=== PATIENT | female | born 1955 | race American Indian/Alaskan Native ===

== ENCOUNTER 2017-10-05 02:14 | Emergency (ER) | payer BC ==
[2017-10-05] MEDS ORDERED: NACL 0.9% 1000 ML 1,000 ML IV ONE (04:03)
[2017-10-05 05:32] LABS: Basophils % (Auto) 0.4 % (0.0-1.8); Eosinophils % (Auto) 0.2 % (0.0-4.3); Hematocrit 46.3 % (30.3-42.9); Hemoglobin 15.6 gm/dl (10.1-14.3); Lymphocytes # (Auto) 1.2 K/mm3 (1.2-5.4); Lymphocytes % (Auto) 18.1 % (13.4-35.0); Mean Corpuscular HGB Conc 34 % (30-34); Mean Corpuscular Hemoglobin 33 pg (28-32); Mean Corpuscular Volume 98 fl (79-97); Monocytes # (Auto) 0.5 K/mm3 (0.0-0.8); Monocytes % (Auto) 8.1 % (0.0-7.3); Platelet Count 315 K/mm3 (140-440); Red Blood Count 4.74 M/mm3 (3.65-5.03); Red Cell Distribution Width 12.7 % (13.2-15.2)
[2017-10-05 05:44] LABS: INR 0.95 (0.87-1.13)
[2017-10-05 05:54] LABS: Alanine Aminotransferase 12 units/L (7-56); Albumin 3.6 g/dL (3.9-5); BUN/Creatinine Ratio 12; Blood Urea Nitrogen 6 mg/dL (7-17); Hemolysis Index 2; Lipase 10 units/L (13-60)
[2017-10-05 09:42] LABS: Bacteria,Urine 1+ /HPF (Negative); Bilirubin,Urine NEG (Negative); Blood,Urine SM (Negative); Color,Urine Amber (Yellow); Mucus,Urine 1+ /HPF
[2017-10-05] MEDS ORDERED: K-DUR PO ONE (10:10)
--- NOTE | 2017-10-05 11:10 | Emergency Department Report ---
ED GI Bleed HPI - General Chief complaint: GI Bleed Stated complaint: RECTAL BLEEDING Time Seen by Provider: 10/05/17 10:07 Source: patient Mode of arrival: Ambulatory Limitations: No Limitations - History of Present Illness MD complaint: gross hematochezia -: days(s) (3) Location: [facility] Radiation: none Severity scale (0 -10): 0 Quality: other (achy x 1 yr) Consistency: intermittent Context: history of GI bleed, alcohol abuse (remote) - Related Data Home Medications Medication Instructions Recorded Confirmed Last Taken Cyanocobalamin (Vitamin B-12) 2,500 mcg PO DAILY 05/02/15 05/02/15 Unknown [Vitamin B12] Folic Acid [Folvite] 1 mg PO QDAY 05/02/15 05/02/15 Unknown Hydrochlorothiazide [HCTZ] 25 mg PO QDAY 05/02/15 05/02/15 Unknown Previous Rx's Medication Instructions Recorded Last Taken Type ALBUTEROL Inhaler [ProAir HFA 2 puff IH QID 5 Days inhalation 05/02/15 Unknown Rx Inhaler] Azithromycin [Zithromax Z-TORI] 0 mg PO DAILY 5 Days tab 05/02/15 Unknown Rx predniSONE [Deltasone] 40 mg PO QDAY 5 Days tab 05/02/15 Unknown Rx Allergies Allergy/AdvReac Type Severity Reaction Status Date / Time No Known Allergies Allergy Verified 05/02/15 12:39 ED Review of Systems ROS: Stated complaint: RECTAL BLEEDING Other details as noted in HPI Comment: All other systems reviewed and negative ENT: denies: ear pain Respiratory: denies: cough, shortness of breath, SOB with exertion Cardiovascular: denies: chest pain Endocrine: denies: excessive sweating Gastrointestinal: abdominal pain Skin: denies: rash ED Past Medical Hx - Past Medical History Previous Medical History?: Yes Hx Hypertension: Yes Hx GERD: Yes Hx Arthritis: Yes Additional medical history: HERNIA - Surgical History Additional Surgical History: HYSTERECTOMY. - Social History Smoking Status: Never Smoker - Medications Home Medications: Home Medications Medication Instructions Recorded Confirmed Last Taken Type ALBUTEROL Inhaler [ProAir HFA 2 puff IH QID 5 Days inhalation 05/02/15 Unknown Rx Inhaler] Azithromycin [Zithromax Z-TORI] 0 mg PO DAILY 5 Days tab 05/02/15 Unknown Rx Cyanocobalamin (Vitamin B-12) 2,500 mcg PO DAILY 05/02/15 05/02/15 Unknown History [Vitamin B12] Folic Acid [Folvite] 1 mg PO QDAY 05/02/15 05/02/15 Unknown History Hydrochlorothiazide [HCTZ] 25 mg PO QDAY 05/02/15 05/02/15 Unknown History predniSONE [Deltasone] 40 mg PO QDAY 5 Days tab 05/02/15 Unknown Rx ED Physical Exam - General Limitations: No Limitations General appearance: alert, in no apparent distress - Head Head exam: Present: atraumatic, normocephalic, normal inspection - Eye Eye exam: Present: normal appearance, PERRL, EOMI. Absent: scleral icterus - ENT ENT exam: Present: normal exam. Absent: mucous membranes dry - Neck Neck exam: Present: normal inspection - Respiratory Respiratory exam: Present: normal lung sounds bilaterally. Absent: respiratory distress, wheezes - Cardiovascular Cardiovascular Exam: Present: regular rate, normal rhythm, normal heart sounds. Absent: systolic murmur - GI/Abdominal GI/Abdominal exam: Present: soft, normal bowel sounds, mass (palpable mass in left paraumbilical ), other (well healed midline surgical scar). Absent: distended, tenderness, guarding, rebound - Rectal Rectal exam: Present: normal rectal tone, heme (-) stool, other. Absent: black stool, bloody stool, fecal impaction, hemorrhoids (external; stool was mustard yellow color; no blood noted), mass - Neurological Exam Neurological exam: Present: alert, oriented X3, CN II-XII intact, normal gait. Absent: motor sensory deficit - Psychiatric Psychiatric exam: Present: normal affect, normal mood - Skin Skin exam: Present: warm, dry, intact ED Course Vital Signs 10/05/17 10/05/17 10/05/17 02:14 02:20 03:57 Temperature 97.9 F 97.9 F Pulse Rate 81 63 80 Respiratory 18 18 Rate Blood Pressure 142/80 139/93 142/80 Blood Pressure [Left] O2 Sat by Pulse 97 98 98 Oximetry 10/05/17 09:52 Temperature 98.3 F Pulse Rate 76 Respiratory 16 Rate Blood Pressure Blood Pressure 162/83 [Left] O2 Sat by Pulse 97 Oximetry ED Medical Decision Making - Lab Data Result diagrams: 10/05/17 04:23 10/05/17 04:23 - EKG Data EKG shows normal: sinus rhythm Rate: normal (76) - EKG Data When compared to previous EKG there are: no significant change 10/05/17 11:11 NSR rate 76 pvcs; ;normal axis; qt prolonged; no stemi and no acute changes compared to 05/02/15 EKG - Medical Decision Making [id number] spoke with Dr Fang covering for Dr Mayer who stated to dc the pt and he will send a message through the computer to the office for the pt to follow up with Dr Mayer to call the office for a follow up appt - Differential Diagnosis hemorrhoids, polyps, avm, diverticulosis Critical care attestation.: If time is entered above; I have spent that time in minutes in the direct care of this critically ill patient, excluding procedure time. ED Disposition Clinical Impression: Hematochezia Disposition: TO HOME OR SELFCARE Is pt being admited?: No Does the pt Need Aspirin: No Condition: Stable Instructions: Rectal Bleeding (ED), Abdominal Pain (ED) Additional Instructions: call the office today for a follow up appt with Dr Moreno CARDOZAP return sooner if increased bleeding, if you feel faint, dizzy, short of breath, or if further concerns Be sure to call your respite worker for a follow up appt regarding your abnormal EKG Referrals: PARESH FERGUSON [Other] - 3-5 Days ANNA MAYER MD [Staff Physician] - [facility] Time of Disposition: 11:20 Print Language: ANDORRAN
[2017-10-05 11:51] VITALS: BP 160/85
== END 2017-10-05 11:56 | disposition home or self-care (01) ==
LOC: ED 02:14
DX: K92.1 Melena (principal); I10 Essential (primary) hypertension; K21.9 Gastro-esophageal reflux disease without esophagitis; M19.90 Unspecified osteoarthritis, unspecified site
CPT/HCPCS: 36415; 80053; 81001; 83690; 85025; 85610; 85730; 86850; 86900; 86901; 93005; 93010; 96360; 96361; 99284; J7030

== ENCOUNTER 2018-12-02 08:18 | Observation (INO) | payer BC ==
[2018-12-02] MEDS ORDERED: NACL 0.9% 1000 ML 1,000 ML IV ONE (08:33)
--- NOTE | 2018-12-02 08:48 | Emergency Department Report ---
ED Syncope HPI - General Chief Complaint: Syncope Stated Complaint: PASSED OUT AT WORK Time Seen by Provider: 12/02/18 08:33 Source: patient Exam Limitations: no limitations - History of Present Illness Initial Comments: Patient is a 62-year-old female Emergency room with similar episodes on 1. Patient denies head trauma. Patient denies headache. Patient states her syncopal episode was witnessed by her coworkers. Patient states she was unconscious for a few seconds. Patient states she is feeling weak. Patient states at the time she felt lightheaded and dizzy then passed out. Patient denies dizziness and lightheadedness at this time. Patient denies chest pain shortness of breath. Patient states she has not been drinking or eating very well for a couple weeks. Timing/Prior Episodes: no prior history, single episode today Precipitating Factors: Positive: diaphoresis, lightheadedness Context: standing, activity Loss of Consciousness: brief (seconds) Current Symptoms: weakness - Related Data Allergies/Adverse Reactions: Allergies No Known Allergies Allergy (Verified 05/02/15 12:39) Home Medications: Ambulatory Orders ALBUTEROL Inhaler (OR & NICU) [ProAir HFA Inhaler] 2 puff IH QID 5 Days inhalation 05/02/15 Azithromycin [Zithromax Z-TORI] 0 mg PO DAILY 5 Days tab 05/02/15 Cyanocobalamin (Vitamin B-12) [Vitamin B12] 2,500 mcg PO DAILY 05/02/15 Folic Acid [Folvite] 1 mg PO QDAY 05/02/15 hydroCHLOROthiazide [HCTZ] 25 mg PO QDAY 05/02/15 predniSONE [Deltasone] 40 mg PO QDAY 5 Days tab 05/02/15 ED Review of Systems ROS: Stated complaint: PASSED OUT AT WORK Other details as noted in HPI Constitutional: diaphoresis. denies: chills, fever Eyes: denies: eye pain, eye discharge, vision change ENT: denies: ear pain, throat pain Respiratory: denies: cough, shortness of breath, wheezing Cardiovascular: denies: chest pain, palpitations Endocrine: no symptoms reported Gastrointestinal: denies: abdominal pain, nausea, diarrhea Genitourinary: denies: urgency, dysuria, discharge Musculoskeletal: denies: back pain, joint swelling, arthralgia Skin: denies: rash, lesions Neurological: denies: headache, weakness, paresthesias Psychiatric: denies: anxiety, depression Hematological/Lymphatic: denies: easy bleeding, easy bruising ED Past Medical Hx - Past Medical History Hx Hypertension: Yes Hx GERD: Yes Hx of Cancer: Yes (uterine) Hx Arthritis: Yes Additional medical history: HERNIA. thyroid - Surgical History Past Surgical History?: Yes Additional Surgical History: HYSTERECTOMY. - Social History Smoking Status: Never Smoker Substance Use Type: Alcohol - Medications Home Medications: Home Medications Medication Instructions Recorded Confirmed Last Taken Type ALBUTEROL Inhaler (OR & NICU) 2 puff IH QID 5 Days inhalation 05/02/15 Unknown Rx [ProAir HFA Inhaler] Azithromycin [Zithromax Z-TORI] 0 mg PO DAILY 5 Days tab 05/02/15 Unknown Rx Cyanocobalamin (Vitamin B-12) 2,500 mcg PO DAILY 05/02/15 05/02/15 Unknown History [Vitamin B12] Folic Acid [Folvite] 1 mg PO QDAY 05/02/15 05/02/15 Unknown History hydroCHLOROthiazide [HCTZ] 25 mg PO QDAY 05/02/15 05/02/15 Unknown History predniSONE [Deltasone] 40 mg PO QDAY 5 Days tab 05/02/15 Unknown Rx ED Physical Exam - General Limitations: No Limitations General appearance: alert, in no apparent distress - Head Head exam: Present: atraumatic, normocephalic - Eye Eye exam: Present: normal appearance - ENT ENT exam: Present: mucous membranes dry - Neck Neck exam: Present: normal inspection - Respiratory Respiratory exam: Present: normal lung sounds bilaterally. Absent: respiratory distress, wheezes, rales - Cardiovascular Cardiovascular Exam: Present: regular rate, normal rhythm. Absent: systolic murmur, diastolic murmur, rubs, gallop - GI/Abdominal GI/Abdominal exam: Present: soft, normal bowel sounds - Rectal Rectal exam: Present: deferred - Extremities Exam Extremities exam: Present: normal inspection - Back Exam Back exam: Present: normal inspection - Neurological Exam Neurological exam: Present: alert, oriented X3 - Psychiatric Psychiatric exam: Present: normal affect, normal mood - Skin Skin exam: Present: warm, dry, intact, normal color. Absent: rash ED Course Vital Signs 12/02/18 12/02/18 12/02/18 08:28 08:57 09:00 Temperature 97.5 F L Pulse Rate 85 91 H Respiratory 18 20 16 Rate Blood Pressure 84/53 98/60 O2 Sat by Pulse 98 88 97 Oximetry - Reevaluation(s) Reevaluation #1: Discussed all results with patient. Patient will be admitted to the hospitalist service. Patient agrees to plan of care. 12/02/18 10:35 - Consultations Consultation #1: Hospitalist consulted for admission. Hospitalist to admit patient. Hospitalist to assume care patient. 12/02/18 10:29 ED Medical Decision Making - Lab Data Result diagrams: 12/02/18 08:42 12/02/18 08:42 - EKG Data -: EKG Interpreted by Me EKG shows normal: sinus rhythm, axis, intervals, QRS complexes, ST-T waves Rate: tachycardia - Radiology Data Radiology results: report reviewed CT HEAD WITHOUT CONTRAST: HISTORY: Syncope. TECHNIQUE: Sequential 2.5mm CT images. COMPARISON: none. FINDINGS: Cerebral Parenchyma: Within normal limits. Cerebellum: Within normal limits. Brainstem: Within normal limits. Ventricles: Normal. Sella: Normal. Extra-axial spaces: Normal. Basal Cisterns: Normal. Intracranial Hemorrhage: None. Midline Shift: None. Calvarium: Normal. Sinuses: Normal. Mastoid Air Cells: Normal. Visualized Orbits: Normal. IMPRESSION: Cranial CT scan within normal limits. - Medical Decision Making Patient is a 62-year-old female that presents emergency room for sequential. Patient found to be hypotensive in triage. Patient given fluids and her blood pressure improved slightly. Patient found to have chemistry abnormalities. Patient's head CT negative. Patient was admitted to the hospitalist service for further evaluation and treatment. - Differential Diagnosis syncope. Hypotension. Dehydration. Critical Care Time: Yes Critical care attestation.: If time is entered above; I have spent that time in minutes in the direct care of this critically ill patient, excluding procedure time. Critical Care Time: 45 minutes ED Disposition Clinical Impression: Hypokalemia, Dehydration, Acute renal insufficiency Hypotension Qualifiers: Hypotension type: unspecified hypotension type Qualified Code(s): I95.9 - Hypotension, unspecified Syncope Qualifiers: Syncope type: unspecified Qualified Code(s): R55 - Syncope and collapse Disposition: 09 OP ADMIT IP TO THIS HOSP Is pt being admited?: Yes Does the pt Need Aspirin: No Condition: Critical Referrals: AMIRAH PACHECO MD [Primary Care Provider] - 3-5 Days Time of Disposition: 10:30
--- NOTE | 2018-12-02 08:52 | Event Note ---
ED Screening Note ED Screening Note: syncope at work; completely out by report 2-3 other times this week; 1 w fall and 1 w sitting being worked up for thyroid disease recent weight loss on bp meds bp low in triage to main This initial assessment/diagnostic orders/clinical plan/treatment(s) is/are subject to change based on patients health status, clinical progression and re- assessment by fellow clinical providers in the ED. Further treatment and workup at subsequent clinical providers discretion. Patient/guardian urged not to elope from the ED as their condition may be serious if not clinically assessed and managed. Initial orders include:
[2018-12-02 08:55] LABS: Basophils % (Auto) 0.5 % (0.0-1.8); Eosinophils % (Auto) 0.2 % (0.0-4.3); Hematocrit 43.6 % (30.3-42.9); Hemoglobin 15.3 gm/dl (10.1-14.3); Lymphocytes # (Auto) 1.7 K/mm3 (1.2-5.4); Lymphocytes % (Auto) 17.8 % (13.4-35.0); Mean Corpuscular HGB Conc 35 % (30-34); Mean Corpuscular Volume 99 fl (79-97); Platelet Count 398 K/mm3 (140-440); Red Blood Count 4.41 M/mm3 (3.65-5.03); Red Cell Distribution Width 13.1 % (13.2-15.2)
[2018-12-02 09:21] LABS: Alanine Aminotransferase 32 units/L (7-56); Albumin 3.7 g/dL (3.9-5); BUN/Creatinine Ratio 9; Blood Urea Nitrogen 12 mg/dL (7-17); Calcium 8.2 mg/dL (8.4-10.2); Hemolysis Index 5
[2018-12-02 09:30] LABS: Creatine Kinase MB 1.9 ng/mL (0.0-4.0)
--- NOTE | 2018-12-02 09:36 | Cat Scan Report ---
CT HEAD WITHOUT CONTRAST: HISTORY: Syncope. TECHNIQUE: Sequential 2.5mm CT images. COMPARISON: none. FINDINGS: Cerebral Parenchyma: Within normal limits. Cerebellum: Within normal limits. Brainstem: Within normal limits. Ventricles: Normal. Sella: Normal. Extra-axial spaces: Normal. Basal Cisterns: Normal. Intracranial Hemorrhage: None. Midline Shift: None. Calvarium: Normal. Sinuses: Normal. Mastoid Air Cells: Normal. Visualized Orbits: Normal. IMPRESSION: Cranial CT scan within normal limits.
[2018-12-02] MEDS ORDERED: KCL 10MEQ/100ML 10 MEQ/100 ML BAG IV ONE (10:51)
[2018-12-02] MEDS: KCL 10MEQ/100ML 10 MEQ/100 ML BAG IV SCH ×2 (10:56→19:07)
[2018-12-02] MEDS ORDERED: K-DUR PO ONE ×2 (11:30→18:00)
[2018-12-02] MEDS ORDERED: SODIUM CHLORIDE FLUSH SYRINGE 10 ML IV PRN (12:48)
[2018-12-02] MEDS ORDERED: TYLENOL PO PRN (12:48)
[2018-12-02] MEDS ORDERED: ZOFRAN IV PRN (12:48)
[2018-12-02 14:03] LABS: BUN/Creatinine Ratio 12; Blood Urea Nitrogen 13 mg/dL (7-17); Calcium 7.9 mg/dL (8.4-10.2); Hemolysis Index 41
--- NOTE | 2018-12-02 14:26 | History and Physical Report ---
History of Present Illness Date of examination: 12/02/18 Date of admission: 12/02/18 10:48 Chief complaint: Syncopal episode History of present illness: 62-year-old female with past medical history significant for hypertension, thyroid problem, presented to the emergency department with complaints of syncopal episodes that happened this morning while she was at work. Patient denies any prodromal symptoms and she passed out for 2 seconds. Patient also passed out 2 days ago and right-side. Patient said she was not eating and drinking for the last few days because she doesn't have a taste for food. In the emergency department his blood pressure was low. patient said she has been taking BP meds every day. Patient was given IV fluids, and repleted electro lytes and admitted to the floor for Observation. CT head was negative. REVIEW OF SYSTEMS: GENERAL: no weight change, no fatigue, no fever HEAD: no head ache EYES: no blurry vision, no acute visual loss EARS: no hearing loss, no discharge, no earache NOSE: no stuffiness, no sneezing, no discharge MOUTH, THROAT AND NECK: no bleeding gums, no sore throat, no swollen neck CARDIAC: no palpitations, no dyspnea on exertion, no orthopnea, no PND, no edema, no chest pain RESPIRATORY: no shortness of breath, no wheeze, no cough, no sputum, no hemoptysis, no asthma GI: no decreased appetite, no nausea, no vomiting, no dysphagia, no diarrhea, no constipation, no abdominal pain URINARY: no change in frequency, no urgency, no polyuria, no hematuria, no incontinence MUSCULOSKELETAL: no muscle weakness, no pain, no joint stiffness NEUROLOGIC: no loss of sensation/numbness, no tingling, no tremors, no weakness/paralysis HEMATOLOGIC: no anemia, no easy bruising SKIN: no rashes ENDOCRINE: no heat/cold intolerance, no polyuria, no polydipsia, no thyroid problems, no diabetes PSYCHIATRIC: no anxiety, no depression, no suicidal ideations Past History Past Medical History: hypertension Past Surgical History: , hysterectomy Social history: alcohol abuse (drinks 3 glasses of mixed drinks everyday). denies: smoking Family history: diabetes (mother), stroke (mother) Medications and Allergies Allergies Allergy/AdvReac Type Severity Reaction Status Date / Time No Known Allergies Allergy Verified 05/02/15 12:39 Home Medications Medication Instructions Recorded Confirmed Last Taken Type Folic Acid [Folvite] 1 mg PO QDAY 05/02/15 12/02/18 Unknown History Lisinopril/Hydrochlorothiazide 1 tab PO QDAY 12/02/18 12/02/18 Unknown History [Zestoretic 20-25 mg] Potassium Chloride [K-Dur] 10 meq PO QDAY 12/02/18 12/02/18 Unknown History Active Meds: Active Medications Acetaminophen (Tylenol) 650 mg PO Q4H PRN PRN Reason: Pain MILD(1-3)/Fever >100.5/BORGES Famotidine (Pepcid) 20 mg PO BID BRIELLE Sodium Chloride (Nacl 0.45% 1000 Ml) 1,000 mls @ 100 mls/hr IV DIRECT BRIELLE Ondansetron HCl (Zofran) 4 mg IV Q8H PRN PRN Reason: Nausea And Vomiting Sodium Chloride (Sodium Chloride Flush Syringe 10 Ml) 10 ml IV BID BRIELLE Sodium Chloride (Sodium Chloride Flush Syringe 10 Ml) 10 ml IV PRN PRN PRN Reason: LINE FLUSH Exam - Physical Exam Narrative exam: Not in cardiopulmonary distress. The patient appeared well nourished and normally developed. Vital signs as documented. Head exam is unremarkable. No scleral icterus . Neck is without jugular venous distension, thyromegaly, or carotid bruits. Lungs are clear to auscultation. Cardiac exam reveals regular rate and Rhythm. First and second heart sounds normal. No murmurs, rubs or gallops. Abdominal exam reveals normal bowel sounds, no masses, no organomegaly and no aortic enlargement. Extremities are nonedematous and both femoral and pedal pulses are normal. STORE MERCHANDISER: Alert and oriented 3. No focal weakness. - Constitutional Vitals: Temp Pulse Resp BP Pulse Ox 97.5 F L 87 13 111/54 100 12/02/18 08:28 12/02/18 11:41 12/02/18 11:41 12/02/18 11:41 12/02/18 11:41 Results - Labs CBC & Chem 7: 12/02/18 08:42 12/02/18 13:16 Labs: Laboratory Last Values WBC 9.3 K/mm3 (4.5-11.0) 12/02/18 08:42 RBC 4.41 M/mm3 (3.65-5.03) 12/02/18 08:42 Hgb 15.3 gm/dl (10.1-14.3) H 12/02/18 08:42 Hct 43.6 % (30.3-42.9) H 12/02/18 08:42 MCV 99 fl (79-97) H 12/02/18 08:42 MCH 35 pg (28-32) H 12/02/18 08:42 MCHC 35 % (30-34) H 12/02/18 08:42 RDW 13.1 % (13.2-15.2) L 12/02/18 08:42 Plt Count 398 K/mm3 (140-440) 12/02/18 08:42 Lymph % (Auto) 17.8 % (13.4-35.0) 12/02/18 08:42 [place] % (Auto) 11.0 % (0.0-7.3) H 12/02/18 08:42 Eos % (Auto) 0.2 % (0.0-4.3) 12/02/18 08:42 Baso % (Auto) 0.5 % (0.0-1.8) 12/02/18 08:42 Lymph # 1.7 K/mm3 (1.2-5.4) 12/02/18 08:42 [place] # 1.0 K/mm3 (0.0-0.8) H 12/02/18 08:42 Eos # 0.0 K/mm3 (0.0-0.4) 12/02/18 08:42 Baso # 0.0 K/mm3 (0.0-0.1) 12/02/18 08:42 Seg Neutrophils % 70.5 % (40.0-70.0) H 12/02/18 08:42 Seg Neutrophils # 6.5 K/mm3 (1.8-7.7) 12/02/18 08:42 Sodium 135 mmol/L (137-145) L 12/02/18 13:16 Potassium 3.6 mmol/L (3.6-5.0) D 12/02/18 13:16 Chloride 96.0 mmol/L (98-107) L 12/02/18 13:16 Carbon Dioxide 26 mmol/L (22-30) 12/02/18 13:16 17 mmol/L 12/02/18 13:16 BUN 13 mg/dL (7-17) 12/02/18 13:16 1.1 mg/dL (0.7-1.2) 12/02/18 13:16 Estimated GFR > 60 ml/min 12/02/18 13:16 12 % 12/02/18 13:16 Glucose 87 mg/dL (65-100) 12/02/18 13:16 POC Glucose 109 (70-105) H 12/02/18 08:44 Calcium 7.9 mg/dL (8.4-10.2) L 12/02/18 13:16 Magnesium 1.80 mg/dL (1.7-2.3) 12/02/18 08:42 1.60 mg/dL (0.1-1.2) H 12/02/18 08:42 AST 72 units/L (5-40) H 12/02/18 08:42 ALT 32 units/L (7-56) 12/02/18 08:42 105 units/L (35-129) 12/02/18 08:42 41 units/L (30-135) 12/02/18 08:42 CK-MB (CK-2) 1.9 ng/mL (0.0-4.0) 12/02/18 08:42 CK-MB (CK-2) Rel Index 4.6 (0-4) H 12/02/18 08:42 < 0.010 ng/mL (0.00-0.029) 12/02/18 08:42 6.9 g/dL (6.3-8.2) 12/02/18 08:42 3.7 g/dL (3.9-5) L 12/02/18 08:42 1.2 % 12/02/18 08:42 8.5 ug/dL (4.0-12.0) 12/02/18 08:42 Assessment and Plan Assessment and plan: Syncopal episode, autonomic disequilibrium - Likely due to hypotension - Patient was given IV fluids - CT head negative - held the BP medications Hypokalemia, hyponatremia - Related to his potassium - Check magnesium level - Continue IV fluid NICOLLE; likely due to vasomotor nephropathy - IV fluid DVT prophylaxis - On heparin Disposition - Admit to medical floor for observation Advance Directives: Yes VTE prophylaxis?: Chemical Plan of care discussed with patient/family: Yes
[2018-12-02] MEDS ORDERED: KCL 10MEQ/100ML 10 MEQ/100 ML BAG IV SCH (19:00)
[2018-12-02] MEDS: NACL 0.45% 1000 ML 1,000 ML IV SCH (19:05)
[2018-12-02] MEDS ORDERED: DILAUDID IM PRN (21:27)
[2018-12-02] MEDS: SODIUM CHLORIDE FLUSH SYRINGE 10 ML IV SCH (21:42)
[2018-12-02] MEDS: PEPCID PO SCH (21:42)
[2018-12-02] MEDS: HEPARIN SUB-Q SCH (21:42)
[2018-12-03 04:01] VITALS: BP 114/78
[2018-12-03] MEDS: NACL 0.45% 1000 ML 1,000 ML IV SCH (04:52)
[2018-12-03] MEDS: HEPARIN SUB-Q SCH (05:00)
[2018-12-03 08:13] LABS: BUN/Creatinine Ratio 16; Blood Urea Nitrogen 13 mg/dL (7-17); Hemolysis Index 2
[2018-12-03] MEDS: PEPCID PO SCH (09:34)
[2018-12-03] MEDS: SODIUM CHLORIDE FLUSH SYRINGE 10 ML IV SCH (09:37)
--- NOTE | 2018-12-03 10:01 | Discharge Summary ---
Providers - Providers Date of Admission: 12/02/18 10:48 Attending physician: ROLANDO ARECHIGA MD [facility] Reason for admission: syncope, medication induced hypotension Condition: Stable Pertinent studies: CT head Hospital course: 62-year-old female with past medical history significant for hypertension, thyroid problem, presented to the emergency department with complaints of syncopal episodes that happened this morning while she was at work. Patient denies any prodromal symptoms and she passed out for 2 seconds. Patient also passed out 2 days ago and right-side. Patient said she was not eating and drinking for the last few days because she doesn't have a taste for food. In the emergency department his blood pressure was low. patient said she has been taking BP meds every day. Patient was given IV fluids, and repleted electrolytes and admitted to the floor for Observation. CT head was negative. Patient was admitted to the floor was treated with Iv fluids and electrolye abnormalities were corrected. patients symptoms resolved. patient advised to stop taking antihypertensive and discharged home. patient said has an appointment with her physician to check her thyroid. patient was hemodynamically stable at the time of discharge. Disposition: DC-01 TO HOME OR SELFCARE Time spent for discharge: 32 minutes - Discharge Diagnoses (1) Dehydration Status: Acute (2) Hypokalemia Status: Acute (3) Hypotension Status: Acute Qualifiers: Hypotension type: unspecified hypotension type Qualified Code(s): I95.9 - Hypotension, unspecified (4) Syncope Status: Acute Qualifiers: Syncope type: unspecified Qualified Code(s): R55 - Syncope and collapse (5) Acute renal insufficiency Status: Acute Core Measure Documentation - Palliative Care Palliative Care/ Comfort Measures: Not Applicable - Core Measures Any of the following diagnoses?: none Exam - Physical Exam Narrative exam: Not in cardiopulmonary distress. The patient appeared well nourished and normally developed. Vital signs as documented. Head exam is unremarkable. No scleral icterus . Neck is without jugular venous distension, thyromegaly, or carotid bruits. Lungs are clear to auscultation. Cardiac exam reveals regular rate and Rhythm. First and second heart sounds normal. No murmurs, rubs or gallops. Abdominal exam reveals normal bowel sounds, no masses, no organomegaly and no aortic enlargement. Extremities are nonedematous and both femoral and pedal pulses are normal. HAIR TINTER: Alert and oriented 3. No focal weakness. - Constitutional Vitals: Temp Pulse Resp BP Pulse Ox 98.3 F 97 H 16 114/78 98 12/02/18 23:46 12/02/18 23:46 12/02/18 23:46 12/02/18 23:46 12/02/18 23:46 Plan Activity: no restrictions Weight Bearing Status: Full Weight Bearing Diet: regular Follow up with: AMIRAH PACHECO MD [Primary Care Provider] - 3-5 Days Forms: Work/School Release Form
== END 2018-12-03 12:07 | disposition home or self-care (01) ==
LOC: ED 08:18 → 3A 10:48 → INTOOBSV 10:48
PROVIDERS: ADMIT Internal Medicine; ATTEND Internal Medicine
DX: R55 Syncope and collapse (principal); G90.8 Other disorders of autonomic nervous system; N17.0 Acute kidney failure with tubular necrosis; E87.1 Hypo-osmolality and hyponatremia; E87.6 Hypokalemia; I95.9 Hypotension, unspecified; I10 Essential (primary) hypertension; K21.9 Gastro-esophageal reflux disease without esophagitis; E86.0 Dehydration; F10.10 Alcohol abuse, uncomplicated; Y90.9 Presence of alcohol in blood, level not specified; Z79.51 Long term (current) use of inhaled steroids; Z90.710 Acquired absence of both cervix and uterus; Z85.42 Personal history of malignant neoplasm of other parts of uterus; Z82.3 Family history of stroke; Z83.3 Family history of diabetes mellitus
CPT/HCPCS: 36415; 70450; 80048; 80053; 82550; 82553; 82747; 82962; 83735; 84436; 84443; 84484; 85025; 93005; 93010; 96360; 99291; G0378; J1644; J2405; J3480; J7030; J1170

== ENCOUNTER 2019-05-04 04:01 | Inpatient (IN) | payer BC ==
[2019-05-04 05:28] LABS: Basophils % (Auto) 0.4 % (0.0-1.8); Eosinophils % (Auto) 0.1 % (0.0-4.3); Hematocrit 29.9 % (30.3-42.9); Hemoglobin 10.2 gm/dl (10.1-14.3); Lymphocytes # (Auto) 1.3 K/mm3 (1.2-5.4); Lymphocytes % (Auto) 10.5 % (13.4-35.0); Mean Corpuscular HGB Conc 34 % (30-34); Mean Corpuscular Volume 98 fl (79-97); Monocytes # (Auto) 1.7 K/mm3 (0.0-0.8); Monocytes % (Auto) 13.3 % (0.0-7.3); Platelet Count 289 K/mm3 (140-440); Red Blood Count 3.07 M/mm3 (3.65-5.03); Red Cell Distribution Width 13.4 % (13.2-15.2)
[2019-05-04 05:44] LABS: Alanine Aminotransferase 17 units/L (7-56); Albumin 3.1 g/dL (3.9-5); BUN/Creatinine Ratio 16; Blood Urea Nitrogen 11 mg/dL (7-17); Calcium 7.2 mg/dL (8.4-10.2); Hemolysis Index 1
[2019-05-04] MEDS ORDERED: POTASSIUM CHLORIDE ER 20 MEQ TAB PO ONE (06:32)
--- NOTE | 2019-05-04 06:46 | Emergency Department Report ---
ED Neuro Deficit HPI - General Chief Complaint: Neuro Symptoms/Deficit Stated Complaint: NUMBNESS IN HANDS/RT LEG Time Seen by Provider: 05/04/19 06:30 Source: patient Mode of arrival: Ambulatory Limitations: Physical Limitation - History of Present Illness Initial Comments: Mrs. Clark is a 63 yo female with hx of hyperthyroidism who presents with right leg weakness and bilateral hand cramping burning pain. For the past several weeks she's had stomach issues. She Has been unable to eat for the last 5 days due to severe nausea vomiting. She has had crampy abdominal pain which is worse after vomiting. Follow up by [facility] for "digestive problems". She underwent an MRI yesterday to investigate her GI symptoms. After obtaining the MRI outpatient setting, she developed right leg weakness. Had difficulty getting in and out of her car. Had difficulty driving. She felt stiff in her right leg. Her family member needed to drive her to the emergency department due to her severe symptoms. She subsequently developed bilateral hand burning. Extremely annoying sensation. She has lost 125 pounds over the last year due to thyroid disease. She does admit to drinking 2 drinks of vodka daily. She denies tobacco use. Due to her recent stomach issues, she has been unable to drink alcohol. PCP Dr. Cory Mejia. She is followed by an information systems security specialist is unable to recall the name of the specialist. -: Sudden, days(s) (1) Location: right leg Presenting Symptoms: Present: Weak/Paralyzed One Side History of same: No Place: other (after leaving MRI center) Severity: moderate Quality: weak, other (stiff) Improves With: none Worsens With: none On Anticoagulants: No Context: sudden onset Associated Symptoms: other (hand burning) Treatments Prior to Arrival: none - Related Data Home Medications: Home Medications Medication Instructions Recorded Confirmed Last Taken Folic Acid [Folvite] 1 mg PO QDAY 05/02/15 12/02/18 Unknown Allergies/Adverse Reactions: Allergies Allergy/AdvReac Type Severity Reaction Status Date / Time No Known Allergies Allergy Verified 05/02/15 12:39 ED Review of Systems ROS: Stated complaint: NUMBNESS IN HANDS/RT LEG Other details as noted in HPI Comment: All other systems reviewed and negative Constitutional: malaise. denies: fever Respiratory: denies: cough, shortness of breath Cardiovascular: denies: chest pain Gastrointestinal: abdominal pain, nausea, vomiting. denies: diarrhea Skin: denies: rash, lesions Neurological: paresthesias ED Past Medical Hx - Past Medical History Previous Medical History?: Yes Hx Hypertension: Yes Hx GERD: Yes Hx Arthritis: Yes Additional medical history: HERNIA;. Hyperthyroidism - Surgical History Past Surgical History?: Yes Additional Surgical History: HYSTERECTOMY. - Family History Family history: diabetes - Social History Smoking Status: Never Smoker Substance Use Type: Alcohol (drinks vodka cocktails daily) Other Social History: works as a cook in a fast food [email or web address] - Medications Home Medications: Home Medications Medication Instructions Recorded Confirmed Last Taken Type Folic Acid [Folvite] 1 mg PO QDAY 05/02/15 12/02/18 Unknown History ED Neuro Physical Exam - General Limitations: Physical Limitation General appearance: alert, in no apparent distress Suspected Stroke: Yes - Head Head exam: Present: atraumatic, normocephalic - Eye Eye exam: Present: normal appearance - ENT ENT exam: Present: mucous membranes moist - Neck Neck exam: Present: normal inspection, full ROM - Respiratory Respiratory exam: Present: normal lung sounds bilaterally. Absent: respiratory distress, wheezes, rales, rhonchi, stridor - Cardiovascular Cardiovascular Exam: Present: regular rate, normal rhythm, normal heart sounds. Absent: systolic murmur, diastolic murmur, rubs, gallop - GI/Abdominal GI/Abdominal exam: Present: soft, normal bowel sounds. Absent: distended, tenderness, guarding, rebound - Extremities Exam Extremities exam: Present: pedal edema, other (1+ pitting edema, right lower extremity larger than the left) - Neurological Exam Neurological exam: Present: alert, oriented X3 - NIHSS Assessment Interval: Baseline 1a. Level of Consciousness: alert/keenly responsive 1b. LOC Questions: answers both correctly 1c. LOC Commands: performs tasks correctly 2. Best Gaze: normal 3. Visual: no visual loss 4. Facial Palsy: normal symmetrical movement 5b. Motor Arm Right: no drift 5a. Motor Arm Left: no drift 6a. Motor Leg Left: some gravity effort 6b. Motor Leg Right: some gravity effort 7. Limb Ataxia: absent 8. Sensory: normal 9. Best Language: no aphasia 10. Dysarthria: normal 11. Extinction/Inattention: no abnormality Total Score: 4 Stroke Severity: Minor Stroke - Psychiatric Psychiatric exam: Present: normal affect, normal mood - Skin Skin exam: Present: warm, dry, intact, normal color. Absent: rash ED Course Vital Signs 05/04/19 05/04/19 05/04/19 04:07 04:50 06:00 Temperature 97.8 F 97.8 F Pulse Rate 77 90 96 H Respiratory 18 19 18 Rate Blood Pressure 125/69 Blood Pressure 111/71 126/79 [Left] O2 Sat by Pulse 98 98 97 Oximetry 05/04/19 05/04/19 05/04/19 06:30 07:00 07:17 Temperature Pulse Rate 106 H 98 H 99 H Respiratory 17 19 20 Rate Blood Pressure 122/74 122/74 Blood Pressure 117/55 [Left] O2 Sat by Pulse 98 97 96 Oximetry 05/04/19 05/04/19 07:30 08:02 Temperature Pulse Rate 100 H Respiratory 14 Rate Blood Pressure 117/55 109/51 Blood Pressure [Left] O2 Sat by Pulse 97 98 Oximetry - Lab Data Result diagrams: 05/04/19 05:18 05/04/19 05:18 Lab Results 05/04/19 05/04/19 05/04/19 Range/Units 05:18 05:18 06:39 WBC 12.7 H (4.5-11.0) K/mm3 RBC 3.07 L (3.65-5.03) M/mm3 Hgb 10.2 (10.1-14.3) gm/dl Hct 29.9 L (30.3-42.9) % MCV 98 H (79-97) fl MCH 33 H (28-32) pg MCHC 34 (30-34) % RDW 13.4 (13.2-15.2) % Plt Count 289 (140-440) K/mm3 Lymph % (Auto) 10.5 L (13.4-35.0) % [place] % (Auto) 13.3 H (0.0-7.3) % Eos % (Auto) 0.1 (0.0-4.3) % Baso % (Auto) 0.4 (0.0-1.8) % Lymph # 1.3 (1.2-5.4) K/mm3 [place] # 1.7 H (0.0-0.8) K/mm3 Eos # 0.0 (0.0-0.4) K/mm3 Baso # 0.0 (0.0-0.1) K/mm3 Seg Neutrophils % 75.7 H (40.0-70.0) % Seg Neutrophils # 9.6 H (1.8-7.7) K/mm3 PT (12.2-14.9) Sec. INR (0.87-1.13) APTT (24.2-36.6) Sec. Potassium 2.3 L* (3.6-5.0) mmol/L Carbon Dioxide 31 H (22-30) mmol/L BUN 11 (7-17) mg/dL Creatinine 0.7 (0.7-1.2) mg/dL Estimated GFR > 60 ml/min BUN/Creatinine Ratio 16 % Glucose 85 (65-100) mg/dL Calcium 7.2 L (8.4-10.2) mg/dL Magnesium 1.30 L (1.7-2.3) mg/dL Total Bilirubin 3.60 H (0.1-1.2) mg/dL AST 50 H (5-40) units/L ALT 17 (7-56) units/L Alkaline Phosphatase 69 (35-129) units/L Total Creatine Kinase (30-135) units/L CK-MB (CK-2) (0.0-4.0) ng/mL CK-MB (CK-2) Rel Index (0-4) Troponin T (0.00-0.029) ng/mL Total Protein 5.4 L (6.3-8.2) g/dL Albumin 3.1 L (3.9-5) g/dL Albumin/Globulin Ratio 1.3 % Lipase (13-60) units/L Vitamin B12 (211-911) pg/mL 05/04/19 05/04/19 05/04/19 Range/Units 06:39 06:39 06:59 WBC (4.5-11.0) K/mm3 RBC (3.65-5.03) M/mm3 Hgb (10.1-14.3) gm/dl Hct (30.3-42.9) % MCV (79-97) fl MCH (28-32) pg MCHC (30-34) % RDW (13.2-15.2) % Plt Count (140-440) K/mm3 Lymph % (Auto) (13.4-35.0) % [place] % (Auto) (0.0-7.3) % Eos % (Auto) (0.0-4.3) % Baso % (Auto) (0.0-1.8) % Lymph # (1.2-5.4) K/mm3 [place] # (0.0-0.8) K/mm3 Eos # (0.0-0.4) K/mm3 Baso # (0.0-0.1) K/mm3 Seg Neutrophils % (40.0-70.0) % Seg Neutrophils # (1.8-7.7) K/mm3 PT 14.7 (12.2-14.9) Sec. INR 1.16 H (0.87-1.13) APTT 29.4 (24.2-36.6) Sec. Potassium (3.6-5.0) mmol/L Carbon Dioxide (22-30) mmol/L BUN (7-17) mg/dL Creatinine (0.7-1.2) mg/dL Estimated GFR ml/min BUN/Creatinine Ratio % Glucose (65-100) mg/dL Calcium (8.4-10.2) mg/dL Magnesium (1.7-2.3) mg/dL Total Bilirubin (0.1-1.2) mg/dL AST (5-40) units/L ALT (7-56) units/L Alkaline Phosphatase (35-129) units/L Total Creatine Kinase 55 (30-135) units/L CK-MB (CK-2) 1.2 (0.0-4.0) ng/mL CK-MB (CK-2) Rel Index 2.1 (0-4) Troponin T < 0.010 (0.00-0.029) ng/mL Total Protein (6.3-8.2) g/dL Albumin (3.9-5) g/dL Albumin/Globulin Ratio % Lipase (13-60) units/L Vitamin B12 634.6 (211-911) pg/mL 05/04/19 Range/Units 06:59 WBC (4.5-11.0) K/mm3 RBC (3.65-5.03) M/mm3 Hgb (10.1-14.3) gm/dl Hct (30.3-42.9) % MCV (79-97) fl MCH (28-32) pg MCHC (30-34) % RDW (13.2-15.2) % Plt Count (140-440) K/mm3 Lymph % (Auto) (13.4-35.0) % [place] % (Auto) (0.0-7.3) % Eos % (Auto) (0.0-4.3) % Baso % (Auto) (0.0-1.8) % Lymph # (1.2-5.4) K/mm3 [place] # (0.0-0.8) K/mm3 Eos # (0.0-0.4) K/mm3 Baso # (0.0-0.1) K/mm3 Seg Neutrophils % (40.0-70.0) % Seg Neutrophils # (1.8-7.7) K/mm3 PT (12.2-14.9) Sec. INR (0.87-1.13) APTT (24.2-36.6) Sec. Potassium (3.6-5.0) mmol/L Carbon Dioxide (22-30) mmol/L BUN (7-17) mg/dL Creatinine (0.7-1.2) mg/dL Estimated GFR ml/min BUN/Creatinine Ratio % Glucose (65-100) mg/dL Calcium (8.4-10.2) mg/dL Magnesium (1.7-2.3) mg/dL Total Bilirubin (0.1-1.2) mg/dL AST (5-40) units/L ALT (7-56) units/L Alkaline Phosphatase (35-129) units/L Total Creatine Kinase (30-135) units/L CK-MB (CK-2) (0.0-4.0) ng/mL CK-MB (CK-2) Rel Index (0-4) Troponin T (0.00-0.029) ng/mL Total Protein (6.3-8.2) g/dL Albumin (3.9-5) g/dL Albumin/Globulin Ratio % Lipase 4 L (13-60) units/L Vitamin B12 (211-911) pg/mL 05/04/19 06:47 EKG obtained 0453 Normal sinus rhythm rate 95 beats per minute left axis deviation prolonged QT in terval frequent PVCs. No ST elevation nonspecific T wave pattern - Radiology Data Radiology results: report reviewed ct head: NAP - Medical Decision Making Mrs. Clrak presents with right lower extremity pain stiffness weakness. She also has bilateral hand pain. Differential diagnosis includes peripheral alcoholic neuropathy versus CVA versus lumbar radiculopathy to account for the right leg weakness. Bilateral hand weakness could also be attributed to hypokalemia versus neuropathic pain due to vitamin deficiency. Thamine level ordered. She will need CVA evaluation. Right lower extremity Doppler ultrasound also obtained. Admitted to the Medicine service for further treatment and evaluation. Although acute CVA is on the differential diagnosis, TPA is not indicated due to time of onset. Upon review of labs, elevated bilirubin, AST with hypoalbuminemia and hypoproteinemia suggestive of alcoholic liver disease Critical care attestation.: If time is entered above; I have spent that time in minutes in the direct care of this critically ill patient, excluding procedure time. ED Disposition Clinical Impression: Right leg weakness, Hypokalemia, Bilateral hand pain, Liver disease Disposition: OP ADMIT IP TO THIS HOSP Is pt being admited?: Yes Does the pt Need Aspirin: No Condition: Stable
[2019-05-04] MEDS ORDERED: SODIUM CHLORIDE 0.9% 500 ML 500 ML ONE (06:54)
[2019-05-04] MEDS: POTASSIUM CHLORIDE 10 MEQ 10 MEQ/100 ML BAG IV SCH ×4 (06:59→11:39)
[2019-05-04] MEDS ORDERED: SODIUM CHLORIDE 0.9% 500 ML 500 ML IV ONE (07:01)
[2019-05-04 07:22] LABS: Creatine Kinase MB 1.2 ng/mL (0.0-4.0)
[2019-05-04 07:23] LABS: INR 1.16 (0.87-1.13)
[2019-05-04 07:24] LABS: Partial Thromboplastin Time 29.4 Sec. (24.2-36.6)
--- NOTE | 2019-05-04 08:20 | Cat Scan Report ---
CT head without contrast INDICATION : right leg weakness. TECHNIQUE: Axial imaging performed from the skull apex through the skull base without the use of con trast. All CT scans at this location are performed using CT dose reduction for ALARA by means of aut omated exposure control. COMPARISON: CT head from 12/02/2018 FINDINGS: Parenchyma: No acute intracranial hemorrhage or parenchymal abnormality. There are stable periventri cular hypodensities which may be seen with microangiopathy. Ventricles: Ventricles are normal in size and appear symmetric. Soft tissues: Soft tissues including the orbits appear normal. Bones: No acute osseous abnormality. Sinuses: Sinuses and mastoid air cells are clear. IMPRESSION: No acute abnormality. Signer Name: Dick Mcgrath MD Signed: 05/04/2019 8:16 AM Workstation Name: [id number]
[2019-05-04] MEDS ORDERED: ASPIRIN 81 MG TAB CHEW PO ONE (08:33)
[2019-05-04 09:11] LABS: BUN/Creatinine Ratio 22; Blood Urea Nitrogen 11 mg/dL (7-17); Calcium 7.1 mg/dL (8.4-10.2); Hemolysis Index 12
[2019-05-04] MEDS ORDERED: POTASSIUM CHLORIDE 10 MEQ 10 MEQ/100 ML BAG IV ONE (09:58)
--- NOTE | 2019-05-04 10:05 | Vascular Lab Report ---
DUPLEX DOPPLER LOWER EXTREMITY VEINS, RIGHT INDICATION: right leg pain swelling. TECHNIQUE: Duplex doppler imaging was performed through the veins of the right lower extremity using venous comp ression and other maneuvers. COMPARISON: None available. FINDINGS: Common Femoral vein: Negative. Superficial Femoral vein: Negative. Popliteal vein: Negative. Calf veins: Negative. Additional findings: There is a small right popliteal/Cole's cyst. IMPRESSION: 1. No sonographic evidence for DVT in the right lower extremity. Signer Name: Zander Anne MD Signed: 05/04/2019 10:01 AM Workstation Name: [id number]
[2019-05-04] MEDS ORDERED: METOCLOPRAMIDE 10 MG/2 ML INJ IV PRN (12:20)
[2019-05-04] MEDS ORDERED: ONDANSETRON 4 MG/2 ML INJ IV PRN (12:20)
[2019-05-04] MEDS ORDERED: MAGNESIUM SULFATE 2 GM/50 ML BAG IV ONE (12:39)
--- NOTE | 2019-05-04 13:03 | History and Physical Report ---
History of Present Illness Date of examination: 05/04/19 Date of admission: 05/04/19 08:39 History of present illness: Patient is a 63 yo woman with a history of alcohol abuse and hypothyroidism who presents to [facility] ED with worsening severe constant bilateral hand cramping and right leg weakness and bilateral hand cramping burning pain. Her symptoms started about 2 weeks ago with daily n/v, abdominal distension and bloating. She denies any abdominal pains. She is under the care of Dr. Robert GI, who ordered MRI of the stomach yesterday. She is scheduled for EGD in May. She has been unable to eat for the last 5 days due to severe nausea vomiting. She had crampy abdominal pains which is worse after vomiting. She underwent an MRI yesterday to investigate her GI symptoms. After obtaining the MRI in the outpatient setting, she developed right leg weakness. She had difficulty getting in and out of her car. She had difficulty diving because of bilateral hand cramping and weakness. Her family member needed to drive her to the emergency department due to her severe symptoms. She subsequently developed bilateral hand burning. She has lost ~125 pounds over the last year due to thyroid disease. She does admit to drinking excessive amounts of Vodka and Diet Coke, half gallon of Vodka will last about 3 days but less on the weekends. She denies any trauma. She denies tobacco use. Due to her recent stomach issues, she has not been able to drink alcohol. Her last alcoholic drink was yesterday at 2:30 pm. PMH: as hpi PSH: hysterectomy and x 1 SH: no tob, +alcohol abuse, +occasional marijuana FH: DM and stroke ROS: Constitutional: denies: fever ENT: denies: throat or neck pain Respiratory: denies: cough, shortness of breath Cardiovascular: denies: chest pain Endocrine: + unexplained weight loss or gain Gastrointestinal: denies: abdominal pain, +nausea Genitourinary: denies: dysuria Rectal: denies no incontinence, no bleeding, no itching, no discharge Musculoskeletal: denies swelling, myaglia, muscle weakness Skin: denies: rash Neurological: denies: headache Hematological/Lymphatic: denies: easy bleeding or easy bruising Allergic/Immunologic: no urticaria, no allergic rhinitis, no anaphylaxis Psych: denies sadness or hopelessness, SI/HI Medications and Allergies Allergies Allergy/AdvReac Type Severity Reaction Status Date / Time No Known Allergies Allergy Verified 05/02/15 12:39 Active Meds: Active Medications Magnesium Sulfate (Magnesium Sulfate 2gm/50ml) 2 gm in 50 mls @ 25 mls/hr IV ONCE ONE Stop: 05/04/19 14:38 Metoclopramide HCl (Reglan) 10 mg IV Q8H PRN PRN Reason: Nausea And Vomiting Ondansetron HCl (Zofran) 4 mg IV Q4H PRN PRN Reason: N/V unrelieved by Reglan Potassium Chloride (K-Dur) 40 meq PO TID BRIELLE Exam - Physical Exam Narrative exam: Gen: thin frail, NAD, Awake, Alert, Orientated x 3, son at bedside HEENT: NCAT, EOMI, PERRL, OP Clear Neck: supple, no adenopathy, no thyromegaly, no JVD CVS/Heart: Regular tachy on my exam, HR 102, normal S1S2, pulses present bilaterally Chest/Lungs: CTA B, Symmetrical chest expansion, good air entry bilaterally GI/Abdomen: soft, distension, nontender, good bowel sounds, no guarding or rebound /Bladder: no suprapubic tenderness, no CVA or paraspinal tenderness Extermity/Skin: no c/c/e, no obvious rash MSK: FROM x 4 Neuro: CN 2-12 grossly intact, no new focal deficits, slight tremor but no asterix Psych: calm - Constitutional Vitals: Temp Pulse Resp BP Pulse Ox 98.9 F 96 H 18 108/69 97 05/04/19 11:34 05/04/19 11:34 05/04/19 11:34 05/04/19 11:34 05/04/19 11:34 Results - Labs CBC & Chem 7: 05/04/19 05:18 05/04/19 08:48 Labs: Abnormal lab results 05/04/19 05/04/19 05/04/19 Range/Units 05:18 05:18 06:39 WBC 12.7 H (4.5-11.0) K/mm3 RBC 3.07 L (3.65-5.03) M/mm3 Hct 29.9 L (30.3-42.9) % MCV 98 H (79-97) fl MCH 33 H (28-32) pg Lymph % (Auto) 10.5 L (13.4-35.0) % [place] % (Auto) 13.3 H (0.0-7.3) % [place] # 1.7 H (0.0-0.8) K/mm3 Seg Neutrophils % 75.7 H (40.0-70.0) % Seg Neutrophils # 9.6 H (1.8-7.7) K/mm3 INR (0.87-1.13) Potassium 2.3 L* (3.6-5.0) mmol/L Chloride (98-107) mmol/L Carbon Dioxide 31 H (22-30) mmol/L Creatinine (0.7-1.2) mg/dL Calcium 7.2 L (8.4-10.2) mg/dL Magnesium 1.30 L (1.7-2.3) mg/dL Total Bilirubin 3.60 H (0.1-1.2) mg/dL AST 50 H (5-40) units/L Total Protein 5.4 L (6.3-8.2) g/dL Albumin 3.1 L (3.9-5) g/dL Lipase (13-60) units/L 05/04/19 05/04/19 05/04/19 Range/Units 06:39 06:59 08:48 WBC (4.5-11.0) K/mm3 RBC (3.65-5.03) M/mm3 Hct (30.3-42.9) % MCV (79-97) fl MCH (28-32) pg Lymph % (Auto) (13.4-35.0) % [place] % (Auto) (0.0-7.3) % [place] # (0.0-0.8) K/mm3 Seg Neutrophils % (40.0-70.0) % Seg Neutrophils # (1.8-7.7) K/mm3 INR 1.16 H (0.87-1.13) Potassium 2.4 L* (3.6-5.0) mmol/L Chloride 93.6 L (98-107) mmol/L Carbon Dioxide (22-30) mmol/L Creatinine 0.5 L (0.7-1.2) mg/dL Calcium 7.1 L (8.4-10.2) mg/dL Magnesium (1.7-2.3) mg/dL Total Bilirubin (0.1-1.2) mg/dL AST (5-40) units/L Total Protein (6.3-8.2) g/dL Albumin (3.9-5) g/dL Lipase 4 L (13-60) units/L Assessment and Plan Patient is a 63 yo woman with a history of alcohol abuse and hypothyroidism who presents to [facility] ED with worsening severe constant bilateral hand cramping and right leg weakness and bilateral hand cramping burning pain. Her symptoms started about 2 weeks ago with daily n/v, abdominal distension and bloating. She is under the care of JAMES Mojica, who ordered MRI of the stomach yesterday. She is scheduled for EGD in May. She has been unable to eat for the last 5 days due to severe nausea vomiting. She had crampy abdominal pains which is worse after vomiting. She underwent an MRI yesterday to investigate her GI symptoms. After obtaining the MRI in the outpatient setting, she developed right leg weakness. She had difficulty getting in and out of her car. She had difficulty diving because of bilateral hand cramping and weakness. Her family member needed to drive her to the emergency department due to her severe symptoms. She subsequently developed bilateral hand burning. She has lost ~125 pounds over the last year due to thyroid disease. She does admit to drinking excessive amounts of Vodka and Diet Coke, half gallon of Vodka will last about 3 days but less on the weekends. She denies any trauma. She denies tobacco use. Due to her recent stomach issues, she has been unable to drink alcohol. Her last alcoholic drink was yesterday at 2:30 pm. * k 2.4, mg 1.3, ca 7.1, bilirubin total 3.60, ast 50, alt 17, ap 69, alb 3.1, w bc 12.7 * CT head negative for acute findings * Venous doppler right leg is negative for DVT * EKG Normal sinus rhythm rate 95 with nonspecific changes -Severe hypokalemia with proximal muscle weakness: replete and monitor bmp closely -Intractable N/V: dual anti-emetics therapy, elementary school counselor on stopping marijuana -Alcohol liver disease; Consult GI, treat with MARILU, elementary school counselor on stopping, she had been "weaning" alcohol for quite some time now, elementary school counselor on importance of thiamine -Hypomagnesemia: replete and monitor -Alcohol abuse, she had lost jobs due to ETOH: counseling done -Early Alcohol Withdrawal suspected: treat with CIWA, IVF DVT ppx sq lovenox full code
[2019-05-04] MEDS ORDERED: LORazepam 2 MG/ML VIAL IV PRN ×2 (13:16)
[2019-05-04] MEDS ORDERED: HALOPERIDOL LACTATE 5 MG/1 ML INJ IV PRN (13:16)
[2019-05-04] MEDS: POTASSIUM CHLORIDE ER 20 MEQ TAB PO SCH ×3 (13:21→22:04)
--- NOTE | 2019-05-04 13:29 | Gastroenterology Consultation ---
<GAYLE HEARN - Last Filed: 05/04/19 14:09> History of Present Illness - Reason for Consult Consult date: 05/04/19 alcoholic liver disease Requesting physician: VAMSHI AVENDANO - History of Present Illness Patient is a 63 y/o female with PMH of alcoholic cirrhosis and hypothyroidism who presented to ED with c/o bilateral hand cramping/burning and right leg weakness. Upon admission, she was found to have severe hypokalemia, along with hypomagnesemia to which she was admitted. GI has been consulted for liver disease. Patient is well known to our service and following by Dr. Robert. She was recently seen in clinic on 04/24/19 for c/o epigastic discomfort with occasional N/V, and associated wt loss. She underwent an outpatient abd CT yesterday for further evaluation of symptoms that showed stable hepatomegaly/hepatic steatosis (no lesions; patent hepatic vasculature), soft tissue anasarca (no ascites), cholelithiasis w/o acute cholecystitis, and stable ventral hernias and a pending outpatient EGD scheduled next month in May. This afternoon patient was resting in bed w/o acute distress and family at bedside. Reports continued decreased appetite but no current abd pain, N/V, signs of bleeding, jaundice, or LGI symptoms. Continues to drink daily alcohol but states she is "weaning herself off". Last EGD in 2010 showed hiatal hernia and hyperplastic gastric polyp. Last colonoscopy in 2014 showed diverticulosis and hemorrhoids. Past History Past Medical History: other (as per HPI) Past Surgical History: , hysterectomy Social history: alcohol abuse, other (marijuana) Family history: diabetes, stroke Medications and Allergies Allergies Allergy/AdvReac Type Severity Reaction Status Date / Time No Known Allergies Allergy Verified 05/02/15 12:39 Active Meds: Active Medications Haloperidol Lactate (Haldol) 5 mg IV Q1H PRN PRN Reason: Unrespon. to mult. doses BZD's Magnesium Sulfate (Magnesium Sulfate 2gm/50ml) 2 gm in 50 mls @ 25 mls/hr IV ONCE ONE Stop: 05/04/19 14:38 Last Admin: 05/04/19 13:21 Dose: 25 mls/hr Documented by: Levothyroxine Sodium (Synthroid) 50 mcg PO DAILY@0600 [facility] Lorazepam (Ativan) 2 mg IV Q1H PRN PRN Reason: CIWA-Ar 8-15 Lorazepam (Ativan) 4 mg IV Q1H PRN PRN Reason: CIWA-Ar 16-25 Metoclopramide HCl (Reglan) 10 mg IV Q8H PRN PRN Reason: Nausea And Vomiting Ondansetron HCl (Zofran) 4 mg IV Q4H PRN PRN Reason: N/V unrelieved by Reglan Potassium Chloride (K-Dur) 40 meq PO TID [facility] Last Admin: 05/04/19 13:21 Dose: 40 meq Documented by: Thiamine HCl (Vitamin B-1) 100 mg PO QDAY [facility] medications reviewed/updated as required Review of Systems - Review of Systems All systems: negative Constitutional: weight loss, poor appetite Gastrointestinal: no abdominal pain, no nausea, no vomiting, no hematemesis, no melena, no hematochezia Exam - Constitutional Vital Signs: Temp Pulse Resp BP Pulse Ox 98.9 F 96 H 18 108/69 97 05/04/19 11:34 05/04/19 11:34 05/04/19 11:34 05/04/19 11:34 05/04/19 11:34 General appearance: no acute distress - EENT Eyes: PERRL, EOM intact ENT: hearing intact - Respiratory Respiratory effort: normal - Cardiovascular Rhythm: regular - Gastrointestinal General gastrointestinal: Present: soft, non-tender, non-distended, normal bowel sounds - Integumentary Integumentary: Present: warm, dry - Neurologic Neurological: alert and oriented x3 - Labs CBC & Chem 7: 05/04/19 05:18 05/04/19 08:48 Lab Results: Laboratory Results - last 24 hr 05/04/19 05/04/19 05/04/19 05:18 05:18 06:39 WBC 12.7 H RBC 3.07 L Hgb 10.2 Hct 29.9 L MCV 98 H MCH 33 H MCHC 34 RDW 13.4 Plt Count 289 Lymph % (Auto) 10.5 L [place] % (Auto) 13.3 H Eos % (Auto) 0.1 Baso % (Auto) 0.4 Lymph # 1.3 [place] # 1.7 H Eos # 0.0 Baso # 0.0 Seg Neutrophils % 75.7 H Seg Neutrophils # 9.6 H PT INR APTT Sodium Potassium 2.3 L* Chloride Carbon Dioxide 31 H Anion Gap BUN 11 Creatinine 0.7 Estimated GFR > 60 BUN/Creatinine Ratio 16 Glucose 85 Calcium 7.2 L Magnesium 1.30 L Total Bilirubin 3.60 H AST 50 H ALT 17 Alkaline Phosphatase 69 Total Creatine Kinase CK-MB (CK-2) CK-MB (CK-2) Rel Index Troponin T Total Protein 5.4 L Albumin 3.1 L Albumin/Globulin Ratio 1.3 Lipase Vitamin B12 05/04/19 05/04/19 05/04/19 06:39 06:39 06:59 WBC RBC Hgb Hct MCV MCH MCHC RDW Plt Count Lymph % (Auto) [place] % (Auto) Eos % (Auto) Baso % (Auto) Lymph # [place] # Eos # Baso # Seg Neutrophils % Seg Neutrophils # PT 14.7 INR 1.16 H APTT 29.4 Sodium Potassium Chloride Carbon Dioxide Anion Gap BUN Creatinine Estimated GFR BUN/Creatinine Ratio Glucose Calcium Magnesium Total Bilirubin AST ALT Alkaline Phosphatase Total Creatine Kinase 55 CK-MB (CK-2) 1.2 CK-MB (CK-2) Rel Index 2.1 Troponin T < 0.010 Total Protein Albumin Albumin/Globulin Ratio Lipase Vitamin B12 634.6 05/04/19 05/04/19 06:59 08:48 WBC RBC Hgb Hct MCV MCH MCHC RDW Plt Count Lymph % (Auto) [place] % (Auto) Eos % (Auto) Baso % (Auto) Lymph # [place] # Eos # Baso # Seg Neutrophils % Seg Neutrophils # PT INR APTT Sodium 139 Potassium 2.4 L* Chloride 93.6 L Carbon Dioxide 28 Anion Gap 20 BUN 11 Creatinine 0.5 L Estimated GFR > 60 BUN/Creatinine Ratio 22 Glucose 80 Calcium 7.1 L Magnesium Total Bilirubin AST ALT Alkaline Phosphatase Total Creatine Kinase CK-MB (CK-2) CK-MB (CK-2) Rel Index Troponin T Total Protein Albumin Albumin/Globulin Ratio Lipase 4 L Vitamin B12 Assessment and Plan 1.alcoholic cirrhosis 2.decrease appetite/wt loss/occasional N/V/abd/epigastric discomfort- chronic -INR 1.16, plt 286 -T.tameka 3.60, AST 50, ALT 17, alk phos 69 -abdominal CT yesterday 05/03/19 (as outpatient) showed stable hepatomegaly/hepatic steato/sis (no lesions; patent hepatic vasculature), soft tissue anasarca (no ascites), cholelithiasis w/o acute cholecystitis, and stable ventral hernias -etiology- patient with hx of alcoholic cirrhosis; actively drinking -clinically, patient is currently w/o abd pain or N/V. No signs of bleeding or encephalopathy upon exam. -daily PPI -continue MVI -diet as tolerated -alcohol/marijuana cessation discussed/encouraged with patient -electrolyte management per primary team -continue to trend labs and supportive care -no further workup recommended per GI standpoint at this time -patient to f/u in clinic upon discharge for further management as outpatient (outpt EGD already scheduled next month in May) -will sign off, please call if needed <LOBO NORRIS - Last Filed: 05/04/19 17:42> Medications and Allergies Active Meds: Active Medications Haloperidol Lactate (Haldol) 5 mg IV Q1H PRN PRN Reason: Unrespon. to mult. doses BZD's Levothyroxine Sodium (Synthroid) 50 mcg PO DAILY@0600 [facility] Lorazepam (Ativan) 2 mg IV Q1H PRN PRN Reason: CIWA-Ar 8-15 Lorazepam (Ativan) 4 mg IV Q1H PRN PRN Reason: CIWA-Ar 16-25 Metoclopramide HCl (Reglan) 10 mg IV Q8H PRN PRN Reason: Nausea And Vomiting Ondansetron HCl (Zofran) 4 mg IV Q4H PRN PRN Reason: N/V unrelieved by Reglan Potassium Chloride (K-Dur) 40 meq PO TID [facility] Last Admin: 05/04/19 17:02 Dose: 40 meq Documented by: Thiamine HCl (Vitamin B-1) 100 mg PO QDAY [facility] Last Admin: 05/04/19 17:03 Dose: 100 mg Documented by: Exam - Constitutional Vital Signs: Temp Pulse Resp BP Pulse Ox 98.9 F 96 H 18 108/69 97 05/04/19 11:34 05/04/19 11:34 05/04/19 11:34 05/04/19 11:34 05/04/19 11:34 - Labs CBC & Chem 7: 05/04/19 05:18 05/04/19 08:48 Lab Results: Laboratory Results - last 24 hr 05/04/19 05/04/1919 05:18 05:18 06:39 WBC 12.7 H RBC 3.07 L Hgb 10.2 Hct 29.9 L MCV 98 H MCH 33 H MCHC 34 RDW 13.4 Plt Count 289 Lymph % (Auto) 10.5 L [place] % (Auto) 13.3 H Eos % (Auto) 0.1 Baso % (Auto) 0.4 Lymph # 1.3 [place] # 1.7 H Eos # 0.0 Baso # 0.0 Seg Neutrophils % 75.7 H Seg Neutrophils # 9.6 H PT INR APTT Sodium Potassium 2.3 L* Chloride Carbon Dioxide 31 H Anion Gap BUN 11 Creatinine 0.7 Estimated GFR > 60 BUN/Creatinine Ratio 16 Glucose 85 Calcium 7.2 L Magnesium 1.30 L Total Bilirubin 3.60 H AST 50 H ALT 17 Alkaline Phosphatase 69 Total Creatine Kinase CK-MB (CK-2) CK-MB (CK-2) Rel Index Troponin T Total Protein 5.4 L Albumin 3.1 L Albumin/Globulin Ratio 1.3 Lipase Vitamin B12 Urine Bilirubin Urine RBC (Auto) U Epithel Cells (Auto) Urine Opiates Screen Urine Methadone Screen Ur Barbiturates Screen Ur Phencyclidine Scrn Ur Amphetamines Screen U Benzodiazepines Scrn Urine Cocaine Screen 05/04/19 05/04/19 05/04/19 06:39 06:39 06:59 WBC RBC Hgb Hct MCV MCH MCHC RDW Plt Count Lymph % (Auto) [place] % (Auto) Eos % (Auto) Baso % (Auto) Lymph # [place] # Eos # Baso # Seg Neutrophils % Seg Neutrophils # PT 14.7 INR 1.16 H APTT 29.4 Sodium Potassium Chloride Carbon Dioxide Anion Gap BUN Creatinine Estimated GFR BUN/Creatinine Ratio Glucose Calcium Magnesium Total Bilirubin AST ALT Alkaline Phosphatase Total Creatine Kinase 55 CK-MB (CK-2) 1.2 CK-MB (CK-2) Rel Index 2.1 Troponin T < 0.010 Total Protein Albumin Albumin/Globulin Ratio Lipase Vitamin B12 634.6 Urine Bilirubin Urine RBC (Auto) U Epithel Cells (Auto) Urine Opiates Screen Urine Methadone Screen Ur Barbiturates Screen Ur Phencyclidine Scrn Ur Amphetamines Screen U Benzodiazepines Scrn Urine Cocaine Screen 05/04/19 05/04/19 05/04/19 06:59 08:48 17:15 WBC RBC Hgb Hct MCV MCH MCHC RDW Plt Count Lymph % (Auto) [place] % (Auto) Eos % (Auto) Baso % (Auto) Lymph # [place] # Eos # Baso # Seg Neutrophils % Seg Neutrophils # PT INR APTT Sodium 139 Potassium 2.4 L* Chloride 93.6 L Carbon Dioxide 28 Anion Gap 20 BUN 11 Creatinine 0.5 L Estimated GFR > 60 BUN/Creatinine Ratio 22 Glucose 80 Calcium 7.1 L Magnesium Total Bilirubin AST ALT Alkaline Phosphatase Total Creatine Kinase CK-MB (CK-2) CK-MB (CK-2) Rel Index Troponin T Total Protein Albumin Albumin/Globulin Ratio Lipase 4 L Vitamin B12 Urine Bilirubin Sm Urine RBC (Auto) 3.0 U Epithel Cells (Auto) 2.0 Urine Opiates Screen Urine Methadone Screen Ur Barbiturates Screen Ur Phencyclidine Scrn Ur Amphetamines Screen U Benzodiazepines Scrn Urine Cocaine Screen 05/04/19 17:15 WBC RBC Hgb Hct MCV MCH MCHC RDW Plt Count Lymph % (Auto) [place] % (Auto) Eos % (Auto) Baso % (Auto) Lymph # [place] # Eos # Baso # Seg Neutrophils % Seg Neutrophils # PT INR APTT Sodium Potassium Chloride Carbon Dioxide Anion Gap BUN Creatinine Estimated GFR BUN/Creatinine Ratio Glucose Calcium Magnesium Total Bilirubin AST ALT Alkaline Phosphatase Total Creatine Kinase CK-MB (CK-2) CK-MB (CK-2) Rel Index Troponin T Total Protein Albumin Albumin/Globulin Ratio Lipase Vitamin B12 Urine Bilirubin Urine RBC (Auto) U Epithel Cells (Auto) Urine Opiates Screen Presumptive negative Urine Methadone Screen Presumptive negative Ur Barbiturates Screen Presumptive negative Ur Phencyclidine Scrn Presumptive negative Ur Amphetamines Screen Presumptive negative U Benzodiazepines Scrn Presumptive negative Urine Cocaine Screen Presumptive negative Assessment and Plan Patient seen and examined. Agree with note above. follow-up in gi clinic for further management of abd pain (EGD scheduled) and alcoholic liver disease as above (cessation again discussed with pt).
--- NOTE | 2019-05-04 13:57 | XRay Report ---
ABDOMEN 3 VIEW(S) INDICATION: Nausea with vomiting. Cough. COMPARISON: No relevant prior imaging study available. FINDINGS: Bowel gas pattern: No significant abnormality. Free air: None seen. Stones: None seen. Chest: No acute findings. Additional Findings: No additional significant findings. IMPRESSION: No acute abnormality of the abdomen. Signer Name: Conner Antoine MD Signed: 05/04/2019 1:53 PM Workstation Name: [id number]
[2019-05-04] MEDS: THIAMINE 100 MG TAB PO SCH (17:03)
[2019-05-04 17:36] LABS: Bacteria,Urine 2+ /HPF (Negative); Bilirubin,Urine SM (Negative); Blood,Urine SM (Negative); Color,Urine Amber (Yellow); Mucus,Urine FEW /HPF
[2019-05-04 17:39] LABS: Amphetamine Screen,Urine PRESUMPTIVE NEGATIVE; Benzodiazepines Screen,Urine PRESUMPTIVE NEGATIVE; Cocaine Screen,Urine PRESUMPTIVE NEGATIVE; Methadone Screen,Urine PRESUMPTIVE NEGATIVE; Opiate Screen,Urine PRESUMPTIVE NEGATIVE
[2019-05-04 17:47] LABS: WBC,Urine > 182.0 /HPF (0.0-6.0)
[2019-05-04 17:48] LABS: Ictotest,Urine Negative (Negative)
[2019-05-04 18:21] LABS: Cannabinoid Screen,Urine PRESUMPTIVE POSITIVE
[2019-05-05] MEDS ORDERED: LEVOTHYROXINE 50 MCG TAB PO SCH (06:00)
[2019-05-05 08:04] LABS: Hematocrit 29.1 % (30.3-42.9); Hemoglobin 9.8 gm/dl (10.1-14.3); Mean Corpuscular HGB Conc 34 % (30-34); Mean Corpuscular Volume 100 fl (79-97); Platelet Count 329 K/mm3 (140-440); Red Blood Count 2.92 M/mm3 (3.65-5.03); Red Cell Distribution Width 13.8 % (13.2-15.2)
[2019-05-05 08:31] LABS: BUN/Creatinine Ratio 24; Blood Urea Nitrogen 12 mg/dL (7-17); Calcium 7.4 mg/dL (8.4-10.2); Hemolysis Index 1
[2019-05-05] MEDS: POTASSIUM CHLORIDE ER 20 MEQ TAB PO SCH ×3 (09:00→20:09)
[2019-05-05] MEDS: THIAMINE 100 MG TAB PO SCH (09:50)
--- NOTE | 2019-05-05 16:30 | Progress Note ---
Assessment and Plan Assessment and plan: Patient is a 63 yo woman with a history of alcohol abuse and hypothyroidism who presents to [facility] ED with worsening severe constant bilateral hand cramping and right leg weakness and bilateral hand cramping burning pain. Her symptoms started about 2 weeks ago with daily n/v, abdominal distension and bloating. She is under the care of JAMES Mojica, who ordered MRI of the stomach yesterday. She is scheduled for EGD in May. She has been unable to eat for the last 5 days due to severe nausea vomiting. She had crampy abdominal pains which is worse after vomiting. She underwent an MRI yesterday to investigate her GI symptoms. After obtaining the MRI in the outpatient setting, she developed right leg weakness. She had difficulty getting in and out of her car. She had difficulty diving because of bilateral hand cramping and weakness. Her family member needed to drive her to the emergency department due to her severe symptoms. She subsequently developed bilateral hand burning. She has lost ~125 pounds over the last year due to thyroid disease. She does admit to drinking excessive amounts of Vodka and Diet Coke, half gallon of Vodka will last about 3 days but less on the weekends. She denies any trauma. She denies tobacco use. Due to her recent stomach issues, she has been unable to drink alcohol. Her last alcoholic drink was yesterday at 2:30 pm. * k 2.4, mg 1.3, ca 7.1, bilirubin total 3.60, ast 50, alt 17, ap 69, alb 3.1, wbc 12.7 * CT head negative for acute findings * Venous doppler right leg is negative for DVT * EKG Normal sinus rhythm rate 95 with nonspecific changes * AB/cxr unremarkable NEW -7 beat Run of NSVT: replete potassium, follow levels, get ECHO, consulted Cardiology -Severe hypokalemia with proximal muscle weakness: replete and monitor bmp closely, On around the clock potassium supplementation, consider reducing dose tomorrow. -Intractable N/V: dual anti-emetics therapy, psychologist counseling on stopping marijuana -Alcohol liver disease; Consult GI, treat with MARILU, psychologist counseling on stopping, she had been "weaning" alcohol for quite some time now, psychologist counseling on importance of thiamine -Hypomagnesemia: replete and monitor -Alcohol abuse: counseling done -Early Alcohol Withdrawal suspected: treat with CIWA, IVF -H/O Syncope on prior admission: check ECHO -Sepsis due to UTI, poa: start IV rocephin, follow urine culture Hypothyroidism: reviewed TSH, continue home dose DVT ppx sq lovenox full code History Interval history: Patient was seen and examined. Follow-up on current diagnosis. No overnight events reported to me. Patient denies any chest pain, shortness breath, nausea/vomiting or severe headaches. Imaging, nursing note, chart, labs and old chart reviewed. Discussed with patient. Hospitalist Physical - Physical exam Narrative exam: Gen: thin frail, NAD, Awake, Alert, Orientated x 3, HEENT: NCAT, EOMI, PERRL, OP Clear Neck: supple, no adenopathy, no thyromegaly, no JVD CVS/Heart: Regular tachy on my exam, HR 102, normal S1S2, pulses present bilaterally Chest/Lungs: bilateral wheezing, Symmetrical chest expansion, good air entry bilaterally GI/Abdomen: soft, distension, nontender, good bowel sounds, no guarding or rebound /Bladder: no suprapubic tenderness, no CVA or paraspinal tenderness Extermity/Skin: no c/c/e, no obvious rash MSK: FROM x 4 Neuro: CN 2-12 grossly intact, no new focal deficits, slight tremor but no asterix Psych: calm - Constitutional Vitals: Temp Pulse Resp BP Pulse Ox 98.7 F 95 H 18 130/95 95 05/05/19 11:47 05/05/19 14:26 05/05/19 11:47 05/05/19 11:47 05/05/19 11:47 Results - Labs CBC & Chem 7: 05/05/19 07:22 05/05/19 07:22 Labs: Laboratory Last Values WBC 9.0 K/mm3 (4.5-11.0) 05/05/19 07:22 RBC 2.92 M/mm3 (3.65-5.03) L 05/05/19 07:22 Hgb 9.8 gm/dl (10.1-14.3) L 05/05/19 07:22 Hct 29.1 % (30.3-42.9) L 05/05/19 07:22 MCV 100 fl (79-97) H 05/05/19 07:22 MCH 34 pg (28-32) H 05/05/19 07:22 MCHC 34 % (30-34) 05/05/19 07:22 RDW 13.8 % (13.2-15.2) 05/05/19 07:22 Plt Count 329 K/mm3 (140-440) 05/05/19 07:22 Lymph % (Auto) 10.5 % (13.4-35.0) L 05/04/19 05:18 [place] % (Auto) 13.3 % (0.0-7.3) H 05/04/19 05:18 Eos % (Auto) 0.1 % (0.0-4.3) 05/04/19 05:18 Baso % (Auto) 0.4 % (0.0-1.8) 05/04/19 05:18 Lymph # 1.3 K/mm3 (1.2-5.4) 05/04/19 05:18 [place] # 1.7 K/mm3 (0.0-0.8) H 05/04/19 05:18 Eos # 0.0 K/mm3 (0.0-0.4) 05/04/19 05:18 Baso # 0.0 K/mm3 (0.0-0.1) 05/04/19 05:18 Seg Neutrophils % 75.7 % (40.0-70.0) H 05/04/19 05:18 Seg Neutrophils # 9.6 K/mm3 (1.8-7.7) H 05/04/19 05:18 PT 14.7 Sec. (12.2-14.9) 05/04/19 06:39 INR 1.16 (0.87-1.13) H 05/04/19 06:39 APTT 29.4 Sec. (24.2-36.6) 05/04/19 06:39 Sodium 143 mmol/L (137-145) 05/05/19 07:22 Potassium 3.3 mmol/L (3.6-5.0) L D 05/05/19 07:22 Chloride 97.1 mmol/L (98-107) L 05/05/19 07:22 Carbon Dioxide 30 mmol/L (22-30) 05/05/19 07:22 Anion Gap 19 mmol/L 05/05/19 07:22 BUN 12 mg/dL (7-17) 05/05/19 07:22 Creatinine 0.5 mg/dL (0.7-1.2) L 05/05/19 07:22 Estimated GFR > 60 ml/min 05/05/19 07:22 BUN/Creatinine Ratio 24 % 05/05/19 07:22 Glucose 75 mg/dL (65-100) 05/05/19 07:22 Calcium 7.4 mg/dL (8.4-10.2) L 05/05/19 07:22 Magnesium 1.90 mg/dL (1.7-2.3) 05/05/19 07:22 Total Bilirubin 3.60 mg/dL (0.1-1.2) H 05/04/19 05:18 AST 50 units/L (5-40) H 05/04/19 05:18 ALT 17 units/L (7-56) 05/04/19 05:18 Alkaline Phosphatase 69 units/L (35-129) 05/04/19 05:18 Ammonia 39.0 umol/L (25-60) 05/05/19 07:22 Total Creatine Kinase 55 units/L (30-135) 05/04/19 06:39 CK-MB (CK-2) 1.2 ng/mL (0.0-4.0) 05/04/19 06:39 CK-MB (CK-2) Rel Index 2.1 (0-4) 05/04/19 06:39 Troponin T < 0.010 ng/mL (0.00-0.029) 05/04/19 06:39 Total Protein 5.4 g/dL (6.3-8.2) L 05/04/19 05:18 Albumin 3.1 g/dL (3.9-5) L 05/04/19 05:18 Albumin/Globulin Ratio 1.3 % 05/04/19 05:18 Lipase 4 units/L (13-60) L 05/04/19 06:59 Vitamin B12 634.6 pg/mL (211-911) 05/04/19 06:59 TSH 0.397 mlU/mL (0.270-4.200) 05/05/19 07:22 Urine Color [place] (Yellow) 05/04/19 17:15 Urine Turbidity Slightly-cloudy (Clear) 05/04/19 17:15 Urine pH 6.0 (5.0-7.0) 05/04/19 17:15 Ur Specific [place] 1.025 (1.003-1.030) 05/04/19 17:15 Urine Protein 30 mg/dl mg/dL (Negative) 05/04/19 17:15 Urine Glucose (UA) Neg mg/dL (Negative) 05/04/19 17:15 Urine Ketones Tr mg/dL (Negative) 05/04/19 17:15 Urine Blood Sm (Negative) 05/04/19 17:15 Urine Nitrite Neg (Negative) 05/04/19 17:15 Urine Bilirubin Sm (Negative) 05/04/19 17:15 Urine Ictotest Negative (Negative) 05/04/19 17:15 Urine Urobilinogen 4.0 mg/dL (<2.0) 05/04/19 17:15 Ur Leukocyte Esterase Mod (Negative) 05/04/19 17:15 Urine WBC (Auto) > 182.0 /HPF (0.0-6.0) H 05/04/19 17:15 Urine RBC (Auto) 3.0 /HPF (0.0-6.0) 05/04/19 17:15 U Epithel Cells (Auto) 2.0 /HPF (0-13.0) 05/04/19 17:15 Urine Bacteria (Auto) 2+ /HPF (Negative) 05/04/19 17:15 Urine Mucus Few /HPF 05/04/19 17:15 Urine Opiates Screen Presumptive negative 05/04/19 17:15 Urine Methadone Screen Presumptive negative 05/04/19 17:15 Ur Barbiturates Screen Presumptive negative 05/04/19 17:15 Ur Phencyclidine Scrn Presumptive negative 05/04/19 17:15 Ur Amphetamines Screen Presumptive negative 05/04/19 17:15 U Benzodiazepines Scrn Presumptive negative 05/04/19 17:15 Urine Cocaine Screen Presumptive negative 05/04/19 17:15 U Marijuana (THC) Screen Presumptive positive 05/04/19 17:15 Drugs of Abuse Note Disclamer 05/04/19 17:15 Active Medications - Current Medications Current Medications: Generic Name Dose Route Start Last Admin Trade Name Freq PRN Reason Stop Dose Admin Haloperidol Lactate 5 mg 05/04/19 13:16 Haldol IV Q1H PRN Unrespon. to mult. doses BZD's Ceftriaxone Sodium 1 gm in 50 mls @ 100 mls/hr 05/05/19 17:00 Rocephin/Ns 1 Gm/50 Ml IV Q24HR [facility] Protocol Levothyroxine Sodium 25 mcg 05/06/19 06:00 Synthroid PO DAILY@0600 [facility] Lorazepam 2 mg 05/04/19 13:16 Ativan IV Q1H PRN CIWA-Ar 8-15 Lorazepam 4 mg 05/04/19 13:16 Ativan IV Q1H PRN CIWA-Ar 16-25 Metoclopramide HCl 10 mg 05/04/19 12:20 Reglan IV Q8H PRN Nausea And Vomiting Ondansetron HCl 4 mg 05/04/19 12:20 Zofran IV Q4H PRN N/V unrelieved by Reglan Potassium Chloride 40 meq 05/04/19 12:30 05/05/19 13:19 K-Dur PO 40 meq TID B[facility]ELLE Administration Thiamine HCl 100 mg 05/04/19 14:00 05/05/19 09:50 Vitamin B-1 PO 100 mg QDAY B[facility]ELLE Administration Nutrition/Malnutrition Assess - Dietary Evaluation Nutrition/Malnutrition Findings: Nutrition Notes Start: 05/04/19 12:51 Freq: Status: Active Protocol: Document 05/05/19 14:48 RM (Rec: 05/05/19 15:03 RM [id number]) Nutrition Notes Initial or Follow up Brief Note Other Pertinent Diagnosis Hypothyroidism, ETOH cirrhosis , hypokalemia, bilat hand pain Current Diet GI soft Subjective/Other Information Kitchen staff called for recommendation of substitute for Ensure Clear d/t being out of it. Sql Server Developer spoke w/pt and pt agreed to Glucerna [place] substitute. Nutrition Intervention Follow-Up By: 05/09/19 Additional Comments Follow for PO and ONS intakes
[2019-05-05] MEDS ORDERED: ALBUTEROL 2.5 MG/3 ML NEBU IH PRN (16:32)
[2019-05-05] MEDS: ACETAMINOPHEN 325 MG TAB PO PRN ×2 (17:25→23:51)
[2019-05-05] MEDS: cefTRIAXone/NS 1 GM/50 ML 1 GM/50 ML BAG IV SCH (19:27)
[2019-05-06] MEDS: LEVOTHYROXINE 25 MCG TAB PO SCH (06:00)
[2019-05-06 06:42] LABS: Hematocrit 31.5 % (30.3-42.9); Hemoglobin 10.4 gm/dl (10.1-14.3); Mean Corpuscular HGB Conc 33 % (30-34); Mean Corpuscular Volume 101 fl (79-97); Platelet Count 396 K/mm3 (140-440); Red Blood Count 3.13 M/mm3 (3.65-5.03); Red Cell Distribution Width 13.8 % (13.2-15.2)
[2019-05-06 07:04] LABS: BUN/Creatinine Ratio 23; Blood Urea Nitrogen 9 mg/dL (7-17); Calcium 8.2 mg/dL (8.4-10.2); Hemolysis Index 37
[2019-05-06] MEDS: POTASSIUM CHLORIDE ER 20 MEQ TAB PO SCH (09:51)
[2019-05-06] MEDS: THIAMINE 100 MG TAB PO SCH (09:51)
[2019-05-06] MEDS: cefTRIAXone/NS 1 GM/50 ML 1 GM/50 ML BAG IV SCH (09:52)
--- NOTE | 2019-05-06 11:36 | Consultation ---
History of Present Illness Consult date: 05/06/19 Requesting physician: VAMSHI AVENDANO Consult reason: arrhythmia History of present illness: The patient claims that 2 days ago, she developed right lower extremity weakness associated weakness in both hands upon waking up. She presented to the emergency department on account of this. Brain CT scan did not reveal any acute findings. She claims that weakness resolved yesterday. While on the monitor, she was noted to have a 7-beat run of nonsustained VT yesterday evening. This morning, she demonstrated a 5-beat run of nonsustained VT. She denies palpitations, chest pain, dyspnea or dizziness. Past History Past Medical History: hypothyroidism Past Surgical History: hysterectomy Social history: alcohol abuse. denies: smoking Family history: denies: CAD Medications and Allergies Allergies Allergy/AdvReac Type Severity Reaction Status Date / Time No Known Allergies Allergy Verified 05/02/15 12:39 Home Medications Medication Instructions Recorded Confirmed Last Taken Type No Known Home Medications [No 05/05/19 05/05/19 Unknown History Reported Home Medications] Active Meds: Active Medications Acetaminophen (Tylenol) 325 mg PO Q6H PRN PRN Reason: Non Cardiac Pain or Temp>100.5 Last Admin: 05/05/19 23:51 Dose: 325 mg Documented by: Albuterol (Proventil) 2.5 mg IH Q4HRT PRN PRN Reason: Wheezing Haloperidol Lactate (Haldol) 5 mg IV Q1H PRN PRN Reason: Unrespon. to mult. doses BZD's Ceftriaxone Sodium (Rocephin/Ns 1 Gm/50 Ml) 1 gm in 50 mls @ 100 mls/hr IV Q24HR [facility]; Protocol Last Admin: 05/06/19 09:52 Dose: 100 mls/hr Documented by: Levothyroxine Sodium (Synthroid) 25 mcg PO DAILY@0600 [facility] Last Admin: 05/06/19 06:00 Dose: 25 mcg Documented by: Lorazepam (Ativan) 2 mg IV Q1H PRN PRN Reason: CIWA-Ar 8-15 Lorazepam (Ativan) 4 mg IV Q1H PRN PRN Reason: CIWA-Ar 16-25 Metoclopramide HCl (Reglan) 10 mg IV Q8H PRN PRN Reason: Nausea And Vomiting Ondansetron HCl (Zofran) 4 mg IV Q4H PRN PRN Reason: N/V unrelieved by Reglan Potassium Chloride (K-Dur) 40 meq PO TID [facility] Last Admin: 05/06/19 09:51 Dose: 40 meq Documented by: Thiamine HCl (Vitamin B-1) 100 mg PO QDAY [facility] Last Admin: 05/06/19 09:51 Dose: 100 mg Documented by: Review of Systems Constitutional: no fever, no chills Ears, nose, mouth and throat: no ear pain, no ear discharge, no sore throat Cardiovascular: no chest pain, no palpitations, no lightheadedness, no shortness of breath Respiratory: no cough, no hemoptysis, no shortness of breath Gastrointestinal: no abdominal pain, no nausea, no vomiting, no diarrhea, no constipation Genitourinary Female: no dysuria, no urinary frequency Rectal: no pain, no bleeding Musculoskeletal: no neck stiffness, no neck pain Integumentary: no rash, no pruritis Neurological: weakness (RLE), no headaches Endocrine: no cold intolerance, no heat intolerance Hematologic/Lymphatic: no easy bruising, no easy bleeding Allergic/Immunologic: no urticaria, no wheezing Physical Examination Vital Signs Last Vital Signs Temp 98.2 F 05/06/19 09:17 Pulse 90 05/06/19 10:24 Resp 18 05/06/19 09:17 BP 100/82 05/06/19 09:17 Pulse Ox 92 05/06/19 09:17 General appearance: no acute distress HEENT: Positive: EOMI, Normocephaly, Mucus Membranes Moist Neck: Positive: neck supple, trachea midline Cardiac: Positive: Reg Rate and Rhythm, S1/S2 Lungs: Positive: clear to auscultation Neuro: Positive: Grossly Intact Abdomen: Positive: Soft, Active Bowel Sounds. Negative: Tender Skin: Positive: Clear. Negative: Rash Musculoskeletal: Normal Range of Motion Extremities: Present: normal. Absent: edema Results 05/06/19 05:32 05/06/19 05:32 CBC 05/06/19 Range/Units 05:32 WBC 8.6 (4.5-11.0) K/mm3 RBC 3.13 L (3.65-5.03) M/mm3 Hgb 10.4 (10.1-14.3) gm/dl Hct 31.5 (30.3-42.9) % Plt Count 396 (140-440) K/mm3 Comprehensive Metabolic Panel 05/06/19 Range/Units 05:32 Sodium 137 (137-145) mmol/L Potassium 4.5 D (3.6-5.0) mmol/L Chloride 99.3 (98-107) mmol/L Carbon Dioxide 24 (22-30) mmol/L BUN 9 (7-17) mg/dL Creatinine 0.4 L (0.7-1.2) mg/dL Glucose 116 H (65-100) mg/dL Calcium 8.2 L (8.4-10.2) mg/dL - Imaging and Cardiology EKG: image reviewed EKG interpretations - Telemetry EKG Rhythm: Sinus Rhythm - EKG Sinus rhythms and dysrhythmias: sinus rhythm Ventricular dysrhythmias: ventricular premature com Chamber hypertrophy or enlargement: left ventricular hypertro Assessment and Plan Electrolyte abnormalities are being corrected. Obtain echocardiogram. Initiate low-dose beta sara if BP permits. She will benefit from a Lexiscan stress test with nuclear imaging. This may be performed as an inpatient or outpatient depending on if she is still here by Wednesday. - Patient Problems (1) NSVT (nonsustained ventricular tachycardia) Current Visit: Yes Status: Acute (2) Right leg weakness Current Visit: Yes Status: Acute (3) Hypomagnesemia Current Visit: Yes Status: Acute (4) Hypokalemia Current Visit: Yes Status: Acute
[2019-05-06] MEDS: METOPROLOL TARTRATE 25 MG TAB PO SCH ×2 (14:09→21:24)
--- NOTE | 2019-05-06 17:02 | Progress Note ---
Assessment and Plan - Patient Problems (1) UTI (urinary tract infection) Current Visit: Yes Status: Acute Plan to address problem: She currently being treated for UTI continue Levaquin patient asymptomatic at present. (2) Hypokalemia Current Visit: Yes Status: Acute (3) NSVT (nonsustained ventricular tachycardia) Current Visit: Yes Status: Acute Plan to address problem: Most likely secondary to electrolyte abnormalities. Currently optimizing electrolytes follow chemistry data and treat accordingly. Temazepam has been corrected to poor 4.5 today (4) Acute renal insufficiency Current Visit: No Status: Acute History Interval history: Patient will course was complicated by an additional 5 beat run of V. V. tach. Patient currently asymptomatic. Cardiology following. Hospitalist Physical - Constitutional Vitals: Temp Pulse Resp BP Pulse Ox 98.2 F 90 18 100/82 92 05/06/19 09:17 05/06/19 10:24 05/06/19 09:17 05/06/19 09:17 05/06/19 09:17 General appearance: Present: no acute distress - EENT Eyes: Present: PERRL, EOM intact ENT: hearing intact, clear oral mucosa, dentition normal - Neck Neck: Present: supple, normal ROM - Respiratory Respiratory: negative: CTA, diminished, rales, rhonchi, wheezing, other - Cardiovascular Rhythm: irregularly irregular - Extremities Extremity abnormal: edema Peripheral Pulses: within normal limits - Abdominal General gastrointestinal: deferred, soft, non-tender, tender - Integumentary Integumentary: Present: clear, warm, dry - Psychiatric Psychiatric: appropriate mood/affect, intact judgment & insight - Neurologic Neurologic: moves all extremities Results - Labs CBC & Chem 7: 05/06/19 05:32 05/06/19 05:32 Labs: Laboratory Last Values WBC 8.6 K/mm3 (4.5-11.0) 05/06/19 05:32 RBC 3.13 M/mm3 (3.65-5.03) L 05/06/19 05:32 Hgb 10.4 gm/dl (10.1-14.3) 05/06/19 05:32 Hct 31.5 % (30.3-42.9) 05/06/19 05:32 MCV 101 fl (79-97) H 05/06/19 05:32 MCH 33 pg (28-32) H 05/06/19 05:32 MCHC 33 % (30-34) 05/06/19 05:32 RDW 13.8 % (13.2-15.2) 05/06/19 05:32 Plt Count 396 K/mm3 (140-440) 05/06/19 05:32 Lymph % (Auto) 10.5 % (13.4-35.0) L 05/04/19 05:18 [place] % (Auto) 13.3 % (0.0-7.3) H 05/04/19 05:18 Eos % (Auto) 0.1 % (0.0-4.3) 05/04/19 05:18 Baso % (Auto) 0.4 % (0.0-1.8) 05/04/19 05:18 Lymph # 1.3 K/mm3 (1.2-5.4) 05/04/19 05:18 [place] # 1.7 K/mm3 (0.0-0.8) H 05/04/19 05:18 Eos # 0.0 K/mm3 (0.0-0.4) 05/04/19 05:18 Baso # 0.0 K/mm3 (0.0-0.1) 05/04/19 05:18 Seg Neutrophils % 75.7 % (40.0-70.0) H 05/04/19 05:18 Seg Neutrophils # 9.6 K/mm3 (1.8-7.7) H 05/04/19 05:18 PT 14.7 Sec. (12.2-14.9) 05/04/19 06:39 INR 1.16 (0.87-1.13) H 05/04/19 06:39 APTT 29.4 Sec. (24.2-36.6) 05/04/19 06:39 Sodium 137 mmol/L (137-145) 05/06/19 05:32 Potassium 4.5 mmol/L (3.6-5.0) D 05/06/19 05:32 Chloride 99.3 mmol/L (98-107) 05/06/19 05:32 Carbon Dioxide 24 mmol/L (22-30) 05/06/19 05:32 Anion Gap 18 mmol/L 05/06/19 05:32 BUN 9 mg/dL (7-17) 05/06/19 05:32 Creatinine 0.4 mg/dL (0.7-1.2) L 05/06/19 05:32 Estimated GFR > 60 ml/min 05/06/19 05:32 BUN/Creatinine Ratio 23 % 05/06/19 05:32 Glucose 116 mg/dL (65-100) H 05/06/19 05:32 Calcium 8.2 mg/dL (8.4-10.2) L 05/06/19 05:32 Magnesium 1.80 mg/dL (1.7-2.3) 05/06/19 05:32 Total Bilirubin 3.60 mg/dL (0.1-1.2) H 05/04/19 05:18 AST 50 units/L (5-40) H 05/04/19 05:18 ALT 17 units/L (7-56) 05/04/19 05:18 Alkaline Phosphatase 69 units/L (35-129) 05/04/19 05:18 Ammonia 39.0 umol/L (25-60) 05/05/19 07:22 Total Creatine Kinase 55 units/L (30-135) 05/04/19 06:39 CK-MB (CK-2) 1.2 ng/mL (0.0-4.0) 05/04/19 06:39 CK-MB (CK-2) Rel Index 2.1 (0-4) 05/04/19 06:39 Troponin T < 0.010 ng/mL (0.00-0.029) 05/04/19 06:39 Total Protein 5.4 g/dL (6.3-8.2) L 05/04/19 05:18 Albumin 3.1 g/dL (3.9-5) L 05/04/19 05:18 Albumin/Globulin Ratio 1.3 % 05/04/19 05:18 Lipase 4 units/L (13-60) L 05/04/19 06:59 Vitamin B12 634.6 pg/mL (211-911) 05/04/19 06:59 TSH 0.397 mlU/mL (0.270-4.200) 05/05/19 07:22 Urine Color [place] (Yellow) 05/04/19 17:15 Urine Turbidity Slightly-cloudy (Clear) 05/04/19 17:15 Urine pH 6.0 (5.0-7.0) 05/04/19 17:15 Ur Specific [place] 1.025 (1.003-1.030) 05/04/19 17:15 Urine Protein 30 mg/dl mg/dL (Negative) 05/04/19 17:15 Urine Glucose (UA) Neg mg/dL (Negative) 05/04/19 17:15 Urine Ketones Tr mg/dL (Negative) 05/04/19 17:15 Urine Blood Sm (Negative) 05/04/19 17:15 Urine Nitrite Neg (Negative) 05/04/19 17:15 Urine Bilirubin Sm (Negative) 05/04/19 17:15 Urine Ictotest Negative (Negative) 05/04/19 17:15 Urine Urobilinogen 4.0 mg/dL (<2.0) 05/04/19 17:15 Ur Leukocyte Esterase Mod (Negative) 05/04/19 17:15 Urine WBC (Auto) > 182.0 /HPF (0.0-6.0) H 05/04/19 17:15 Urine RBC (Auto) 3.0 /HPF (0.0-6.0) 05/04/19 17:15 U Epithel Cells (Auto) 2.0 /HPF (0-13.0) 05/04/19 17:15 Urine Bacteria (Auto) 2+ /HPF (Negative) 05/04/19 17:15 Urine Mucus Few /HPF 05/04/19 17:15 Urine Opiates Screen Presumptive negative 05/04/19 17:15 Urine Methadone Screen Presumptive negative 05/04/19 17:15 Ur Barbiturates Screen Presumptive negative 05/04/19 17:15 Ur Phencyclidine Scrn Presumptive negative 05/04/19 17:15 Ur Amphetamines Screen Presumptive negative 05/04/19 17:15 U Benzodiazepines Scrn Presumptive negative 05/04/19 17:15 Urine Cocaine Screen Presumptive negative 05/04/19 17:15 U Marijuana (THC) Screen Presumptive positive 05/04/19 17:15 Drugs of Abuse Note Disclamer 05/04/19 17:15 Active Medications - Current Medications Current Medications: Generic Name Dose Route Start Last Admin Trade Name Freq PRN Reason Stop Dose Admin Acetaminophen 325 mg 05/05/19 16:25 05/05/19 23:51 Tylenol PO 325 mg Q6H PRN Administration Non Cardiac Pain or Temp>100.5 Albuterol 2.5 mg 05/05/19 16:32 Proventil IH Q4HRT PRN Wheezing Haloperidol Lactate 5 mg 05/04/19 13:16 Haldol IV Q1H PRN Unrespon. to mult. doses BZD's Ceftriaxone Sodium 1 gm in 50 mls @ 100 mls/hr 05/05/19 17:00 05/06/19 09:52 Rocephin/Ns 1 Gm/50 Ml IV 100 mls/hr Q24HR BRIELLE Administration Protocol Levothyroxine Sodium 25 mcg 05/06/19 06:00 05/06/19 06:00 Synthroid PO 25 mcg DAILY@0600 BRIELLE Administration Lorazepam 2 mg 05/04/19 13:16 Ativan IV Q1H PRN CIWA-Ar 8-15 Lorazepam 4 mg 05/04/19 13:16 Ativan IV Q1H PRN CIWA-Ar 16-25 Metoclopramide HCl 10 mg 05/04/19 12:20 Reglan IV Q8H PRN Nausea And Vomiting Metoprolol Tartrate 12.5 mg 05/06/19 12:00 05/06/19 14:09 Metoprolol PO 12.5 mg BID BRIELLE Administration Ondansetron HCl 4 mg 05/04/19 12:20 Zofran IV Q4H PRN N/V unrelieved by Reglan Thiamine HCl 100 mg 05/04/19 14:00 05/06/19 09:51 Vitamin B-1 PO 100 mg QDAY BRIELLE Administration Nutrition/Malnutrition Assess - Dietary Evaluation Nutrition/Malnutrition Findings: Nutrition Notes Start: 05/04/19 12:51 Freq: Status: Active Protocol: Document 05/05/19 14:48 RM (Rec: 05/05/19 15:03 RM [email or web address]) Nutrition Notes Initial or Follow up Brief Note Other Pertinent Diagnosis Hypothyroidism, ETOH cirrhosis , hypokalemia, bilat hand pain Current Diet GI soft Subjective/Other Information Kitchen staff called for recommendation of substitute for Ensure Clear d/t being out of it. Storage Facility Housekeeper spoke w/pt and pt agreed to Glucerna [place] substitute. Nutrition Intervention Follow-Up By: 05/09/19 Additional Comments Follow for PO and ONS intakes
[2019-05-07] MEDS: LEVOTHYROXINE 25 MCG TAB PO SCH (04:59)
[2019-05-07 09:14] LABS: Hematocrit 31.3 % (30.3-42.9); Hemoglobin 10.5 gm/dl (10.1-14.3); Mean Corpuscular HGB Conc 34 % (30-34); Mean Corpuscular Volume 100 fl (79-97); Platelet Count 555 K/mm3 (140-440); Red Blood Count 3.13 M/mm3 (3.65-5.03)
[2019-05-07 09:30] LABS: BUN/Creatinine Ratio 18; Blood Urea Nitrogen 7 mg/dL (7-17); Calcium 8.5 mg/dL (8.4-10.2); Hemolysis Index 8
[2019-05-07] MEDS: ACETAMINOPHEN 325 MG TAB PO PRN (09:46)
[2019-05-07] MEDS: cefTRIAXone/NS 1 GM/50 ML 1 GM/50 ML BAG IV SCH (09:47)
[2019-05-07] MEDS: THIAMINE 100 MG TAB PO SCH (09:47)
[2019-05-07] MEDS: METOPROLOL TARTRATE 25 MG TAB PO SCH (09:47)
--- NOTE | 2019-05-07 10:44 | Progress Note ---
Assessment and Plan Cancel stress testing. I have discussed with her about the need for coronary angiography. This will be scheduled for the morning. - Patient Problems (1) NSVT (nonsustained ventricular tachycardia) Current Visit: Yes Status: Acute (2) Cardiomyopathy Current Visit: Yes Status: Acute (3) Right leg weakness Current Visit: Yes Status: Acute (4) Hypomagnesemia Current Visit: Yes Status: Acute (5) Hypokalemia Current Visit: Yes Status: Acute Subjective Date of service: 05/07/19 Principal diagnosis: NSVT, R leg weakness, CMP, Diarrhea Interval history: She complains of chronic diarrhea which has been active lately. Streaks of watery stools were on the floor as she ran to the bathroom this morning. We reviewed her echo findings which showed moderate to severe LV systolic dysfunction. She is not aware of this from the past. Objective Vital Signs Temp Pulse Resp BP Pulse Ox 05/07/19 05:02 98.8 F 05/07/19 05:00 89 18 117/71 98 05/07/19 04:00 89 05/06/19 23:50 97 H 05/06/19 23:49 99.7 F H 05/06/19 23:47 96 H 18 126/74 96 05/06/19 21:24 100 H 118/71 05/06/19 20:17 99.1 F 05/06/19 20:16 100 H 20 118/71 97 05/06/19 20:00 96 H 05/06/19 17:05 98.3 F 93 H 18 119/67 95 - Physical Examination General: No Apparent Distress HEENT: Positive: EOMI, Normocephaly, Mucus Membranes Moist Neck: Positive: neck supple, trachea midline Cardiac: Positive: Reg Rate and Rhythm, S1/S2 Lungs: Positive: clear to auscultation Neuro: Positive: Grossly Intact Abdomen: Positive: Soft, Active Bowel Sounds. Negative: Tender Skin: Positive: Clear. Negative: Rash Musculoskeletal: Normal Range of Motion Extremities: Present: normal. Absent: edema - Labs and Meds CBC 05/07/19 Range/Units 08:16 WBC 12.6 H (4.5-11.0) K/mm3 RBC 3.13 L (3.65-5.03) M/mm3 Hgb 10.5 (10.1-14.3) gm/dl Hct 31.3 (30.3-42.9) % Plt Count 555 H (140-440) K/mm3 Comprehensive Metabolic Panel 05/07/19 Range/Units 08:16 Sodium 135 L (137-145) mmol/L Potassium 4.6 (3.6-5.0) mmol/L Chloride 97.9 L (98-107) mmol/L Carbon Dioxide 23 (22-30) mmol/L BUN 7 (7-17) mg/dL Creatinine 0.4 L (0.7-1.2) mg/dL Glucose 86 (65-100) mg/dL Calcium 8.5 (8.4-10.2) mg/dL - Imaging and Cardiology EKG: image reviewed - Telemetry EKG Rhythm: Sinus Rhythm - EKG Sinus rhythms and dysrhythmias: sinus rhythm Ventricular dysrhythmias: ventricular premature com Chamber hypertrophy or enlargement: left ventricular hypertro
[2019-05-07] MEDS ORDERED: SODIUM CHLORIDE 0.9% 500 ML 500 ML IV SCH (11:00)
[2019-05-07] MEDS ORDERED: LOPERAMIDE 2 MG CAP PO PRN (14:20)
[2019-05-07] MEDS ORDERED: DIPHENOXYLATE/ATROPINE TAB PO PRN (15:11)
--- NOTE | 2019-05-07 15:11 | Progress Note ---
Assessment and Plan - Patient Problems (1) UTI (urinary tract infection) Current Visit: Yes Status: Acute Plan to address problem: She currently being treated for UTI continue Levaquin patient asymptomatic at present. Continue antibiotics. No dysuria. (2) Hypokalemia Current Visit: Yes Status: Acute Plan to address problem: Has replaced by mouth. We'll recheck a.m. (3) NSVT (nonsustained ventricular tachycardia) Current Visit: Yes Status: Acute Plan to address problem: Seen to respond to correction of potassium. Patient has cardiac catheterization planned for a.m. (4) Acute renal insufficiency Current Visit: No Status: Acute Plan to address problem: Has corrected resolved. (5) Diarrhea Current Visit: Yes Status: Acute Plan to address problem: Began prior to hospital stay no foul-smelling. Add Lomotil. History Interval history: Patient complains today of loose stool. Otherwise no new concerns. Patient had only 2 beats of nonsustained V. tach. Has improved significantly with correction of potassium. His may be etiology. Patient has further workup planned in the a.m. Patient understands plan and agrees Hospitalist Physical - Constitutional Vitals: Temp Pulse Resp BP Pulse Ox 98.8 F 89 18 117/71 98 05/07/19 05:02 05/07/19 10:58 05/07/19 05:00 05/07/19 05:00 05/07/19 05:00 General appearance: Present: no acute distress - EENT Eyes: Present: PERRL, EOM intact ENT: hearing intact, clear oral mucosa, dentition normal - Neck Neck: Present: supple, normal ROM - Respiratory Respiratory: bilateral: CTA - Cardiovascular Rhythm: regular - Extremities Extremities: no ischemia, pulses intact, pulses symmetrical, No edema Peripheral Pulses: within normal limits - Abdominal General gastrointestinal: soft, non-tender, non-distended, normal bowel sounds - Integumentary Integumentary: Present: clear, warm, dry - Psychiatric Psychiatric: appropriate mood/affect, intact judgment & insight - Neurologic Neurologic: CNII-XII intact, moves all extremities Results - Labs CBC & Chem 7: 05/07/19 08:16 05/07/19 08:16 Labs: Laboratory Last Values WBC 12.6 K/mm3 (4.5-11.0) H 05/07/19 08:16 RBC 3.13 M/mm3 (3.65-5.03) L 05/07/19 08:16 Hgb 10.5 gm/dl (10.1-14.3) 05/07/19 08:16 Hct 31.3 % (30.3-42.9) 05/07/19 08:16 MCV 100 fl (79-97) H 05/07/19 08:16 MCH 34 pg (28-32) H 05/07/19 08:16 MCHC 34 % (30-34) 05/07/19 08:16 RDW 14.0 % (13.2-15.2) 05/07/19 08:16 Plt Count 555 K/mm3 (140-440) H 05/07/19 08:16 Lymph % (Auto) 10.5 % (13.4-35.0) L 05/04/19 05:18 [place] % (Auto) 13.3 % (0.0-7.3) H 05/04/19 05:18 Eos % (Auto) 0.1 % (0.0-4.3) 05/04/19 05:18 Baso % (Auto) 0.4 % (0.0-1.8) 05/04/19 05:18 Lymph # 1.3 K/mm3 (1.2-5.4) 05/04/19 05:18 [place] # 1.7 K/mm3 (0.0-0.8) H 05/04/19 05:18 Eos # 0.0 K/mm3 (0.0-0.4) 05/04/19 05:18 Baso # 0.0 K/mm3 (0.0-0.1) 05/04/19 05:18 Seg Neutrophils % 75.7 % (40.0-70.0) H 05/04/19 05:18 Seg Neutrophils # 9.6 K/mm3 (1.8-7.7) H 05/04/19 05:18 PT 14.7 Sec. (12.2-14.9) 05/04/19 06:39 INR 1.16 (0.87-1.13) H 05/04/19 06:39 APTT 29.4 Sec. (24.2-36.6) 05/04/19 06:39 Sodium 135 mmol/L (137-145) L 05/07/19 08:16 Potassium 4.6 mmol/L (3.6-5.0) 05/07/19 08:16 Chloride 97.9 mmol/L (98-107) L 05/07/19 08:16 Carbon Dioxide 23 mmol/L (22-30) 05/07/19 08:16 Anion Gap 19 mmol/L 05/07/19 08:16 BUN 7 mg/dL (7-17) 05/07/19 08:16 Creatinine 0.4 mg/dL (0.7-1.2) L 05/07/19 08:16 Estimated GFR > 60 ml/min 05/07/19 08:16 BUN/Creatinine Ratio 18 % 05/07/19 08:16 Glucose 86 mg/dL (65-100) 05/07/19 08:16 Calcium 8.5 mg/dL (8.4-10.2) 05/07/19 08:16 Magnesium 1.60 mg/dL (1.7-2.3) L 05/07/19 08:16 Total Bilirubin 3.60 mg/dL (0.1-1.2) H 05/04/19 05:18 AST 50 units/L (5-40) H 05/04/19 05:18 ALT 17 units/L (7-56) 05/04/19 05:18 Alkaline Phosphatase 69 units/L (35-129) 05/04/19 05:18 Ammonia 39.0 umol/L (25-60) 05/05/19 07:22 Total Creatine Kinase 55 units/L (30-135) 05/04/19 06:39 CK-MB (CK-2) 1.2 ng/mL (0.0-4.0) 05/04/19 06:39 CK-MB (CK-2) Rel Index 2.1 (0-4) 05/04/19 06:39 Troponin T < 0.010 ng/mL (0.00-0.029) 05/04/19 06:39 Total Protein 5.4 g/dL (6.3-8.2) L 05/04/19 05:18 Albumin 3.1 g/dL (3.9-5) L 05/04/19 05:18 Albumin/Globulin Ratio 1.3 % 05/04/19 05:18 Lipase 4 units/L (13-60) L 05/04/19 06:59 Vitamin B12 634.6 pg/mL (211-911) 05/04/19 06:59 TSH 0.397 mlU/mL (0.270-4.200) 05/05/19 07:22 Urine Color [place] (Yellow) 05/04/19 17:15 Urine Turbidity Slightly-cloudy (Clear) 05/04/19 17:15 Urine pH 6.0 (5.0-7.0) 05/04/19 17:15 Ur Specific [place] 1.025 (1.003-1.030) 05/04/19 17:15 Urine Protein 30 mg/dl mg/dL (Negative) 05/04/19 17:15 Urine Glucose (UA) Neg mg/dL (Negative) 05/04/19 17:15 Urine Ketones Tr mg/dL (Negative) 05/04/19 17:15 Urine Blood Sm (Negative) 05/04/19 17:15 Urine Nitrite Neg (Negative) 05/04/19 17:15 Urine Bilirubin Sm (Negative) 05/04/19 17:15 Urine Ictotest Negative (Negative) 05/04/19 17:15 Urine Urobilinogen 4.0 mg/dL (<2.0) 05/04/19 17:15 Ur Leukocyte Esterase Mod (Negative) 05/04/19 17:15 Urine WBC (Auto) > 182.0 /HPF (0.0-6.0) H 05/04/19 17:15 Urine RBC (Auto) 3.0 /HPF (0.0-6.0) 05/04/19 17:15 U Epithel Cells (Auto) 2.0 /HPF (0-13.0) 05/04/19 17:15 Urine Bacteria (Auto) 2+ /HPF (Negative) 05/04/19 17:15 Urine Mucus Few /HPF 05/04/19 17:15 Urine Opiates Screen Presumptive negative 05/04/19 17:15 Urine Methadone Screen Presumptive negative 05/04/19 17:15 Ur Barbiturates Screen Presumptive negative 05/04/19 17:15 Ur Phencyclidine Scrn Presumptive negative 05/04/19 17:15 Ur Amphetamines Screen Presumptive negative 05/04/19 17:15 U Benzodiazepines Scrn Presumptive negative 05/04/19 17:15 Urine Cocaine Screen Presumptive negative 05/04/19 17:15 U Marijuana (THC) Screen Presumptive positive 05/04/19 17:15 Drugs of Abuse Note Disclamer 05/04/19 17:15 Active Medications - Current Medications Current Medications: Generic Name Dose Route Start Last Admin Trade Name Freq PRN Reason Stop Dose Admin Acetaminophen 325 mg 05/05/19 16:25 05/07/19 09:46 Tylenol PO 325 mg Q6H PRN Administration Non Cardiac Pain or Temp>100.5 Albuterol 2.5 mg 05/05/19 16:32 Proventil IH Q4HRT PRN Wheezing Carvedilol 3.125 mg 05/07/19 22:00 Coreg PO BID BRIELLE Haloperidol Lactate 5 mg 05/04/19 13:16 Haldol IV Q1H PRN Unrespon. to mult. doses BZD's Ceftriaxone Sodium 1 gm in 50 mls @ 100 mls/hr 05/05/19 17:00 05/07/19 09:47 Rocephin/Ns 1 Gm/50 Ml IV 100 mls/hr Q24HR BRIELLE Administration Protocol Sodium Chloride 500 mls @ 50 mls/hr 05/07/19 11:00 Nacl 0.9% 500 Ml IV 05/07/19 20:59 DIRECT BRIELLE Levothyroxine Sodium 25 mcg 05/06/19 06:00 05/07/19 04:59 Synthroid PO 25 mcg DAILY@0600 [facility] Administration Lisinopril 2.5 mg 05/08/19 10:00 Zestril PO QDAY BRIELLE Loperamide HCl 2 mg 05/07/19 14:20 Imodium PO Q2H PRN Diarrhea Lorazepam 2 mg 05/04/19 13:16 Ativan IV Q1H PRN CIWA-Ar 8-15 Lorazepam 4 mg 05/04/19 13:16 Ativan IV Q1H PRN CIWA-Ar 16-25 Metoclopramide HCl 10 mg 05/04/19 12:20 Reglan IV Q8H PRN Nausea And Vomiting Ondansetron HCl 4 mg 05/04/19 12:20 Zofran IV Q4H PRN N/V unrelieved by Reglan Thiamine HCl 100 mg 05/04/19 14:00 05/07/19 09:47 Vitamin B-1 PO 100 mg QDAY BRIELLE Administration Nutrition/Malnutrition Assess - Dietary Evaluation Nutrition/Malnutrition Findings: Nutrition Notes Start: 05/04/19 12 :51 Freq: Status: Active Protocol: Document 05/05/19 14:48 RM (Rec: 05/05/19 15:03 RM [id number]) Nutrition Notes Initial or Follow up Brief Note Other Pertinent Diagnosis Hypothyroidism, ETOH cirrhosis , hypokalemia, bilat hand pain Current Diet GI soft Subjective/Other Information Kitchen staff called for recommendation of substitute for Ensure Clear d/t being out of it. Reinforcing Bar Setter spoke w/pt and pt agreed to Glucerna [place] substitute. Nutrition Intervention Follow-Up By: 05/09/19 Additional Comments Follow for PO and ONS intakes
[2019-05-07] MEDS: carvediloL 3.125 MG TAB PO SCH (22:20)
[2019-05-08] MEDS: LEVOTHYROXINE 25 MCG TAB PO SCH (05:58)
[2019-05-08] MEDS ORDERED: HEPARIN/NS 5000 UNIT/500ML 1,000 ML IR ONE (08:59)
[2019-05-08] MEDS: VERAPAMIL 5 MG/2 ML INJ ONE ×4 (09:00→09:44)
[2019-05-08] MEDS ORDERED: SODIUM CHLORIDE 0.9% 500 ML 500 ML ONE (09:13)
[2019-05-08] MEDS: fentaNYL 100 MCG/2 ML INJ ONE ×2 (09:32→09:39)
[2019-05-08] MEDS: MIDAZOLAM 2 MG/2 ML INJ ONE ×2 (09:32→09:39)
[2019-05-08] MEDS: LIDOCAINE (2%) 20 MG/1 ML VIAL 20 ML MDV INFILTRATI ONE ×2 (09:33→09:43)
[2019-05-08] MEDS: HEPARIN 10,000 UNITS/10 ML VIAL ONE ×2 (09:34→09:44)
[2019-05-08 09:41] LABS: Hematocrit 30.3 % (30.3-42.9); Hemoglobin 10.1 gm/dl (10.1-14.3); Mean Corpuscular HGB Conc 34 % (30-34); Mean Corpuscular Volume 100 fl (79-97); Platelet Count 517 K/mm3 (140-440); Red Blood Count 3.03 M/mm3 (3.65-5.03); Red Cell Distribution Width 13.6 % (13.2-15.2)
[2019-05-08 09:52] LABS: INR 0.99 (0.87-1.13)
[2019-05-08 10:10] LABS: BUN/Creatinine Ratio 12; Blood Urea Nitrogen 6 mg/dL (7-17); Calcium 8.7 mg/dL (8.4-10.2); Hemolysis Index 0
--- NOTE | 2019-05-08 10:39 | Cardiac Catherization Report ---
INDICATION FOR PROCEDURE: The patient is a 63-year-old -[place] female who was admitted with altered mental status and was noted to have severe LV dysfunction during evaluation with an echocardiogram. Hence scheduled for cardiac catheterization for definitive diagnosis and treatment. The patient is aware of the procedure, potential complications and alternatives of therapy available. The patient at the time of catheterization is alert, oriented x 3 and able to understand the procedure and explanations given to her. DESCRIPTION OF PROCEDURE: The patient was brought to the catheterization laboratory in a fasting condition. The patient was evaluated for moderate sedation, was followed and found to be appropriate candidate for moderate sedation and received IV Versed and fentanyl. Subsequently, she was prepared in a standard fashion. Sterile drapes were applied. The right wrist area and forearm are thoroughly cleansed with chlorhexidine solution. Local anesthesia was given in the right wrist area, right radial artery puncture was made using 21-gauge arterial puncture needle. Subsequently, a 5-[place]an slender sheath was introduced. A 5-[place]an multipurpose catheter was used to obtain the angiogram of the left ventricle done in LEVINE projection using hand injection followed by angiograms of the left coronary artery and right coronary artery in multiple views. At the end of the procedure, catheter and sheath were removed. Good hemostasis was achieved with pressure bandage. No untoward complications were noted. The patient was transferred to the room in stable condition. Throughout the procedure, the patient was monitored with pulse oximetry, EKG monitoring and hemodynamic monitoring. The patient's sedation started at 9:39 a.m. and ended at 9:50 a.m. At the end of the procedure, the patient is communicating normally and breathing normally, moving all the extremities. Following findings were noted. HEMODYNAMICS: 1. Aortic pressure 124/80, left ventricular pressure 126/19. No gradient across the aortic valve. Estimated ejection fraction 20-25%. 2. Left ventriculogram done in LEVINE projection shows moderately dilated left ventricle with severe diffuse hypokinesis, ejection fraction 20-25%. Mitral regurgitation could not be evaluated because of limited amount of dye injected. 3. Left coronary artery arises normally from left coronary cusp. Left main without significant disease. Smooth and normal. LAD and its branches show minimal irregularities. 4. Circumflex artery and its branch are angiographically smooth and normal. 5. Right coronary artery dominant vessel arises normally from right coronary cusp. Angiographically smooth and normal. FINAL IMPRESSION: 1. Moderately dilated left ventricle with severe diffuse hypokinesis, ejection fraction 20-25%. 2. Increased end-diastolic and end-systolic volumes noted. 3. Essentially normal coronary anatomy with minimal irregularities of the LAD. No untoward complications were noted. The patient was transferred to the room in stable condition. The patient will be continued on medical therapy and risk factor modification. Findings were explained to the patient. JOB# [id number] KATERYNA/MATEUS
[2019-05-08] MEDS: LISINOPRIL 5 MG TAB PO SCH (11:11)
[2019-05-08] MEDS: THIAMINE 100 MG TAB PO SCH (11:11)
[2019-05-08] MEDS: cefTRIAXone/NS 1 GM/50 ML 1 GM/50 ML BAG IV SCH (11:11)
[2019-05-08] MEDS: carvediloL 3.125 MG TAB PO SCH ×2 (11:12→21:58)
--- NOTE | 2019-05-08 14:08 | Progress Note ---
Assessment and Plan S/p [facility] this AM which showed normal coronaries, EF 20%. Suspect ETOH abuse is primary etiology of NICMP. Cessation of ETOH and marijuana strongly encouraged. Pt verbalizes understanding. Cardiac defibrillator recommended in setting of CMP and NSVT. Pt is agreeable to LifeVest at this time and we will plan to readdress AICD candidacy as OP. LifeVest ordered. Cont coreg and lisinopril and titrate as tolerated. Replete lytes. Currently stable cardiac status. Pt may discharge from cardiology standpoint pending LifeVest placement. Follow up in our [place] office with Dr. Arthur on 05/16/2019 @ 1:00PM. The patient has been seen in conjunction with Dr. Stark who agrees with the assessment and plan of care. - Patient Problems (1) Nonischemic cardiomyopathy Current Visit: Yes Status: Chronic (2) Normal coronary arteries Current Visit: Yes Status: Chronic (3) NSVT (nonsustained ventricular tachycardia) Current Visit: Yes Status: Acute (4) Hypokalemia Current Visit: Yes Status: Acute (5) Hypomagnesemia Current Visit: Yes Status: Acute (6) Alcoholic cirrhosis Current Visit: Yes Status: Chronic (7) History of alcohol abuse Current Visit: Yes Status: Chronic (8) Marijuana use Current Visit: Yes Status: Chronic (9) UTI (urinary tract infection) Current Visit: Yes Status: Acute Subjective Date of service: 05/08/19 Principal diagnosis: NSVT, R leg weakness, CMP, Diarrhea Interval history: pt resting in bed, no current complaints. seen s/p [facility] this AM. in SR on tele with 3-6 beat runs NSVT overnight, pt asymptomatic. Objective Last Vital Signs Temp 97.7 F 05/08/19 10:11 Pulse 89 05/08/19 13:27 Resp 18 05/08/19 13:27 BP 128/65 05/08/19 13:27 Pulse Ox 98 05/08/19 13:00 - Physical Examination General: No Apparent Distress HEENT: Positive: EOMI, Normocephaly, Mucus Membranes Moist Neck: Positive: neck supple, trachea midline Cardiac: Positive: Reg Rate and Rhythm, S1/S2 Lungs: Positive: Decreased Breath Sounds Neuro: Positive: Grossly Intact Abdomen: Positive: Soft, Active Bowel Sounds. Negative: Tender Skin: Positive: Clear. Negative: Rash Musculoskeletal: Normal Range of Motion Extremities: Present: normal. Absent: edema - Labs and Meds Coagulation 05/08/19 Range/Units 08:23 PT 13.0 (12.2-14.9) Sec. INR 0.99 (0.87-1.13) CBC 05/08/19 Range/Units 08:23 WBC 10.1 (4.5-11.0) K/mm3 RBC 3.03 L (3.65-5.03) M/mm3 Hgb 10.1 (10.1-14.3) gm/dl Hct 30.3 (30.3-42.9) % Plt Count 517 H (140-440) K/mm3 Comprehensive Metabolic Panel 05/08/19 Range/Units 08:23 Sodium 141 (137-145) mmol/L Potassium 5.0 (3.6-5.0) mmol/L Chloride 103.1 (98-107) mmol/L Carbon Dioxide 25 (22-30) mmol/L BUN 6 L (7-17) mg/dL Creatinine 0.5 L (0.7-1.2) mg/dL Glucose 73 (65-100) mg/dL Calcium 8.7 (8.4-10.2) mg/dL - Imaging and Cardiology EKG: image reviewed - EKG Sinus rhythms and dysrhythmias: sinus rhythm Ventricular dysrhythmias: ventricular premature com Chamber hypertrophy or enlargement: left ventricular hypertro
[2019-05-08] MEDS ORDERED: MAGNESIUM SULFATE 2 GM/50 ML BAG IV ONE (14:09)
[2019-05-08] MEDS: ACETAMINOPHEN 325 MG TAB PO PRN ×2 (15:30→21:58)
--- NOTE | 2019-05-08 19:14 | Progress Note ---
Assessment and Plan - Patient Problems (1) UTI (urinary tract infection) Current Visit: Yes Status: Acute Plan to address problem: She currently being treated for UTI continue Levaquin patient asymptomatic at present. Continue antibiotics. No dysuria. No antibiotics required at discharge. Treated in house. (2) Hypokalemia Current Visit: Yes Status: Acute Plan to address problem: Hypokalemia corrected. (3) NSVT (nonsustained ventricular tachycardia) Current Visit: Yes Status: Acute Plan to address problem: Seen to respond to correction of potassium. Further episodes since correcting potassium. (4) Acute renal insufficiency Current Visit: No Status: Acute Plan to address problem: Has corrected resolved. (5) Diarrhea Current Visit: Yes Status: Acute Plan to address problem: Began prior to hospital stay no foul-smelling. Add Lomotil. (6) Cardiomyopathy Current Visit: Yes Status: Acute Plan to address problem: Patient with significant cardiomyopathy left heart cath revealed ejection fraction 20%. Etiology agree most likely alcohol abuse. Did speak with patient about the cessation of alcohol Alcoholics Anonymous. Did discuss with cardiology about defibrillator. Patient agreeable with LifeVest. Will be to discharge afterlife this has been placed. Continue patient on Coreg lisinopril (7) Alcoholic cirrhosis Current Visit: Yes Status: Chronic Plan to address problem: Alcohol cessation. (8) History of alcohol abuse Current Visit: Yes Status: Chronic History Interval history: Patient status post left heart cath today. Showed normal coronaries ejection fraction 20%. Patient resting comfortably no acute distress. Hospitalist Physical - Constitutional Vitals: Temp Pulse Resp BP Pulse Ox 97.7 F 98 H 18 135/76 98 05/08/19 10:11 05/08/19 14:05 05/08/19 13:27 05/08/19 14:05 05/08/19 13:00 General appearance: Present: no acute distress - EENT Eyes: Present: PERRL, EOM intact ENT: hearing intact, clear oral mucosa, dentition normal - Neck Neck: Present: supple, normal ROM - Respiratory Respiratory: bilateral: CTA - Cardiovascular Rhythm: regular - Extremities Extremities: no ischemia, pulses intact, pulses symmetrical, No edema, normal temperature Peripheral Pulses: within normal limits - Abdominal General gastrointestinal: soft, non-tender, non-distended, hypoactive bowel sounds - Integumentary Integumentary: Present: clear, warm, dry - Psychiatric Psychiatric: appropriate mood/affect, intact judgment & insight, cooperative - Neurologic Neurologic: CNII-XII intact, moves all extremities Results - Labs CBC & Chem 7: 05/08/19 08:23 05/08/19 08:23 Labs: Laboratory Last Values WBC 10.1 K/mm3 (4.5-11.0) 05/08/19 08:23 RBC 3.03 M/mm3 (3.65-5.03) L 05/08/19 08:23 Hgb 10.1 gm/dl (10.1-14.3) 05/08/19 08:23 Hct 30.3 % (30.3-42.9) 05/08/19 08:23 MCV 100 fl (79-97) H 05/08/19 08:23 MCH 34 pg (28-32) H 05/08/19 08:23 MCHC 34 % (30-34) 05/08/19 08:23 RDW 13.6 % (13.2-15.2) 05/08/19 08:23 Plt Count 517 K/mm3 (140-440) H 05/08/19 08:23 Lymph % (Auto) 10.5 % (13.4-35.0) L 05/04/19 05:18 [place] % (Auto) 13.3 % (0.0-7.3) H 05/04/19 05:18 Eos % (Auto) 0.1 % (0.0-4.3) 05/04/19 05:18 Baso % (Auto) 0.4 % (0.0-1.8) 05/04/19 05:18 Lymph # 1.3 K/mm3 (1.2-5.4) 05/04/19 05:18 [place] # 1.7 K/mm3 (0.0-0.8) H 05/04/19 05:18 Eos # 0.0 K/mm3 (0.0-0.4) 05/04/19 05:18 Baso # 0.0 K/mm3 (0.0-0.1) 05/04/19 05:18 Seg Neutrophils % 75.7 % (40.0-70.0) H 05/04/19 05:18 Seg Neutrophils # 9.6 K/mm3 (1.8-7.7) H 05/04/19 05:18 PT 13.0 Sec. (12.2-14.9) 05/08/19 08:23 INR 0.99 (0.87-1.13) 05/08/19 08:23 APTT 29.4 Sec. (24.2-36.6) 05/04/19 06:39 Sodium 141 mmol/L (137-145) 05/08/19 08:23 Potassium 5.0 mmol/L (3.6-5.0) 05/08/19 08:23 Chloride 103.1 mmol/L (98-107) 05/08/19 08:23 Carbon Dioxide 25 mmol/L (22-30) 05/08/19 08:23 Anion Gap 18 mmol/L 05/08/19 08:23 BUN 6 mg/dL (7-17) L 05/08/19 08:23 Creatinine 0.5 mg/dL (0.7-1.2) L 05/08/19 08:23 Estimated GFR > 60 ml/min 05/08/19 08:23 BUN/Creatinine Ratio 12 % 05/08/19 08:23 Glucose 73 mg/dL (65-100) 05/08/19 08:23 Calcium 8.7 mg/dL (8.4-10.2) 05/08/19 08:23 Magnesium 1.60 mg/dL (1.7-2.3) L 05/08/19 08:23 Total Bilirubin 3.60 mg/dL (0.1-1.2) H 05/04/19 05:18 AST 50 units/L (5-40) H 05/04/19 05:18 ALT 17 units/L (7-56) 05/04/19 05:18 Alkaline Phosphatase 69 units/L (35-129) 05/04/19 05:18 Ammonia 39.0 umol/L (25-60) 05/05/19 07:22 Total Creatine Kinase 55 units/L (30-135) 05/04/19 06:39 CK-MB (CK-2) 1.2 ng/mL (0.0-4.0) 05/04/19 06:39 CK-MB (CK-2) Rel Index 2.1 (0-4) 05/04/19 06:39 Troponin T < 0.010 ng/mL (0.00-0.029) 05/04/19 06:39 Total Protein 5.4 g/dL (6.3-8.2) L 05/04/19 05:18 Albumin 3.1 g/dL (3.9-5) L 05/04/19 05:18 Albumin/Globulin Ratio 1.3 % 05/04/19 05:18 Lipase 4 units/L (13-60) L 05/04/19 06:59 Vitamin B12 634.6 pg/mL (211-911) 05/04/19 06:59 TSH 0.397 mlU/mL (0.270-4.200) 05/05/19 07:22 Urine Color [place] (Yellow) 05/04/19 17:15 Urine Turbidity Slightly-cloudy (Clear) 05/04/19 17:15 Urine pH 6.0 (5.0-7.0) 05/04/19 17:15 Ur Specific [place] 1.025 (1.003-1.030) 05/04/19 17:15 Urine Protein 30 mg/dl mg/dL (Negative) 05/04/19 17:15 Urine Glucose (UA) Neg mg/dL (Negative) 05/04/19 17:15 Urine Ketones Tr mg/dL (Negative) 05/04/19 17:15 Urine Blood Sm (Negative) 05/04/19 17:15 Urine Nitrite Neg (Negative) 05/04/19 17:15 Urine Bilirubin Sm (Negative) 05/04/19 17:15 Urine Ictotest Negative (Negative) 05/04/19 17:15 Urine Urobilinogen 4.0 mg/dL (<2.0) 05/04/19 17:15 Ur Leukocyte Esterase Mod (Negative) 05/04/19 17:15 Urine WBC (Auto) > 182.0 /HPF (0.0-6.0) H 05/04/19 17:15 Urine RBC (Auto) 3.0 /HPF (0.0-6.0) 05/04/19 17:15 U Epithel Cells (Auto) 2.0 /HPF (0-13.0) 05/04/19 17:15 Urine Bacteria (Auto) 2+ /HPF (Negative) 05/04/19 17:15 Urine Mucus Few /HPF 05/04/19 17:15 Urine Opiates Screen Presumptive negative 05/04/19 17:15 Urine Methadone Screen Presumptive negative 05/04/19 17:15 Ur Barbiturates Screen Presumptive negative 05/04/19 17:15 Ur Phencyclidine Scrn Presumptive negative 05/04/19 17:15 Ur Amphetamines Screen Presumptive negative 05/04/19 17:15 U Benzodiazepines Scrn Presumptive negative 05/04/19 17:15 Urine Cocaine Screen Presumptive negative 05/04/19 17:15 U Marijuana (THC) Screen Presumptive positive 05/04/19 17:15 Drugs of Abuse Note Disclamer 05/04/19 17:15 Active Medications - Current Medications Current Medications: Generic Name Dose Route Start Last Admin Trade Name Freq PRN Reason Stop Dose Admin Acetaminophen 325 mg 05/05/19 16:25 05/08/19 15:30 Tylenol PO 325 mg Q6H PRN Administration Non Cardiac Pain or Temp>100.5 Albuterol 2.5 mg 05/05/19 16:32 Proventil IH Q4HRT PRN Wheezing Carvedilol 3.125 mg 05/07/19 22:00 05/08/19 11:12 Coreg PO 3.125 mg BID BRIELLE Administration Diphenoxylate HCl/Atropine 1 tab 05/07/19 15:11 Lomotil PO Q6H PRN Diarrhea Haloperidol Lactate 5 mg 05/04/19 13:16 Haldol IV Q1H PRN Unrespon. to mult. doses BZD's Ceftriaxone Sodium 1 gm in 50 mls @ 100 mls/hr 05/05/19 17:00 05/08/19 11:11 Rocephin/Ns 1 Gm/50 Ml IV 05/09/19 10:29 100 mls/hr Q24HR BRIELLE Administration Protocol Levothyroxine Sodium 25 mcg 05/06/19 06:00 05/08/19 05:58 Synthroid PO 25 mcg DAILY@0600 BRIELLE Administration Lisinopril 2.5 mg 05/08/19 10:00 05/08/19 11:11 Zestril PO 2.5 mg QDAY BRIELLE Administration Loperamide HCl 2 mg 05/07/19 14:20 05/07/19 15:26 Imodium PO 2 mg Q2H PRN Administration Diarrhea Lorazepam 2 mg 05/04/19 13:16 Ativan IV Q1H PRN CIWA-Ar 8-15 Lorazepam 4 mg 05/04/19 13:16 Ativan IV Q1H PRN CIWA-Ar 16-25 Metoclopramide HCl 10 mg 05/04/19 12:20 Reglan IV Q8H PRN Nausea And Vomiting Ondansetron HCl 4 mg 05/04/19 12:20 Zofran IV Q4H PRN N/V unrelieved by Reglan Thiamine HCl 100 mg 05/04/19 14:00 05/08/19 11:11 Vitamin B-1 PO 100 mg QDAY BRIELLE Administration Nutrition/Malnutrition Assess - Dietary Evaluation Nutrition/Malnutrition Findings: Nutrition Notes Start: 05/04/19 12:51 Freq: Status: Active Protocol: Document 05/05/19 14:48 RM (Rec: 05/05/19 15:03 RM [id number]) Nutrition Notes Initial or Follow up Brief Note Other Pertinent Diagnosis Hypothyroidism, ETOH cirrhosis , hypokalemia, bilat hand pain Current Diet GI soft Subjective/Other Information Kitchen staff called for recommendation of substitute for Ensure Clear d/t being out of it. General Dentist spoke w/pt and pt agreed to Glucerna [place] substitute. Nutrition Intervention Follow-Up By: 05/09/19 Additional Comments Follow for PO and ONS intakes
[2019-05-09] MEDS: LEVOTHYROXINE 25 MCG TAB PO SCH (05:38)
[2019-05-09] MEDS: LISINOPRIL 5 MG TAB PO SCH (10:13)
[2019-05-09] MEDS: THIAMINE 100 MG TAB PO SCH (10:13)
[2019-05-09] MEDS: carvediloL 3.125 MG TAB PO SCH ×2 (10:13→21:21)
[2019-05-09] MEDS: cefTRIAXone/NS 1 GM/50 ML 1 GM/50 ML BAG IV SCH (10:14)
[2019-05-09] MEDS: ACETAMINOPHEN 325 MG TAB PO PRN (10:25)
--- NOTE | 2019-05-09 12:15 | Discharge Summary ---
Providers - Providers Date of Admission: 05/04/19 08:39 Attending physician: NEVILLE HERNANDEZ MD 05/04/19 13:12 Consult to Physician [CONS] Routine Comment: Consulting Provider: ANNA LIVINGSTON Physician Instructions: Reason For Exam: alcohol liver disease, Dr. Livingston's pt 05/05/19 16:19 Consult to Physician [CONS] Routine Comment: Consulting Provider: SHAYNA DURANT Physician Instructions: Reason For Exam: 7beat NSVT, recent syncopal episode last admission 05/08/19 11:36 Consult to Cardiac Rehabilitation [CONS] Routine Reason For Exam: Cardiac Rehab Evaluation Primary care physician: SOFTWARE DEVELOPMENT COORDINATOR Hospitalization Condition: Stable Hospital course: 1) UTI (urinary tract infection) without Any evidence of sepsis Current Visit: Yes Status: Acute Plan to address problem: She currently being treated for UTI continue Levaquin patient asymptomatic at present. Continue antibiotics. No dysuria. No antibiotics required at discharge. Treated in house. (2) Hypokalemia Current Visit: Yes Status: Acute Plan to address problem: Hypokalemia corrected. (3) NSVT (nonsustained ventricular tachycardia) Current Visit: Yes Status: Acute Plan to address problem: Seen to respond to correction of potassium. Further episodes since correcting potassium. (4) Acute renal insufficiency Current Visit: No Status: Acute Plan to address problem: Has corrected resolved. (5) Diarrhea Current Visit: Yes Status: Acute Plan to address problem: Began prior to hospital stay no foul-smelling. Add Lomotil. (6) Cardiomyopathy Current Visit: Yes Status: Acute Plan to address problem: Patient with significant cardiomyopathy left heart cath revealed ejection fraction 20%. Etiology agree most likely alcohol abuse. Did speak with patient about the cessation of alcohol Alcoholics Anonymous. Did discuss with cardiology about defibrillator. Patient agreeable with LifeVest. Will be to discharge afterlife this has been placed. Continue patient on Coreg lisinopril (7) Alcoholic cirrhosis Current Visit: Yes Status: Chronic Plan to address problem: Alcohol cessation. (8) History of alcohol abuse Current Visit: Yes Status: Chronic Disposition: DC/[place]-06 HOME UNDER HOME [facility] Exam - Constitutional Vitals: Temp Pulse Resp BP Pulse Ox 98.4 F 100 H 20 123/69 98 05/09/19 07:47 05/09/19 10:13 05/09/19 10:25 05/09/19 10:13 05/09/19 03:21 Plan Activity: advance as tolerated, fall precautions Diet: low fat, low salt Special Instructions: record daily weights, record daily BP diary Follow up with: BERNADETTE GANN MD [Staff Physician] - 7 Days (Follow up in our [place] office with Dr. Gann on 05/16/2019 @ 1:00PM. ) PRIMARY CARE, [Primary Care Provider] - 7 Days Prescriptions: carvediloL [Coreg] 3.125 mg PO BID #60 tablet Loperamide [Imodium] 2 mg PO Q2H PRN #30 capsule PRN Reason: Diarrhea Levothyroxine [Synthroid] 25 mcg PO DAILY@0600 #30 tablet Thiamine [Vitamin B-1] 100 mg PO QDAY #30 tablet Lisinopril [Zestril TAB] 2.5 mg PO QDAY #30 tablet
--- NOTE | 2019-05-09 18:51 | Progress Note ---
Assessment and Plan Assessment and plan: (1) UTI (urinary tract infection) Current Visit: Yes Status: Acute Plan to address problem: She currently being treated for UTI continue Levaquin patient asymptomatic at present. Continue antibiotics. No dysuria. No antibiotics required at discharge. Treated in house. (2) Hypokalemia Current Visit: Yes Status: Acute Plan to address problem: Hypokalemia corrected. (3) NSVT (nonsustained ventricular tachycardia) Current Visit: Yes Status: Acute Plan to address problem: Seen to respond to correction of potassium. Further episodes since correcting potassium. (4) Acute renal insufficiency Current Visit: No Status: Acute Plan to address problem: Has corrected resolved. (5) Diarrhea Current Visit: Yes Status: Acute Plan to address problem: Began prior to hospital stay no foul-smelling. Add Lomotil. (6) Cardiomyopathy Current Visit: Yes Status: Acute Plan to address problem: Patient with significant cardiomyopathy left heart cath revealed ejection fraction 20%. Etiology agree most likely alcohol abuse. Did speak with patient about the cessation of alcohol Alcoholics Anonymous. Did discuss with cardiology about defibrillator. Patient agreeable with [facility]. Will be to discharge afterlife this has been placed. Continue patient on Coreg lisinopril (7) Alcoholic cirrhosis Current Visit: Yes Status: Chronic Plan to address problem: Alcohol cessation. (8) History of alcohol abuse Current Visit: Yes Status: Chronic (9) NSVT- Asymptomatic during the incident today (10) Resistant Hypomagnesemia- Replace and recheck History Interval history: Patient seen and examined, sitting up, reports no distress, no palpitation. Hospitalist Physical - Physical exam Narrative exam: General appearance: Present: no acute distress - EENT Eyes: Present: PERRL, EOM intact ENT: hearing intact, clear oral mucosa, dentition normal - Neck Neck: Present: supple, normal ROM - Respiratory Respiratory: bilateral: CTA - Cardiovascular Rhythm: regular - Extremities Extremities: no ischemia, pulses intact, pulses symmetrical, No edema, normal te mperature Peripheral Pulses: within normal limits - Abdominal General gastrointestinal: soft, non-tender, non-distended, hypoactive bowel sounds - Integumentary Integumentary: Present: clear, warm, dry - Psychiatric Psychiatric: appropriate mood/affect, intact judgment & insight, cooperative - Neurologic Neurologic: CNII-XII intact, moves all extremities - Constitutional Vitals: Temp Pulse Resp BP Pulse Ox 98.4 F 93 H 20 123/69 98 05/09/19 07:47 05/09/19 16:00 05/09/19 11:00 05/09/19 10:13 05/09/19 11:00 General appearance: Present: no acute distress Results - Labs CBC & Chem 7: 05/08/19 08:23 05/08/19 08:23 Labs: Laboratory Last Values WBC 10.1 K/mm3 (4.5-11.0) 05/08/19 08:23 RBC 3.03 M/mm3 (3.65-5.03) L 05/08/19 08:23 Hgb 10.1 gm/dl (10.1-14.3) 05/08/19 08:23 Hct 30.3 % (30.3-42.9) 05/08/19 08:23 MCV 100 fl (79-97) H 05/08/19 08:23 MCH 34 pg (28-32) H 05/08/19 08:23 MCHC 34 % (30-34) 05/08/19 08:23 RDW 13.6 % (13.2-15.2) 05/08/19 08:23 Plt Count 517 K/mm3 (140-440) H 05/08/19 08:23 Lymph % (Auto) 10.5 % (13.4-35.0) L 05/04/19 05:18 [place] % (Auto) 13.3 % (0.0-7.3) H 05/04/19 05:18 Eos % (Auto) 0.1 % (0.0-4.3) 05/04/19 05:18 Baso % (Auto) 0.4 % (0.0-1.8) 05/04/19 05:18 Lymph # 1.3 K/mm3 (1.2-5.4) 05/04/19 05:18 [place] # 1.7 K/mm3 (0.0-0.8) H 05/04/19 05:18 Eos # 0.0 K/mm3 (0.0-0.4) 05/04/19 05:18 Baso # 0.0 K/mm3 (0.0-0.1) 05/04/19 05:18 Seg Neutrophils % 75.7 % (40.0-70.0) H 05/04/19 05:18 Seg Neutrophils # 9.6 K/mm3 (1.8-7.7) H 05/04/19 05:18 PT 13.0 Sec. (12.2-14.9) 05/08/19 08:23 INR 0.99 (0.87-1.13) 05/08/19 08:23 APTT 29.4 Sec. (24.2-36.6) 05/04/19 06:39 Sodium 141 mmol/L (137-145) 05/08/19 08:23 Potassium 5.0 mmol/L (3.6-5.0) 05/08/19 08:23 Chloride 103.1 mmol/L (98-107) 05/08/19 08:23 Carbon Dioxide 25 mmol/L (22-30) 05/08/19 08:23 Anion Gap 18 mmol/L 05/08/19 08:23 BUN 6 mg/dL (7-17) L 05/08/19 08:23 Creatinine 0.5 mg/dL (0.7-1.2) L 05/08/19 08:23 Estimated GFR > 60 ml/min 05/08/19 08:23 BUN/Creatinine Ratio 12 % 05/08/19 08:23 Glucose 73 mg/dL (65-100) 05/08/19 08:23 Calcium 8.7 mg/dL (8.4-10.2) 05/08/19 08:23 Magnesium 1.60 mg/dL (1.7-2.3) L 05/08/19 08:23 Total Bilirubin 3.60 mg/dL (0.1-1.2) H 05/04/19 05:18 AST 50 units/L (5-40) H 05/04/19 05:18 ALT 17 units/L (7-56) 05/04/19 05:18 Alkaline Phosphatase 69 units/L (35-129) 05/04/19 05:18 Ammonia 39.0 umol/L (25-60) 05/05/19 07:22 Total Creatine Kinase 55 units/L (30-135) 05/04/19 06:39 CK-MB (CK-2) 1.2 ng/mL (0.0-4.0) 05/04/19 06:39 CK-MB (CK-2) Rel Index 2.1 (0-4) 05/04/19 06:39 Troponin T < 0.010 ng/mL (0.00-0.029) 05/04/19 06:39 Total Protein 5.4 g/dL (6.3-8.2) L 05/04/19 05:18 Albumin 3.1 g/dL (3.9-5) L 05/04/19 05:18 Albumin/Globulin Ratio 1.3 % 05/04/19 05:18 Lipase 4 units/L (13-60) L 05/04/19 06:59 Vitamin B12 634.6 pg/mL (211-911) 05/04/19 06:59 TSH 0.397 mlU/mL (0.270-4.200) 05/05/19 07:22 Urine Color [place] (Yellow) 05/04/19 17:15 Urine Turbidity Slightly-cloudy (Clear) 05/04/19 17:15 Urine pH 6.0 (5.0-7.0) 05/04/19 17:15 Ur Specific [place] 1.025 (1.003-1.030) 05/04/19 17:15 Urine Protein 30 mg/dl mg/dL (Negative) 05/04/19 17:15 Urine Glucose (UA) Neg mg/dL (Negative) 05/04/19 17:15 Urine Ketones Tr mg/dL (Negative) 05/04/19 17:15 Urine Blood Sm (Negative) 05/04/19 17:15 Urine Nitrite Neg (Negative) 05/04/19 17:15 Urine Bilirubin Sm (Negative) 05/04/19 17:15 Urine Ictotest Negative (Negative) 05/04/19 17:15 Urine Urobilinogen 4.0 mg/dL (<2.0) 05/04/19 17:15 Ur Leukocyte Esterase Mod (Negative) 05/04/19 17:15 Urine WBC (Auto) > 182.0 /HPF (0.0-6.0) H 05/04/19 17:15 Urine RBC (Auto) 3.0 /HPF (0.0-6.0) 05/04/19 17:15 U Epithel Cells (Auto) 2.0 /HPF (0-13.0) 05/04/19 17:15 Urine Bacteria (Auto) 2+ /HPF (Negative) 05/04/19 17:15 Urine Mucus Few /HPF 05/04/19 17:15 Urine Opiates Screen Presumptive negative 05/04/19 17:15 Urine Methadone Screen Presumptive negative 05/04/19 17:15 Ur Barbiturates Screen Presumptive negative 05/04/19 17:15 Ur Phencyclidine Scrn Presumptive negative 05/04/19 17:15 Ur Amphetamines Screen Presumptive negative 05/04/19 17:15 U Benzodiazepines Scrn Presumptive negative 05/04/19 17:15 Urine Cocaine Screen Presumptive negative 05/04/19 17:15 U Marijuana (THC) Screen Presumptive positive 05/04/19 17:15 Drugs of Abuse Note Disclamer 05/04/19 17:15 Active Medications - Current Medications Current Medications: Generic Name Dose Route Start Last Admin Trade Name Freq PRN Reason Stop Dose Admin Acetaminophen 325 mg 05/05/19 16:25 05/09/19 10:25 Tylenol PO 325 mg Q6H PRN Administration Non Cardiac Pain or Temp>100.5 Albuterol 2.5 mg 05/05/19 16:32 Proventil IH Q4HRT PRN Wheezing Carvedilol 3.125 mg 05/07/19 22:00 05/09/19 10:13 Coreg PO 3.125 mg BID BRIELLE Administration Diphenoxylate HCl/Atropine 1 tab 05/07/19 15:11 Lomotil PO Q6H PRN Diarrhea Haloperidol Lactate 5 mg 05/04/19 13:16 Haldol IV Q1H PRN Unrespon. to mult. doses BZD's Levothyroxine Sodium 25 mcg 05/06/19 06:00 05/09/19 05:38 Synthroid PO 25 mcg DAILY@0600 BRIELLE Administration Lisinopril 2.5 mg 05/08/19 10:00 05/09/19 10:13 Zestril PO 2.5 mg QDAY BRIELLE Administration Loperamide HCl 2 mg 05/07/19 14:20 05/07/19 15:26 Imodium PO 2 mg Q2H PRN Administration Diarrhea Lorazepam 2 mg 05/04/19 13:16 Ativan IV Q1H PRN CIWA-Ar 8-15 Lorazepam 4 mg 05/04/19 13:16 Ativan IV Q1H PRN CIWA-Ar 16-25 Metoclopramide HCl 10 mg 05/04/19 12:20 Reglan IV Q8H PRN Nausea And Vomiting Ondansetron HCl 4 mg 05/04/19 12:20 Zofran IV Q4H PRN N/V unrelieved by Reglan Thiamine HCl 100 mg 05/04/19 14:00 05/09/19 10:13 Vitamin B-1 PO 100 mg QDAY BRIELLE Administration Nutrition/Malnutrition Assess - Dietary Evaluation Nutrition/Malnutrition Findings: Nutrition Notes Start: 05/04/19 12:51 Freq: Status: Active Protocol: Document 05/09/19 13:00 LP (Rec: 05/09/19 13:04 LP [id number]) Nutrition Notes Initial or Follow up Reassessment Other Pertinent Diagnosis Hypothyroidism, ETOH cirrhosis , hypokalemia, bilat hand pain Current Diet GI soft cardiac Labs/Tests Reviewed Pertinent Medications thiamine Height 5 ft 6 in Weight 86.2 kg [place] Body Weight (kg) 59.09 BMI 30.7 Subjective/Other Information Pt states not ewating well. Pt states she is drinking the glucerna and will drink more. Pt did not have appetite this AM. Percent of energy/protein needs met: less than 20% of kcal and protein needs Burn Absent Trauma Absent GI Symptoms None Minimum of two criteria No physical signs of malnutrition #1 Nutrition Diagnosis Inadequate oral intake Diagnosis Progress(for reassessment Continues documentation) Is patient on ventilator? No Is Patient Ambulatory and/or Out of Bed Yes REE-([facility]-ambulatory/OOB) [ 1863.875 [id number]] Calculation Used for Recommendations [facility] Additional Notes PRO needs (1-1.2g/kg): 82-98g/ day Fluid needs: 1mL/kcal Nutrition Intervention Change Diet Order: Continue GI soft diet cardiac Add Supplement/Snack (indicate name/kcal Glucerna strawberry TID /protein ) Provides kCal: 660 Provides Protein (gm) 30 Goal #1 Meet at least 80% of kcal and protein needs Anticipated Discharge Needs: Cardiac diet with ONS as needed Follow-Up By: 05/11/19 Additional Comments Follow for intakes
[2019-05-09] MEDS ORDERED: MAGNESIUM SULFATE 2 GM/50 ML BAG IV SCH (19:15)
[2019-05-09] MEDS ORDERED: MAGNESIUM SULFATE 2 GM in SODIUM CHLORIDE 0.9% 50 ML IV ONE (19:15)
[2019-05-10] MEDS: LEVOTHYROXINE 25 MCG TAB PO SCH (05:08)
[2019-05-10 05:48] LABS: Hematocrit 29.4 % (30.3-42.9); Hemoglobin 9.9 gm/dl (10.1-14.3); Mean Corpuscular HGB Conc 34 % (30-34); Mean Corpuscular Volume 99 fl (79-97); Platelet Count 581 K/mm3 (140-440); Red Blood Count 2.98 M/mm3 (3.65-5.03); Red Cell Distribution Width 13.8 % (13.2-15.2)
[2019-05-10 06:12] LABS: BUN/Creatinine Ratio 10; Blood Urea Nitrogen 5 mg/dL (7-17); Calcium 8.2 mg/dL (8.4-10.2); Hemolysis Index 1
[2019-05-10] MEDS: THIAMINE 100 MG TAB PO SCH (09:07)
[2019-05-10] MEDS: carvediloL 3.125 MG TAB PO SCH ×2 (09:07→20:59)
[2019-05-10] MEDS: LISINOPRIL 5 MG TAB PO SCH (09:07)
[2019-05-10] MEDS ORDERED: MAGNESIUM SULFATE 1 GM in SODIUM CHLORIDE 0.9% 50 ML IV ONE (11:45)
--- NOTE | 2019-05-10 12:20 | Progress Note ---
Assessment and Plan Assessment and plan: (1) UTI (urinary tract infection) Current Visit: Yes Status: Acute Plan to address problem: She currently being treated for UTI continue Levaquin patient asymptomatic at present. Continue antibiotics. No dysuria. No antibiotics required at discharge. Treated in house. (2) Hypokalemia Current Visit: Yes Status: Acute Plan to address problem: Hypokalemia corrected. (3) NSVT (nonsustained ventricular tachycardia) Current Visit: Yes Status: Acute Plan to address problem: Seen to respond to correction of potassium. Further episodes since correcting potassium. (4) Acute renal insufficiency Current Visit: No Status: Acute Plan to address problem: Has corrected resolved. (5) Diarrhea Current Visit: Yes Status: Acute Plan to address problem: Began prior to hospital stay no foul-smelling. Add Lomotil. (6) Cardiomyopathy Current Visit: Yes Status: Acute Plan to address problem: Patient with significant cardiomyopathy left heart cath revealed ejection fraction 20%. Etiology agree most likely alcohol abuse. Did speak with patient about the cessation of alcohol Alcoholics Anonymous. Did discuss with cardiology about defibrillator. [facility] Will be to discharge [facility]life this has been placed. Continue patient on Coreg lisinopril (7) Alcoholic cirrhosis Current Visit: Yes Status: Chronic Plan to address problem: Alcohol cessation. (8) History of alcohol abuse Current Visit: Yes Status: Chronic (9) NSVT- Asymptomatic during the incident today (10) Resistant Hypomagnesemia- Replace and recheck- WILL GIVE ANOTHER History Interval history: Patient seen and examined, sitting up, reports no distress, no palpitation. pending life vest Hospitalist Physical - Physical exam Narrative exam: General appearance: Present: no acute distress - EENT Eyes: Present: PERRL, EOM intact ENT: hearing intact, clear oral mucosa, dentition normal - Neck Neck: Present: supple, normal ROM - Respiratory Respiratory: bilateral: CTA - Cardiovascular Rhythm: regular - Extremities Extremities: no ischemia, pulses intact, pulses symmetrical, No edema, normal temperature Peripheral Pulses: within normal limits - Abdominal General gastrointestinal: soft, non-tender, non-distended, hypoactive bowel sounds - Integumentary Integumentary: Present: clear, warm, dry - Psychiatric Psychiatric: appropriate mood/affect, intact judgment & insight, cooperative - Neurologic Neurologic: CNII-XII intact, moves all extremities - Constitutional Vitals: Temp Pulse Resp BP Pulse Ox 98.0 F 88 19 109/69 100 05/10/19 05:00 05/10/19 09:49 05/10/19 05:00 05/10/19 06:04 05/10/19 06:04 General appearance: Present: no acute distress Results - Labs CBC & Chem 7: 05/11/19 05:05 05/11/19 05:05 Labs: Laboratory Last Values WBC 10.7 K/mm3 (4.5-11.0) 05/10/19 05:01 RBC 2.98 M/mm3 (3.65-5.03) L 05/10/19 05:01 Hgb 9.9 gm/dl (10.1-14.3) L 05/10/19 05:01 Hct 29.4 % (30.3-42.9) L 05/10/19 05:01 MCV 99 fl (79-97) H 05/10/19 05:01 MCH 33 pg (28-32) H 05/10/19 05:01 MCHC 34 % (30-34) 05/10/19 05:01 RDW 13.8 % (13.2-15.2) 05/10/19 05:01 Plt Count 581 K/mm3 (140-440) H 05/10/19 05:01 Lymph % (Auto) 10.5 % (13.4-35.0) L 05/04/19 05:18 [place] % (Auto) 13.3 % (0.0-7.3) H 05/04/19 05:18 Eos % (Auto) 0.1 % (0.0-4.3) 05/04/19 05:18 Baso % (Auto) 0.4 % (0.0-1.8) 05/04/19 05:18 Lymph # 1.3 K/mm3 (1.2-5.4) 05/04/19 05:18 [place] # 1.7 K/mm3 (0.0-0.8) H 05/04/19 05:18 Eos # 0.0 K/mm3 (0.0-0.4) 05/04/19 05:18 Baso # 0.0 K/mm3 (0.0-0.1) 05/04/19 05:18 Seg Neutrophils % 75.7 % (40.0-70.0) H 05/04/19 05:18 Seg Neutrophils # 9.6 K/mm3 (1.8-7.7) H 05/04/19 05:18 PT 13.0 Sec. (12.2-14.9) 05/08/19 08:23 INR 0.99 (0.87-1.13) 05/08/19 08:23 APTT 29.4 Sec. (24.2-36.6) 05/04/19 06:39 Sodium 138 mmol/L (137-145) 05/10/19 05:01 Potassium 4.0 mmol/L (3.6-5.0) 05/10/19 05:01 Chloride 102.9 mmol/L (98-107) 05/10/19 05:01 Carbon Dioxide 21 mmol/L (22-30) L 05/10/19 05:01 Anion Gap 18 mmol/L 05/10/19 05:01 BUN 5 mg/dL (7-17) L 05/10/19 05:01 Creatinine 0.5 mg/dL (0.7-1.2) L 05/10/19 05:01 Estimated GFR > 60 ml/min 05/10/19 05:01 BUN/Creatinine Ratio 10 % 05/10/19 05:01 Glucose 93 mg/dL (65-100) 05/10/19 05:01 Calcium 8.2 mg/dL (8.4-10.2) L 05/10/19 05:01 Magnesium 1.80 mg/dL (1.7-2.3) 05/10/19 05:01 Total Bilirubin 3.60 mg/dL (0.1-1.2) H 05/04/19 05:18 AST 50 units/L (5-40) H 05/04/19 05:18 ALT 17 units/L (7-56) 05/04/19 05:18 Alkaline Phosphatase 69 units/L (35-129) 05/04/19 05:18 Ammonia 39.0 umol/L (25-60) 05/05/19 07:22 Total Creatine Kinase 55 units/L (30-135) 05/04/19 06:39 CK-MB (CK-2) 1.2 ng/mL (0.0-4.0) 05/04/19 06:39 CK-MB (CK-2) Rel Index 2.1 (0-4) 05/04/19 06:39 Troponin T < 0.010 ng/mL (0.00-0.029) 05/04/19 06:39 Total Protein 5.4 g/dL (6.3-8.2) L 05/04/19 05:18 Albumin 3.1 g/dL (3.9-5) L 05/04/19 05:18 Albumin/Globulin Ratio 1.3 % 05/04/19 05:18 Lipase 4 units/L (13-60) L 05/04/19 06:59 Vitamin B1 <6 nmol/L (8-30) L 05/04/19 06:59 Vitamin B12 634.6 pg/mL (211-911) 05/04/19 06:59 TSH 0.397 mlU/mL (0.270-4.200) 05/05/19 07:22 Urine Color [place] (Yellow) 05/04/19 17:15 Urine Turbidity Slightly-cloudy (Clear) 05/04/19 17:15 Urine pH 6.0 (5.0-7.0) 05/04/19 17:15 Ur Specific [place] 1.025 (1.003-1.030) 05/04/19 17:15 Urine Protein 30 mg/dl mg/dL (Negative) 05/04/19 17:15 Urine Glucose (UA) Neg mg/dL (Negative) 05/04/19 17:15 Urine Ketones Tr mg/dL (Negative) 05/04/19 17:15 Urine Blood Sm (Negative) 05/04/19 17:15 Urine Nitrite Neg (Negative) 05/04/19 17:15 Urine Bilirubin Sm (Negative) 05/04/19 17:15 Urine Ictotest Negative (Negative) 05/04/19 17:15 Urine Urobilinogen 4.0 mg/dL (<2.0) 05/04/19 17:15 Ur Leukocyte Esterase Mod (Negative) 05/04/19 17:15 Urine WBC (Auto) > 182.0 /HPF (0.0-6.0) H 05/04/19 17:15 Urine RBC (Auto) 3.0 /HPF (0.0-6.0) 05/04/19 17:15 U Epithel Cells (Auto) 2.0 /HPF (0-13.0) 05/04/19 17:15 Urine Bacteria (Auto) 2+ /HPF (Negative) 05/04/19 17:15 Urine Mucus Few /HPF 05/04/19 17:15 Urine Opiates Screen Presumptive negative 05/04/19 17:15 Urine Methadone Screen Presumptive negative 05/04/19 17:15 Ur Barbiturates Screen Presumptive negative 05/04/19 17:15 Ur Phencyclidine Scrn Presumptive negative 05/04/19 17:15 Ur Amphetamines Screen Presumptive negative 05/04/19 17:15 U Benzodiazepines Scrn Presumptive negative 05/04/19 17:15 Urine Cocaine Screen Presumptive negative 05/04/19 17:15 U Marijuana (THC) Screen Presumptive positive 05/04/19 17:15 Drugs of Abuse Note Disclamer 05/04/19 17:15 Active Medications - Current Medications Current Medications: Generic Name Dose Route Start Last Admin Trade Name Freq PRN Reason Stop Dose Admin Acetaminophen 325 mg 05/05/19 16:25 05/09/19 10:25 Tylenol PO 325 mg Q6H PRN Administration Non Cardiac Pain or Temp>100.5 Albuterol 2.5 mg 05/05/19 16:32 Proventil IH Q4HRT PRN Wheezing Carvedilol 3.125 mg 05/07/19 22:00 05/10/19 09:07 Coreg PO 3.125 mg BID BRIELLE Administration Diphenoxylate HCl/Atropine 1 tab 05/07/19 15:11 Lomotil PO Q6H PRN Diarrhea Haloperidol Lactate 5 mg 05/04/19 13:16 Haldol IV Q1H PRN Unrespon. to mult. doses BZD's Magnesium Sulfate 1 gm/ Sodium 52 mls @ 52 mls/hr 05/10/19 11:45 05/10/19 11:46 Chloride IV 05/10/19 12:44 52 mls/hr ONCE ONE Administration Levothyroxine Sodium 25 mcg 05/06/19 06:00 05/10/19 05:08 Synthroid PO 25 mcg DAILY@0600 BRIELLE Administration Lisinopril 2.5 mg 05/08/19 10:00 05/10/19 09:07 Zestril PO 2.5 mg QDAY BRIELLE Administration Loperamide HCl 2 mg 05/07/19 14:20 05/07/19 15:26 Imodium PO 2 mg Q2H PRN Administration Diarrhea Lorazepam 2 mg 05/04/19 13:16 Ativan IV Q1H PRN CIWA-Ar 8-15 Lorazepam 4 mg 05/04/19 13:16 Ativan IV Q1H PRN CIWA-Ar 16-25 Metoclopramide HCl 10 mg 05/04/19 12:20 Reglan IV Q8H PRN Nausea And Vomiting Ondansetron HCl 4 mg 05/04/19 12:20 Zofran IV Q4H PRN N/V unrelieved by Reglan Thiamine HCl 100 mg 05/04/19 14:00 05/10/19 09:07 Vitamin B-1 PO 100 mg QDAY BRIELLE Administration Nutrition/Malnutrition Assess - Dietary Evaluation Nutrition/Malnutrition Findings: Nutrition Notes Start: 05/04/19 12:51 Freq: Status: Active Protocol: Document 05/09/19 13:00 LP (Rec: 05/09/19 13:04 LP [id number]) Nutrition Notes Initial or Follow up Reassessment Other Pertinent Diagnosis Hypothyroidism, ETOH cirrhosis , hypokalemia, bilat hand pain Current Diet GI soft cardiac Labs/Tests Reviewed Pertinent Medications thiamine Height 5 ft 6 in Weight 86.2 kg [place] Body Weight (kg) 59.09 BMI 30.7 Subjective/Other Information Pt states not ewating well. Pt states she is drinking the glucerna and will drink more. Pt did not have appetite this AM. Percent of energy/protein needs met: less than 20% of kcal and protein needs Burn Absent Trauma Absent GI Symptoms None Minimum of two criteria No physical signs of malnutrition #1 Nutrition Diagnosis Inadequate oral intake Diagnosis Progress(for reassessment Continues documentation) Is patient on ventilator? No Is Patient Ambulatory and/or Out of Bed Yes REE-([facility]-ambulatory/OOB) [ 1863.875 [id number]] Calculation Used for Recommendations [facility][1] Additional Notes PRO needs (1-1.2g/kg): 82-98g/ day Fluid needs: 1mL/kcal Nutrition Intervention Change Diet Order: Continue GI soft diet cardiac Add Supplement/Snack (indicate name/kcal Glucerna strawberry TID /protein ) Provides kCal: 660 Provides Protein (gm) 30 Goal #1 Meet at least 80% of kcal and protein needs Anticipated Discharge Needs: Cardiac diet with ONS as needed Follow-Up By: 05/11/19 Additional Comments Follow for intakes
[2019-05-11] MEDS: LEVOTHYROXINE 25 MCG TAB PO SCH (05:24)
[2019-05-11 05:46] LABS: Hematocrit 30.1 % (30.3-42.9); Hemoglobin 10.1 gm/dl (10.1-14.3); Mean Corpuscular HGB Conc 34 % (30-34); Mean Corpuscular Volume 99 fl (79-97); Platelet Count 537 K/mm3 (140-440); Red Blood Count 3.03 M/mm3 (3.65-5.03); Red Cell Distribution Width 13.9 % (13.2-15.2)
[2019-05-11 06:23] LABS: BUN/Creatinine Ratio 10; Blood Urea Nitrogen 5 mg/dL (7-17); Calcium 8.5 mg/dL (8.4-10.2); Hemolysis Index 52
[2019-05-11] MEDS: LISINOPRIL 5 MG TAB PO SCH (10:04)
[2019-05-11] MEDS: THIAMINE 100 MG TAB PO SCH (10:04)
[2019-05-11] MEDS: carvediloL 3.125 MG TAB PO SCH ×2 (10:04→21:31)
--- NOTE | 2019-05-11 12:39 | Progress Note ---
Assessment and Plan Assessment and plan: (1) UTI (urinary tract infection) Current Visit: Yes Status: Acute Plan to address problem: She currently being treated for UTI continue Levaquin patient asymptomatic at present. Continue antibiotics. No dysuria. No antibiotics required at discharge. Treated in house. (2) Hypokalemia Current Visit: Yes Status: Acute Plan to address problem: Hypokalemia corrected. (3) NSVT (nonsustained ventricular tachycardia) Current Visit: Yes Status: Acute Plan to address problem: Seen to respond to correction of potassium. Further episodes since correcting potassium. (4) Acute renal insufficiency Current Visit: No Status: Acute Plan to address problem: Has corrected resolved. (5) Diarrhea Current Visit: Yes Status: Acute Plan to address problem: Began prior to hospital stay no foul-smelling. Add Lomotil. (6) Cardiomyopathy Current Visit: Yes Status: Acute Plan to address problem: Patient with significant cardiomyopathy left heart cath revealed ejection fraction 20%. Etiology agree most likely alcohol abuse. Did speak with patient about the cessation of alcohol Alcoholics Anonymous. Did discuss with cardiology about defibrillator. [facility] this has been placed. Continue patient on Coreg lisinopril (7) Alcoholic cirrhosis Current Visit: Yes Status: Chronic Plan to address problem: Alcohol cessation. (8) History of alcohol abuse Current Visit: Yes Status: Chronic (9) NSVT- Asymptomatic during the incident today (10) Resistant Hypomagnesemia- Replace and recheck- WILL GIVE ANOTHER History Interval history: Patient seen and examined, lying down, reports no distress, no palpitation. pending life vest Hospitalist Physical - Physical exam Narrative exam: General appearance: Present: no acute distress - EENT Eyes: Present: PERRL, EOM intact ENT: hearing intact, clear oral mucosa, dentition normal - Neck Neck: Present: supple, normal ROM - Respiratory Respiratory: bilateral: CTA - Cardiovascular Rhythm: regular - Extremities Extremities: no ischemia, pulses intact, pulses symmetrical, No edema, normal temperature Peripheral Pulses: within normal limits - Abdominal General gastrointestinal: soft, non-tender, non-distended, hypoactive bowel sounds - Integumentary Integumentary: Present: clear, warm, dry - Psychiatric Psychiatric: appropriate mood/affect, intact judgment & insight, cooperative - Neurologic Neurologic: CNII-XII intact, moves all extremities - Constitutional Vitals: Temp Pulse Resp BP Pulse Ox 97.5 F L 80 18 117/72 99 05/11/19 08:30 05/11/19 10:00 05/11/19 08:30 05/11/19 08:30 05/11/19 08:30 General appearance: Present: no acute distress Results - Labs CBC & Chem 7: 05/11/19 05:05 05/11/19 05:05 Labs: Laboratory Last Values WBC 7.6 K/mm3 (4.5-11.0) 05/11/19 05:05 RBC 3.03 M/mm3 (3.65-5.03) L 05/11/19 05:05 Hgb 10.1 gm/dl (10.1-14.3) 05/11/19 05:05 Hct 30.1 % (30.3-42.9) L 05/11/19 05:05 MCV 99 fl (79-97) H 05/11/19 05:05 MCH 33 pg (28-32) H 05/11/19 05:05 MCHC 34 % (30-34) 05/11/19 05:05 RDW 13.9 % (13.2-15.2) 05/11/19 05:05 Plt Count 537 K/mm3 (140-440) H 05/11/19 05:05 Lymph % (Auto) 10.5 % (13.4-35.0) L 05/04/19 05:18 [place] % (Auto) 13.3 % (0.0-7.3) H 05/04/19 05:18 Eos % (Auto) 0.1 % (0.0-4.3) 05/04/19 05:18 Baso % (Auto) 0.4 % (0.0-1.8) 05/04/19 05:18 Lymph # 1.3 K/mm3 (1.2-5.4) 05/04/19 05:18 [place] # 1.7 K/mm3 (0.0-0.8) H 05/04/19 05:18 Eos # 0.0 K/mm3 (0.0-0.4) 05/04/19 05:18 Baso # 0.0 K/mm3 (0.0-0.1) 05/04/19 05:18 Seg Neutrophils % 75.7 % (40.0-70.0) H 05/04/19 05:18 Seg Neutrophils # 9.6 K/mm3 (1.8-7.7) H 05/04/19 05:18 PT 13.0 Sec. (12.2-14.9) 05/08/19 08:23 INR 0.99 (0.87-1.13) 05/08/19 08:23 APTT 29.4 Sec. (24.2-36.6) 05/04/19 06:39 Sodium 137 mmol/L (137-145) 05/11/19 05:05 Potassium 4.9 mmol/L (3.6-5.0) D 05/11/19 05:05 Chloride 105.7 mmol/L (98-107) 05/11/19 05:05 Carbon Dioxide 16 mmol/L (22-30) L 05/11/19 05:05 Anion Gap 20 mmol/L 05/11/19 05:05 BUN 5 mg/dL (7-17) L 05/11/19 05:05 Creatinine 0.5 mg/dL (0.7-1.2) L 05/11/19 05:05 Estimated GFR > 60 ml/min 05/11/19 05:05 BUN/Creatinine Ratio 10 % 05/11/19 05:05 Glucose 75 mg/dL (65-100) 05/11/19 05:05 Calcium 8.5 mg/dL (8.4-10.2) 05/11/19 05:05 Magnesium 1.80 mg/dL (1.7-2.3) 05/10/19 05:01 Total Bilirubin 3.60 mg/dL (0.1-1.2) H 05/04/19 05:18 AST 50 units/L (5-40) H 05/04/19 05:18 ALT 17 units/L (7-56) 05/04/19 05:18 Alkaline Phosphatase 69 units/L (35-129) 05/04/19 05:18 Ammonia 39.0 umol/L (25-60) 05/05/19 07:22 Total Creatine Kinase 55 units/L (30-135) 05/04/19 06:39 CK-MB (CK-2) 1.2 ng/mL (0.0-4.0) 05/04/19 06:39 CK-MB (CK-2) Rel Index 2.1 (0-4) 05/04/19 06:39 Troponin T < 0.010 ng/mL (0.00-0.029) 05/04/19 06:39 Total Protein 5.4 g/dL (6.3-8.2) L 05/04/19 05:18 Albumin 3.1 g/dL (3.9-5) L 05/04/19 05:18 Albumin/Globulin Ratio 1.3 % 05/04/19 05:18 Lipase 4 units/L (13-60) L 05/04/19 06:59 Vitamin B1 <6 nmol/L (8-30) L 05/04/19 06:59 Vitamin B12 634.6 pg/mL (211-911) 05/04/19 06:59 TSH 0.397 mlU/mL (0.270-4.200) 05/05/19 07:22 Urine Color [place] (Yellow) 05/04/19 17:15 Urine Turbidity Slightly-cloudy (Clear) 05/04/19 17:15 Urine pH 6.0 (5.0-7.0) 05/04/19 17:15 Ur Specific [place] 1.025 (1.003-1.030) 05/04/19 17:15 Urine Protein 30 mg/dl mg/dL (Negative) 05/04/19 17:15 Urine Glucose (UA) Neg mg/dL (Negative) 05/04/19 17:15 Urine Ketones Tr mg/dL (Negative) 05/04/19 17:15 Urine Blood Sm (Negative) 05/04/19 17:15 Urine Nitrite Neg (Negative) 05/04/19 17:15 Urine Bilirubin Sm (Negative) 05/04/19 17:15 Urine Ictotest Negative (Negative) 05/04/19 17:15 Urine Urobilinogen 4.0 mg/dL (<2.0) 05/04/19 17:15 Ur Leukocyte Esterase Mod (Negative) 05/04/19 17:15 Urine WBC (Auto) > 182.0 /HPF (0.0-6.0) H 05/04/19 17:15 Urine RBC (Auto) 3.0 /HPF (0.0-6.0) 05/04/19 17:15 U Epithel Cells (Auto) 2.0 /HPF (0-13.0) 05/04/19 17:15 Urine Bacteria (Auto) 2+ /HPF (Negative) 05/04/19 17:15 Urine Mucus Few /HPF 05/04/19 17:15 Urine Opiates Screen Presumptive negative 05/04/19 17:15 Urine Methadone Screen Presumptive negative 05/04/19 17:15 Ur Barbiturates Screen Presumptive negative 05/04/19 17:15 Ur Phencyclidine Scrn Presumptive negative 05/04/19 17:15 Ur Amphetamines Screen Presumptive negative 05/04/19 17:15 U Benzodiazepines Scrn Presumptive negative 05/04/19 17:15 Urine Cocaine Screen Presumptive negative 05/04/19 17:15 U Marijuana (THC) Screen Presumptive positive 05/04/19 17:15 Drugs of Abuse Note Disclamer 05/04/19 17:15 Active Medications - Current Medications Current Medications: Generic Name Dose Route Start Last Admin Trade Name Freq PRN Reason Stop Dose Admin Acetaminophen 325 mg 05/05/19 16:25 05/09/19 10:25 Tylenol PO 325 mg Q6H PRN Administration Non Cardiac Pain or Temp>100.5 Albuterol 2.5 mg 05/05/19 16:32 Proventil IH Q4HRT PRN Wheezing Carvedilol 3.125 mg 05/07/19 22:00 05/11/19 10:04 Coreg PO 3.125 mg BID BRIELLE Administration Diphenoxylate HCl/Atropine 1 tab 05/07/19 15:11 Lomotil PO Q6H PRN Diarrhea Haloperidol Lactate 5 mg 05/04/19 13:16 Haldol IV Q1H PRN Unrespon. to mult. doses BZD's Levothyroxine Sodium 25 mcg 05/06/19 06:00 05/11/19 05:24 Synthroid PO 25 mcg DAILY@0600 BRIELLE Administration Lisinopril 2.5 mg 05/08/19 10:00 05/11/19 10:04 Zestril PO 2.5 mg QDAY BRIELLE Administration Loperamide HCl 2 mg 05/07/19 14:20 05/07/19 15:26 Imodium PO 2 mg Q2H PRN Administration Diarrhea Lorazepam 2 mg 05/04/19 13:16 Ativan IV Q1H PRN CIWA-Ar 8-15 Lorazepam 4 mg 05/04/19 13:16 Ativan IV Q1H PRN CIWA-Ar 16-25 Metoclopramide HCl 10 mg 05/04/19 12:20 Reglan IV Q8H PRN Nausea And Vomiting Ondansetron HCl 4 mg 05/04/19 12:20 Zofran IV Q4H PRN N/V unrelieved by Reglan Thiamine HCl 100 mg 05/04/19 14:00 05/11/19 10:04 Vitamin B-1 PO 100 mg QDAY BRIELLE Administration Nutrition/Malnutrition Assess - Dietary Evaluation Nutrition/Malnutrition Findings: Nutrition Notes Start: 05/04/19 12:51 Freq: Status: Active Protocol: Document 05/09/19 13:00 LP (Rec: 05/09/19 13:04 LP [id number]) Nutrition Notes Initial or Follow up Reassessment Other Pertinent Diagnosis Hypothyroidism, ETOH cirrhosis , hypokalemia, bilat hand pain Current Diet GI soft cardiac Labs/Tests Reviewed Pertinent Medications thiamine Height 5 ft 6 in Weight 86.2 kg [place] Body Weight (kg) 59.09 BMI 30.7 Subjective/Other Information Pt states not ewating well. Pt states she is drinking the glucerna and will drink more. Pt did not have appetite this AM. Percent of energy/protein needs met: less than 20% of kcal and protein needs Burn Absent Trauma Absent GI Symptoms None Minimum of two criteria No physical signs of malnutrition #1 Nutrition Diagnosis Inadequate oral intake Diagnosis Progress(for reassessment Continues documentation) Is patient on ventilator? No Is Patient Ambulatory and/or Out of Bed Yes REE-([facility]-ambulatory/OOB) [ 1863.875 [id number]] Calculation Used for Recommendations [facility] Additional Notes PRO needs (1-1.2g/kg): 82-98g/ day Fluid needs: 1mL/kcal Nutrition Intervention Change Diet Order: Continue GI soft diet cardiac Add Supplement/Snack (indicate name/kcal Glucerna strawberry TID /protein ) Provides kCal: 660 Provides Protein (gm) 30 Goal #1 Meet at least 80% of kcal and protein needs Anticipated Discharge Needs: Cardiac diet with ONS as needed Follow-Up By: 05/11/19 Additional Comments Follow for intakes
[2019-05-11] MEDS: ACETAMINOPHEN 325 MG TAB PO PRN (21:31)
[2019-05-12] MEDS: LEVOTHYROXINE 25 MCG TAB PO SCH (05:20)
[2019-05-12] MEDS: carvediloL 3.125 MG TAB PO SCH ×2 (10:18→21:00)
[2019-05-12] MEDS: THIAMINE 100 MG TAB PO SCH (10:18)
--- NOTE | 2019-05-12 18:44 | Progress Note ---
Assessment and Plan Assessment and plan: (1) UTI (urinary tract infection) Current Visit: Yes Status: Acute Plan to address problem: She currently being treated for UTI continue Levaquin patient asymptomatic at present. Continue antibiotics. No dysuria. No antibiotics required at discharge. Treated in house. (2) Hypokalemia Current Visit: Yes Status: Acute Plan to address problem: Hypokalemia corrected. (3) NSVT (nonsustained ventricular tachycardia) Current Visit: Yes Status: Acute Plan to address problem: Seen to respond to correction of potassium. Further episodes since correcting potassium. (4) Acute renal insufficiency Current Visit: No Status: Acute Plan to address problem: Has corrected resolved. (5) Diarrhea Current Visit: Yes Status: Acute Plan to address problem: Began prior to hospital stay no foul-smelling. Add Lomotil. (6) Cardiomyopathy Current Visit: Yes Status: Acute Plan to address problem: Patient with significant cardiomyopathy left heart cath revealed ejection fraction 20%. Etiology agree most likely alcohol abuse. Did speak with patient about the cessation of alcohol Alcoholics Anonymous. Did discuss with cardiology about defibrillator. Patient agreeable with [facility]. Will be to discharge afterlife this has been placed. Continue patient on Coreg lisinopril (7) Alcoholic cirrhosis Current Visit: Yes Status: Chronic Plan to address problem: Alcohol cessation. (8) History of alcohol abuse Current Visit: Yes Status: Chronic (9) NSVT- Asymptomatic during the incident today (10) Resistant Hypomagnesemia- Replace and recheck- 11 hypotension: Hold lisinopril History Interval history: Patient seen and examined, lying down, reports no distress, no palpitation. pending life vest Hospitalist Physical - Physical exam Narrative exam: General appearance: Present: no acute distress - EENT Eyes: Present: PERRL, EOM intact ENT: hearing intact, clear oral mucosa, dentition normal - Neck Neck: Present: supple, normal ROM - Respiratory Respiratory: bilateral: CTA - Cardiovascular Rhythm: regular - Extremities Extremities: no ischemia, pulses intact, pulses symmetrical, No edema, normal temperature Peripheral Pulses: within normal limits - Abdominal General gastrointestinal: soft, non-tender, non-distended, hypoactive bowel sounds - Integumentary Integumentary: Present: clear, warm, dry - Psychiatric Psychiatric: appropriate mood/affect, intact judgment & insight, cooperative - Neurologic Neurologic: CNII-XII intact, moves all extremities - Constitutional Vitals: Temp Pulse Resp BP Pulse Ox 97.8 F 45 L 18 106/61 99 05/12/19 13:10 05/12/19 13:10 05/12/19 13:10 05/12/19 13:10 05/12/19 13:10 General appearance: Present: no acute distress Results - Labs CBC & Chem 7: 05/11/19 05:05 05/11/19 05:05 Labs: Laboratory Last Values WBC 7.6 K/mm3 (4.5-11.0) 05/11/19 05:05 RBC 3.03 M/mm3 (3.65-5.03) L 05/11/19 05:05 Hgb 10.1 gm/dl (10.1-14.3) 05/11/19 05:05 Hct 30.1 % (30.3-42.9) L 05/11/19 05:05 MCV 99 fl (79-97) H 05/11/19 05:05 MCH 33 pg (28-32) H 05/11/19 05:05 MCHC 34 % (30-34) 05/11/19 05:05 RDW 13.9 % (13.2-15.2) 05/11/19 05:05 Plt Count 537 K/mm3 (140-440) H 05/11/19 05:05 Lymph % (Auto) 10.5 % (13.4-35.0) L 05/04/19 05:18 [place] % (Auto) 13.3 % (0.0-7.3) H 05/04/19 05:18 Eos % (Auto) 0.1 % (0.0-4.3) 05/04/19 05:18 Baso % (Auto) 0.4 % (0.0-1.8) 05/04/19 05:18 Lymph # 1.3 K/mm3 (1.2-5.4) 05/04/19 05:18 [place] # 1.7 K/mm3 (0.0-0.8) H 05/04/19 05:18 Eos # 0.0 K/mm3 (0.0-0.4) 05/04/19 05:18 Baso # 0.0 K/mm3 (0.0-0.1) 05/04/19 05:18 Seg Neutrophils % 75.7 % (40.0-70.0) H 05/04/19 05:18 Seg Neutrophils # 9.6 K/mm3 (1.8-7.7) H 05/04/19 05:18 PT 13.0 Sec. (12.2-14.9) 05/08/19 08:23 INR 0.99 (0.87-1.13) 05/08/19 08:23 APTT 29.4 Sec. (24.2-36.6) 05/04/19 06:39 Sodium 137 mmol/L (137-145) 05/11/19 05:05 Potassium 4.9 mmol/L (3.6-5.0) D 05/11/19 05:05 Chloride 105.7 mmol/L (98-107) 05/11/19 05:05 Carbon Dioxide 16 mmol/L (22-30) L 05/11/19 05:05 Anion Gap 20 mmol/L 05/11/19 05:05 BUN 5 mg/dL (7-17) L 05/11/19 05:05 Creatinine 0.5 mg/dL (0.7-1.2) L 05/11/19 05:05 Estimated GFR > 60 ml/min 05/11/19 05:05 BUN/Creatinine Ratio 10 % 05/11/19 05:05 Glucose 75 mg/dL (65-100) 05/11/19 05:05 Calcium 8.5 mg/dL (8.4-10.2) 05/11/19 05:05 Magnesium 1.80 mg/dL (1.7-2.3) 05/10/19 05:01 Total Bilirubin 3.60 mg/dL (0.1-1.2) H 05/04/19 05:18 AST 50 units/L (5-40) H 05/04/19 05:18 ALT 17 units/L (7-56) 05/04/19 05:18 Alkaline Phosphatase 69 units/L (35-129) 05/04/19 05:18 Ammonia 39.0 umol/L (25-60) 05/05/19 07:22 Total Creatine Kinase 55 units/L (30-135) 05/04/19 06:39 CK-MB (CK-2) 1.2 ng/mL (0.0-4.0) 05/04/19 06:39 CK-MB (CK-2) Rel Index 2.1 (0-4) 05/04/19 06:39 Troponin T < 0.010 ng/mL (0.00-0.029) 05/04/19 06:39 Total Protein 5.4 g/dL (6.3-8.2) L 05/04/19 05:18 Albumin 3.1 g/dL (3.9-5) L 05/04/19 05:18 Albumin/Globulin Ratio 1.3 % 05/04/19 05:18 Lipase 4 units/L (13-60) L 05/04/19 06:59 Vitamin B1 <6 nmol/L (8-30) L 05/04/19 06:59 Vitamin B12 634.6 pg/mL (211-911) 05/04/19 06:59 TSH 0.397 mlU/mL (0.270-4.200) 05/05/19 07:22 Urine Color [place] (Yellow) 05/04/19 17:15 Urine Turbidity Slightly-cloudy (Clear) 05/04/19 17:15 Urine pH 6.0 (5.0-7.0) 05/04/19 17:15 Ur Specific [place] 1.025 (1.003-1.030) 05/04/19 17:15 Urine Protein 30 mg/dl mg/dL (Negative) 05/04/19 17:15 Urine Glucose (UA) Neg mg/dL (Negative) 05/04/19 17:15 Urine Ketones Tr mg/dL (Negative) 05/04/19 17:15 Urine Blood Sm (Negative) 05/04/19 17:15 Urine Nitrite Neg (Negative) 05/04/19 17:15 Urine Bilirubin Sm (Negative) 05/04/19 17:15 Urine Ictotest Negative (Negative) 05/04/19 17:15 Urine Urobilinogen 4.0 mg/dL (<2.0) 05/04/19 17:15 Ur Leukocyte Esterase Mod (Negative) 05/04/19 17:15 Urine WBC (Auto) > 182.0 /HPF (0.0-6.0) H 05/04/19 17:15 Urine RBC (Auto) 3.0 /HPF (0.0-6.0) 05/04/19 17:15 U Epithel Cells (Auto) 2.0 /HPF (0-13.0) 05/04/19 17:15 Urine Bacteria (Auto) 2+ /HPF (Negative) 05/04/19 17:15 Urine Mucus Few /HPF 05/04/19 17:15 Urine Opiates Screen Presumptive negative 05/04/19 17:15 Urine Methadone Screen Presumptive negative 05/04/19 17:15 Ur Barbiturates Screen Presumptive negative 05/04/19 17:15 Ur Phencyclidine Scrn Presumptive negative 05/04/19 17:15 Ur Amphetamines Screen Presumptive negative 05/04/19 17:15 U Benzodiazepines Scrn Presumptive negative 05/04/19 17:15 Urine Cocaine Screen Presumptive negative 05/04/19 17:15 U Marijuana (THC) Screen Presumptive positive 05/04/19 17:15 Drugs of Abuse Note Disclamer 05/04/19 17:15 Active Medications - Current Medications Current Medications: Generic Name Dose Route Start Last Admin Trade Name Freq PRN Reason Stop Dose Admin Acetaminophen 325 mg 05/05/19 16:25 05/11/19 21:31 Tylenol PO 325 mg Q6H PRN Administration Non Cardiac Pain or Temp>100.5 Albuterol 2.5 mg 05/05/19 16:32 Proventil IH Q4HRT PRN Wheezing Carvedilol 3.125 mg 05/07/19 22:00 05/12/19 10:18 Coreg PO 3.125 mg BID BRIELLE Administration Diphenoxylate HCl/Atropine 1 tab 05/07/19 15:11 Lomotil PO Q6H PRN Diarrhea Haloperidol Lactate 5 mg 05/04/19 13:16 Haldol IV Q1H PRN Unrespon. to mult. doses BZD's Levothyroxine Sodium 25 mcg 05/06/19 06:00 05/12/19 05:20 Synthroid PO 25 mcg DAILY@0600 BRIELLE Administration Loperamide HCl 2 mg 05/07/19 14:20 05/07/19 15:26 Imodium PO 2 mg Q2H PRN Administration Diarrhea Lorazepam 2 mg 05/04/19 13:16 Ativan IV Q1H PRN CIWA-Ar 8-15 Lorazepam 4 mg 05/04/19 13:16 Ativan IV Q1H PRN CIWA-Ar 16-25 Metoclopramide HCl 10 mg 05/04/19 12:20 Reglan IV Q8H PRN Nausea And Vomiting Ondansetron HCl 4 mg 05/04/19 12:20 Zofran IV Q4H PRN N/V unrelieved by Reglan Thiamine HCl 100 mg 05/04/19 14:00 05/12/19 10:18 Vitamin B-1 PO 100 mg QDAY BRIELLE Administration Nutrition/Malnutrition Assess - Dietary Evaluation Nutrition/Malnutrition Findings: Nutrition Notes Start: 05/04/19 12:51 Freq: Status: Active Protocol: Document 05/11/19 12:52 LM (Rec: 05/11/19 13:02 LM [email or web address]) Nutrition Notes Initial or Follow up Reassessment Other Pertinent Diagnosis Hypothyroidism, ETOH cirrhosis , hypokalemia, bilat hand pain Current Diet GI soft cardiac Labs/Tests Reviewed Pertinent Medications Reviewed Height 5 ft 6 in Weight 86.2 kg [place] Body Weight (kg) 59.09 BMI 30.7 Subjective/Other Information Pt stated she only ate cornflakes milk this AM and Glucerna this AM. Pt does not want eggs, toast, or grits. Encouraged pt to eat before drinking ONS. Percent of energy/protein needs met: less than 20% of kcal and protein needs Burn Absent Trauma Absent GI Symptoms None Minimum of two criteria No physical signs of malnutrition #1 Nutrition Diagnosis Inadequate oral intake Diagnosis Progress(for reassessment Continues documentation) Is patient on ventilator? No Is Patient Ambulatory and/or Out of Bed Yes REE-([facility]-ambulatory/OOB) [ 1863.875 [id number]] Calculation Used for Recommendations [facility] Additional Notes PRO needs (1-1.2g/kg): 82-98g/ day Fluid needs: 1mL/kcal Nutrition Intervention Change Diet Order: Continue GI soft diet cardiac Add Supplement/Snack (indicate name/kcal Glucerna strawberry TID /protein ) Provides kCal: 660 Provides Protein (gm) 30 Goal #1 Meet at least 80% of kcal and protein needs Anticipated Discharge Needs: Cardiac diet with ONS as needed Follow-Up By: 05/16/19 Additional Comments F/U for PO/ONS intakes
[2019-05-13] MEDS: LEVOTHYROXINE 25 MCG TAB PO SCH (05:11)
[2019-05-13] MEDS: SODIUM BICARBONATE 650 MG TAB PO SCH ×2 (11:23→21:02)
[2019-05-13] MEDS: carvediloL 3.125 MG TAB PO SCH ×2 (11:23→21:02)
[2019-05-13] MEDS: THIAMINE 100 MG TAB PO SCH (11:23)
--- NOTE | 2019-05-13 16:11 | Progress Note ---
Assessment and Plan Assessment and plan: (1) UTI (urinary tract infection) Current Visit: Yes Status: Acute Plan to address problem: She currently being treated for UTI continue Levaquin patient asymptomatic at present. Continue antibiotics. No dysuria. No antibiotics required at discharge. Treated in house. (2) Hypokalemia Current Visit: Yes Status: Acute Plan to address problem: Hypokalemia corrected. (3) NSVT (nonsustained ventricular tachycardia) Current Visit: Yes Status: Acute Plan to address problem: Seen to respond to correction of potassium. Further episodes since correcting potassium. (4) Acute renal insufficiency Current Visit: No Status: Acute Plan to address problem: Has corrected resolved. (5) Diarrhea Current Visit: Yes Status: Acute Plan to address problem: Began prior to hospital stay no foul-smelling. Added Lomotil. (6) Cardiomyopathy Current Visit: Yes Status: Acute Plan to address problem: Patient with significant cardiomyopathy left heart cath revealed ejection fraction 20%. Etiology agree most likely alcohol abuse. Did speak with patient about the cessation of alcohol Alcoholics Anonymous. Did discuss with cardiology about defibrillator. Patient agreeable with LifeVest. Will be to discharge afterlife this has been placed. Continue patient on Coreg lisinopril (7) Alcoholic cirrhosis Current Visit: Yes Status: Chronic Plan to address problem: Alcohol cessation. (8) History of alcohol abuse Current Visit: Yes Status: Chronic (9) NSVT- Asymptomatic during the incident today (10) Resistant Hypomagnesemia- Replace and recheck- 11 hypotension: Hold lisinopril History Interval history: Patient seen and examined, lying down, reports no distress, no palpitation. pending life vest, BP better Hospitalist Physical - Physical exam Narrative exam: General appearance: Present: no acute distress - EENT Eyes: Present: PERRL, EOM intact ENT: hearing intact, clear oral mucosa, dentition normal - Neck Neck: Present: supple, normal ROM - Respiratory Respiratory: bilateral: CTA - Cardiovascular Rhythm: regular - Extremities Extremities: no ischemia, pulses intact, pulses symmetrical, No edema, normal temperature Peripheral Pulses: within normal limits - Abdominal General gastrointestinal: soft, non-tender, non-distended, hypoactive bowel sounds - Integumentary Integumentary: Present: clear, warm, dry - Psychiatric Psychiatric: appropriate mood/affect, intact judgment & insight, cooperative - Neurologic Neurologic: CNII-XII intact, moves all extremities - Constitutional Vitals: Temp Pulse Resp BP Pulse Ox 98.3 F 64 18 115/73 100 05/13/19 11:35 05/13/19 11:35 05/13/19 11:35 05/13/19 11:35 05/13/19 11:35 General appearance: Present: no acute distress Results - Labs CBC & Chem 7: 05/11/19 05:05 05/11/19 05:05 Labs: Laboratory Last Values WBC 7.6 K/mm3 (4.5-11.0) 05/11/19 05:05 RBC 3.03 M/mm3 (3.65-5.03) L 05/11/19 05:05 Hgb 10.1 gm/dl (10.1-14.3) 05/11/19 05:05 Hct 30.1 % (30.3-42.9) L 05/11/19 05:05 MCV 99 fl (79-97) H 05/11/19 05:05 MCH 33 pg (28-32) H 05/11/19 05:05 MCHC 34 % (30-34) 05/11/19 05:05 RDW 13.9 % (13.2-15.2) 05/11/19 05:05 Plt Count 537 K/mm3 (140-440) H 05/11/19 05:05 Lymph % (Auto) 10.5 % (13.4-35.0) L 05/04/19 05:18 [place] % (Auto) 13.3 % (0.0-7.3) H 05/04/19 05:18 Eos % (Auto) 0.1 % (0.0-4.3) 05/04/19 05:18 Baso % (Auto) 0.4 % (0.0-1.8) 05/04/19 05:18 Lymph # 1.3 K/mm3 (1.2-5.4) 05/04/19 05:18 [place] # 1.7 K/mm3 (0.0-0.8) H 05/04/19 05:18 Eos # 0.0 K/mm3 (0.0-0.4) 05/04/19 05:18 Baso # 0.0 K/mm3 (0.0-0.1) 05/04/19 05:18 Seg Neutrophils % 75.7 % (40.0-70.0) H 05/04/19 05:18 Seg Neutrophils # 9.6 K/mm3 (1.8-7.7) H 05/04/19 05:18 PT 13.0 Sec. (12.2-14.9) 05/08/19 08:23 INR 0.99 (0.87-1.13) 05/08/19 08:23 APTT 29.4 Sec. (24.2-36.6) 05/04/19 06:39 Sodium 137 mmol/L (137-145) 05/11/19 05:05 Potassium 4.9 mmol/L (3.6-5.0) D 05/11/19 05:05 Chloride 105.7 mmol/L (98-107) 05/11/19 05:05 Carbon Dioxide 16 mmol/L (22-30) L 05/11/19 05:05 Anion Gap 20 mmol/L 05/11/19 05:05 BUN 5 mg/dL (7-17) L 05/11/19 05:05 Creatinine 0.5 mg/dL (0.7-1.2) L 05/11/19 05:05 Estimated GFR > 60 ml/min 05/11/19 05:05 BUN/Creatinine Ratio 10 % 05/11/19 05:05 Glucose 75 mg/dL (65-100) 05/11/19 05:05 Calcium 8.5 mg/dL (8.4-10.2) 05/11/19 05:05 Magnesium 1.80 mg/dL (1.7-2.3) 05/10/19 05:01 Total Bilirubin 3.60 mg/dL (0.1-1.2) H 05/04/19 05:18 AST 50 units/L (5-40) H 05/04/19 05:18 ALT 17 units/L (7-56) 05/04/19 05:18 Alkaline Phosphatase 69 units/L (35-129) 05/04/19 05:18 Ammonia 39.0 umol/L (25-60) 05/05/19 07:22 Total Creatine Kinase 55 units/L (30-135) 05/04/19 06:39 CK-MB (CK-2) 1.2 ng/mL (0.0-4.0) 05/04/19 06:39 CK-MB (CK-2) Rel Index 2.1 (0-4) 05/04/19 06:39 Troponin T < 0.010 ng/mL (0.00-0.029) 05/04/19 06:39 Total Protein 5.4 g/dL (6.3-8.2) L 05/04/19 05:18 Albumin 3.1 g/dL (3.9-5) L 05/04/19 05:18 Albumin/Globulin Ratio 1.3 % 05/04/19 05:18 Lipase 4 units/L (13-60) L 05/04/19 06:59 Vitamin B1 <6 nmol/L (8-30) L 05/04/19 06:59 Vitamin B12 634.6 pg/mL (211-911) 05/04/19 06:59 TSH 0.397 mlU/mL (0.270-4.200) 05/05/19 07:22 Urine Color [place] (Yellow) 05/04/19 17:15 Urine Turbidity Slightly-cloudy (Clear) 05/04/19 17:15 Urine pH 6.0 (5.0-7.0) 05/04/19 17:15 Ur Specific [place] 1.025 (1.003-1.030) 05/04/19 17:15 Urine Protein 30 mg/dl mg/dL (Negative) 05/04/19 17:15 Urine Glucose (UA) Neg mg/dL (Negative) 05/04/19 17:15 Urine Ketones Tr mg/dL (Negative) 05/04/19 17:15 Urine Blood Sm (Negative) 05/04/19 17:15 Urine Nitrite Neg (Negative) 05/04/19 17:15 Urine Bilirubin Sm (Negative) 05/04/19 17:15 Urine Ictotest Negative (Negative) 05/04/19 17:15 Urine Urobilinogen 4.0 mg/dL (<2.0) 05/04/19 17:15 Ur Leukocyte Esterase Mod (Negative) 05/04/19 17:15 Urine WBC (Auto) > 182.0 /HPF (0.0-6.0) H 05/04/19 17:15 Urine RBC (Auto) 3.0 /HPF (0.0-6.0) 05/04/19 17:15 U Epithel Cells (Auto) 2.0 /HPF (0-13.0) 05/04/19 17:15 Urine Bacteria (Auto) 2+ /HPF (Negative) 05/04/19 17:15 Urine Mucus Few /HPF 05/04/19 17:15 Urine Opiates Screen Presumptive negative 05/04/19 17:15 Urine Methadone Screen Presumptive negative 05/04/19 17:15 Ur Barbiturates Screen Presumptive negative 05/04/19 17:15 Ur Phencyclidine Scrn Presumptive negative 05/04/19 17:15 Ur Amphetamines Screen Presumptive negative 05/04/19 17:15 U Benzodiazepines Scrn Presumptive negative 05/04/19 17:15 Urine Cocaine Screen Presumptive negative 05/04/19 17:15 U Marijuana (THC) Screen Presumptive positive 05/04/19 17:15 Drugs of Abuse Note Disclamer 05/04/19 17:15 Active Medications - Current Medications Current Medications: Generic Name Dose Route Start Last Admin Trade Name Freq PRN Reason Stop Dose Admin Acetaminophen 325 mg 05/05/19 16:25 05/11/19 21:31 Tylenol PO 325 mg Q6H PRN Administration Non Cardiac Pain or Temp>100.5 Albuterol 2.5 mg 05/05/19 16:32 Proventil IH Q4HRT PRN Wheezing Carvedilol 3.125 mg 05/07/19 22:00 05/13/19 11:23 Coreg PO 3.125 mg BID BRIELLE Administration Diphenoxylate HCl/Atropine 1 tab 05/07/19 15:11 Lomotil PO Q6H PRN Diarrhea Haloperidol Lactate 5 mg 05/04/19 13:16 Haldol IV Q1H PRN Unrespon. to mult. doses BZD's Levothyroxine Sodium 25 mcg 05/06/19 06:00 05/13/19 05:11 Synthroid PO 25 mcg DAILY@0600 BRIELLE Administration Loperamide HCl 2 mg 05/07/19 14:20 05/07/19 15:26 Imodium PO 2 mg Q2H PRN Administration Diarrhea Lorazepam 2 mg 05/04/19 13:16 Ativan IV Q1H PRN CIWA-Ar 8-15 Lorazepam 4 mg 05/04/19 13:16 Ativan IV Q1H PRN CIWA-Ar 16-25 Metoclopramide HCl 10 mg 05/04/19 12:20 Reglan IV Q8H PRN Nausea And Vomiting Ondansetron HCl 4 mg 05/04/19 12:20 Zofran IV Q4H PRN N/V unrelieved by Reglan Sodium Bicarbonate 650 mg 05/13/19 10:00 05/13/19 11:23 Sodium Bicarbonate PO 650 mg BID BRIELLE Administration Thiamine HCl 100 mg 05/04/19 14:00 05/13/19 11:23 Vitamin B-1 PO 100 mg QDAY BRIELLE Administration Nutrition/Malnutrition Assess - Dietary Evaluation Nutrition/Malnutrition Findings: Nutrition Notes Start: 05/04/19 12:51 Freq: Status: Active Protocol: Document 05/11/19 12:52 LM (Rec: 05/11/19 13:02 LM [email or web address]) Nutrition Notes Initial or Follow up Reassessment Other Pertinent Diagnosis Hypothyroidism, ETOH cirrhosis , hypokalemia, bilat hand pain Current Diet GI soft cardiac Labs/Tests Reviewed Pertinent Medications Reviewed Height 5 ft 6 in Weight 86.2 kg [place] Body Weight (kg) 59.09 BMI 30.7 Subjective/Other Information Pt stated she only ate cornflakes milk this AM and Glucerna this AM. Pt does not want eggs, toast, or grits. Encouraged pt to eat before drinking ONS. Percent of energy/protein needs met: less than 20% of kcal and protein needs Burn Absent Trauma Absent GI Symptoms None Minimum of two criteria No physical signs of malnutrition #1 Nutrition Diagnosis Inadequate oral intake Diagnosis Progress(for reassessment Continues documentation) Is patient on ventilator? No Is Patient Ambulatory and/or Out of Bed Yes REE-([place]. or-ambulatory/OOB) [ 1863.875 NUTR.MSJOOB] Calculation Used for Recommendations [place]-[facility] or Additional Notes PRO needs (1-1.2g/kg): 82-98g/ day Fluid needs: 1mL/kcal Nutrition Intervention Change Diet Order: Continue GI soft diet cardiac Add Supplement/Snack (indicate name/kcal Glucerna strawberry TID /protein ) Provides kCal: 660 Provides Protein (gm) 30 Goal #1 Meet at least 80% of kcal and protein needs Anticipated Discharge Needs: Cardiac diet with ONS as needed Follow-Up By: 05/16/19 Additional Comments F/U for PO/ONS intakes
[2019-05-14] MEDS: LEVOTHYROXINE 25 MCG TAB PO SCH (06:00)
[2019-05-14] MEDS: carvediloL 3.125 MG TAB PO SCH ×2 (09:41→22:18)
[2019-05-14] MEDS: THIAMINE 100 MG TAB PO SCH (09:41)
[2019-05-14] MEDS: SODIUM BICARBONATE 650 MG TAB PO SCH ×2 (09:41→22:18)
--- NOTE | 2019-05-14 15:25 | Progress Note ---
Assessment and Plan Assessment and plan: (1) UTI (urinary tract infection) Current Visit: Yes Status: Acute Plan to address problem: She currently being treated for UTI continue Levaquin patient asymptomatic at present. Continue antibiotics. No dysuria. No antibiotics required at discharge. Treated in house. (2) Hypokalemia Current Visit: Yes Status: Acute Plan to address problem: Hypokalemia corrected. (3) NSVT (nonsustained ventricular tachycardia) Current Visit: Yes Status: Acute Plan to address problem: Seen to respond to correction of potassium. Further episodes since correcting potassium. (4) Acute renal insufficiency Current Visit: No Status: Acute Plan to address problem: Has corrected resolved. (5) Diarrhea Current Visit: Yes Status: Acute Plan to address problem: Began prior to hospital stay no foul-smelling. Added Lomotil. (6) Cardiomyopathy Current Visit: Yes Status: Acute Plan to address problem: Patient with significant cardiomyopathy left heart cath revealed ejection fraction 20%. Etiology agree most likely alcohol abuse. Did speak with patient about the cessation of alcohol Alcoholics Anonymous. Did discuss with cardiology about defibrillator. Patient agreeable with LifeVest. Will be to discharge afterlife this has been placed. Continue patient on Coreg lisinopril (7) Alcoholic cirrhosis Current Visit: Yes Status: Chronic Plan to address problem: Alcohol cessation. (8) History of alcohol abuse Current Visit: Yes Status: Chronic (9) NSVT- Asymptomatic during the incident today (10) Resistant Hypomagnesemia- Replace and recheck- 11 hypotension: Hold lisinopril History Interval history: Patient seen and examined, lying down, reports no distress, no palpitation. pending life vest, BP better . no adverse event reported overnight Hospitalist Physical - Physical exam Narrative exam: General appearance: Present: no acute distress - EENT Eyes: Present: PERRL, EOM intact ENT: hearing intact, clear oral mucosa, dentition normal - Neck Neck: Present: supple, normal ROM - Respiratory Respiratory: bilateral: CTA - Cardiovascular Rhythm: regular - Extremities Extremities: no ischemia, pulses intact, pulses symmetrical, No edema, normal temperature Peripheral Pulses: within normal limits - Abdominal General gastrointestinal: soft, non-tender, non-distended, hypoactive bowel sounds - Integumentary Integumentary: Present: clear, warm, dry - Psychiatric Psychiatric: appropriate mood/affect, intact judgment & insight, cooperative - Neurologic Neurologic: CNII-XII intact, moves all extremities - Constitutional Vitals: Temp Pulse Resp BP Pulse Ox 97.9 F 52 L 18 123/56 100 05/14/19 11:41 05/14/19 11:41 05/14/19 11:41 05/14/19 11:41 05/14/19 11:41 General appearance: Present: no acute distress Results - Labs CBC & Chem 7: 05/11/19 05:05 05/11/19 05:05 Labs: Laboratory Last Values WBC 7.6 K/mm3 (4.5-11.0) 05/11/19 05:05 RBC 3.03 M/mm3 (3.65-5.03) L 05/11/19 05:05 Hgb 10.1 gm/dl (10.1-14.3) 05/11/19 05:05 Hct 30.1 % (30.3-42.9) L 05/11/19 05:05 MCV 99 fl (79-97) H 05/11/19 05:05 MCH 33 pg (28-32) H 05/11/19 05:05 MCHC 34 % (30-34) 05/11/19 05:05 RDW 13.9 % (13.2-15.2) 05/11/19 05:05 Plt Count 537 K/mm3 (140-440) H 05/11/19 05:05 Lymph % (Auto) 10.5 % (13.4-35.0) L 05/04/19 05:18 [place] % (Auto) 13.3 % (0.0-7.3) H 05/04/19 05:18 Eos % (Auto) 0.1 % (0.0-4.3) 05/04/19 05:18 Baso % (Auto) 0.4 % (0.0-1.8) 05/04/19 05:18 Lymph # 1.3 K/mm3 (1.2-5.4) 05/04/19 05:18 [place] # 1.7 K/mm3 (0.0-0.8) H 05/04/19 05:18 Eos # 0.0 K/mm3 (0.0-0.4) 05/04/19 05:18 Baso # 0.0 K/mm3 (0.0-0.1) 05/04/19 05:18 Seg Neutrophils % 75.7 % (40.0-70.0) H 05/04/19 05:18 Seg Neutrophils # 9.6 K/mm3 (1.8-7.7) H 05/04/19 05:18 PT 13.0 Sec. (12.2-14.9) 05/08/19 08:23 INR 0.99 (0.87-1.13) 05/08/19 08:23 APTT 29.4 Sec. (24.2-36.6) 05/04/19 06:39 Sodium 137 mmol/L (137-145) 05/11/19 05:05 Potassium 4.9 mmol/L (3.6-5.0) D 05/11/19 05:05 Chloride 105.7 mmol/L (98-107) 05/11/19 05:05 Carbon Dioxide 16 mmol/L (22-30) L 05/11/19 05:05 Anion Gap 20 mmol/L 05/11/19 05:05 BUN 5 mg/dL (7-17) L 05/11/19 05:05 Creatinine 0.5 mg/dL (0.7-1.2) L 05/11/19 05:05 Estimated GFR > 60 ml/min 05/11/19 05:05 BUN/Creatinine Ratio 10 % 05/11/19 05:05 Glucose 75 mg/dL (65-100) 05/11/19 05:05 Calcium 8.5 mg/dL (8.4-10.2) 05/11/19 05:05 Magnesium 1.80 mg/dL (1.7-2.3) 05/10/19 05:01 Total Bilirubin 3.60 mg/dL (0.1-1.2) H 05/04/19 05:18 AST 50 units/L (5-40) H 05/04/19 05:18 ALT 17 units/L (7-56) 05/04/19 05:18 Alkaline Phosphatase 69 units/L (35-129) 05/04/19 05:18 Ammonia 39.0 umol/L (25-60) 05/05/19 07:22 Total Creatine Kinase 55 units/L (30-135) 05/04/19 06:39 CK-MB (CK-2) 1.2 ng/mL (0.0-4.0) 05/04/19 06:39 CK-MB (CK-2) Rel Index 2.1 (0-4) 05/04/19 06:39 Troponin T < 0.010 ng/mL (0.00-0.029) 05/04/19 06:39 Total Protein 5.4 g/dL (6.3-8.2) L 05/04/19 05:18 Albumin 3.1 g/dL (3.9-5) L 05/04/19 05:18 Albumin/Globulin Ratio 1.3 % 05/04/19 05:18 Lipase 4 units/L (13-60) L 05/04/19 06:59 Vitamin B1 <6 nmol/L (8-30) L 05/04/19 06:59 Vitamin B12 634.6 pg/mL (211-911) 05/04/19 06:59 TSH 0.397 mlU/mL (0.270-4.200) 05/05/19 07:22 Urine Color [place] (Yellow) 05/04/19 17:15 Urine Turbidity Slightly-cloudy (Clear) 05/04/19 17:15 Urine pH 6.0 (5.0-7.0) 05/04/19 17:15 Ur Specific [place] 1.025 (1.003-1.030) 05/04/19 17:15 Urine Protein 30 mg/dl mg/dL (Negative) 05/04/19 17:15 Urine Glucose (UA) Neg mg/dL (Negative) 05/04/19 17:15 Urine Ketones Tr mg/dL (Negative) 05/04/19 17:15 Urine Blood Sm (Negative) 05/04/19 17:15 Urine Nitrite Neg (Negative) 05/04/19 17:15 Urine Bilirubin Sm (Negative) 05/04/19 17:15 Urine Ictotest Negative (Negative) 05/04/19 17:15 Urine Urobilinogen 4.0 mg/dL (<2.0) 05/04/19 17:15 Ur Leukocyte Esterase Mod (Negative) 05/04/19 17:15 Urine WBC (Auto) > 182.0 /HPF (0.0-6.0) H 05/04/19 17:15 Urine RBC (Auto) 3.0 /HPF (0.0-6.0) 05/04/19 17:15 U Epithel Cells (Auto) 2.0 /HPF (0-13.0) 05/04/19 17:15 Urine Bacteria (Auto) 2+ /HPF (Negative) 05/04/19 17:15 Urine Mucus Few /HPF 05/04/19 17:15 Urine Opiates Screen Presumptive negative 05/04/19 17:15 Urine Methadone Screen Presumptive negative 05/04/19 17:15 Ur Barbiturates Screen Presumptive negative 05/04/19 17:15 Ur Phencyclidine Scrn Presumptive negative 05/04/19 17:15 Ur Amphetamines Screen Presumptive negative 05/04/19 17:15 U Benzodiazepines Scrn Presumptive negative 05/04/19 17:15 Urine Cocaine Screen Presumptive negative 05/04/19 17:15 U Marijuana (THC) Screen Presumptive positive 05/04/19 17:15 Drugs of Abuse Note Disclamer 05/04/19 17:15 Active Medications - Current Medications Current Medications: Generic Name Dose Route Start Last Admin Trade Name Freq PRN Reason Stop Dose Admin Acetaminophen 325 mg 05/05/19 16:25 05/11/19 21:31 Tylenol PO 325 mg Q6H PRN Administration Non Cardiac Pain or Temp>100.5 Albuterol 2.5 mg 05/05/19 16:32 Proventil IH Q4HRT PRN Wheezing Carvedilol 3.125 mg 05/07/19 22:00 05/14/19 09:41 Coreg PO 3.125 mg BID BRIELLE Administration Diphenoxylate HCl/Atropine 1 tab 05/07/19 15:11 Lomotil PO Q6H PRN Diarrhea Haloperidol Lactate 5 mg 05/04/19 13:16 Haldol IV Q1H PRN Unrespon. to mult. doses BZD's Levothyroxine Sodium 25 mcg 05/06/19 06:00 05/14/19 06:00 Synthroid PO 25 mcg DAILY@0600 BRIELLE Administration Loperamide HCl 2 mg 05/07/19 14:20 05/07/19 15:26 Imodium PO 2 mg Q2H PRN Administration Diarrhea Lorazepam 2 mg 05/04/19 13:16 Ativan IV Q1H PRN CIWA-Ar 8-15 Lorazepam 4 mg 05/04/19 13:16 Ativan IV Q1H PRN CIWA-Ar 16-25 Metoclopramide HCl 10 mg 05/04/19 12:20 Reglan IV Q8H PRN Nausea And Vomiting Ondansetron HCl 4 mg 05/04/19 12:20 Zofran IV Q4H PRN N/V unrelieved by Reglan Sodium Bicarbonate 650 mg 05/13/19 10:00 05/14/19 09:41 Sodium Bicarbonate PO 650 mg BID BRIELLE Administration Thiamine HCl 100 mg 05/04/19 14:00 05/14/19 09:41 Vitamin B-1 PO 100 mg QDAY BRIELLE Administration Nutrition/Malnutrition Assess - Dietary Evaluation Nutrition/Malnutrition Findings: Nutrition Notes Start: 05/04/19 12:51 Freq: Status: Active Protocol: Document 05/11/19 12:52 LM (Rec: 05/11/19 13:02 LM [email or web address]) Nutrition Notes Initial or Follow up Reassessment Other Pertinent Diagnosis Hypothyroidism, ETOH cirrhosis , hypokalemia, bilat hand pain Current Diet GI soft cardiac Labs/Tests Reviewed Pertinent Medications Reviewed Height 5 ft 6 in Weight 86.2 kg [place] Body Weight (kg) 59.09 BMI 30.7 Subjective/Other Information Pt stated she only ate cornflakes milk this AM and Glucerna this AM. Pt does not want eggs, toast, or grits. Encouraged pt to eat before drinking ONS. Percent of energy/protein needs met: less than 20% of kcal and protein needs Burn Absent Trauma Absent GI Symptoms None Minimum of two criteria No physical signs of malnutrition #1 Nutrition Diagnosis Inadequate oral intake Diagnosis Progress(for reassessment Continues documentation) Is patient on ventilator? No Is Patient Ambulatory and/or Out of Bed Yes REE-([place]. Jeor-ambulatory/OOB) [ 1863.875 NUTR.MSJOOB] Calculation Used for Recommendations [place]-[facility] or Additional Notes PRO needs (1-1.2g/kg): 82-98g/ day Fluid needs: 1mL/kcal Nutrition Intervention Change Diet Order: Continue GI soft diet cardiac Add Supplement/Snack (indicate name/kcal Glucerna strawberry TID /protein ) Provides kCal: 660 Provides Protein (gm) 30 Goal #1 Meet at least 80% of kcal and protein needs Anticipated Discharge Needs: Cardiac diet with ONS as needed Follow-Up By: 05/16/19 Additional Comments F/U for PO/ONS intakes
[2019-05-15] MEDS: LEVOTHYROXINE 25 MCG TAB PO SCH (06:16)
[2019-05-15] MEDS: carvediloL 3.125 MG TAB PO SCH ×2 (09:39→21:18)
[2019-05-15] MEDS: SODIUM BICARBONATE 650 MG TAB PO SCH ×2 (09:39→21:18)
[2019-05-15] MEDS: THIAMINE 100 MG TAB PO SCH (09:39)
--- NOTE | 2019-05-15 18:38 | Progress Note ---
Assessment and Plan Assessment and plan: Patient is a 63 yo woman with a history of alcohol abuse and hypothyroidism who presents to [facility] ED with worsening severe constant bilateral hand cramping and right leg weakness and bilateral hand cramping burning pain. Her symptoms started about 2 weeks ago with daily n/v, abdominal distension and bloating. She denies any abdominal pains. She is under the care of Dr. Robert GI, who ordered MRI of the stomach yesterday. She is scheduled for EGD in May. She has been unable to eat for the last 5 days due to severe nausea vomiting. She had crampy abdominal pains which is worse after vomiting. She underwent an MRI yesterday to investigate her GI symptoms. After obtaining the MRI in the outpatient setting, she developed right leg weakness. She had difficulty getting in and out of her car. She had difficulty diving because of bilateral hand cramping and weakness. Her family member needed to drive her to the emergency department due to her severe symptoms. She subsequently developed bilateral hand burning. She has lost ~125 pounds over the last year due to thyroid disease. She does admit to drinking excessive amounts of Vodka and Diet Coke, half gallon of Vodka will last about 3 days but less on the weekends. She denies any trauma. She denies tobacco use. Due to her recent stomach issues, she has not been able to drink alcohol. Her last alcoholic drink was yesterday at 2:30 pm. (1) Cardiomyopathy Current Visit: Yes Status: Acute Plan to address problem: Patient with significant cardiomyopathy left heart cath revealed ejection fraction 20%. Etiology agree most likely alcohol abuse. Did speak with patient about the cessation of alcohol Alcoholics Anonymous. Did discuss with cardiology about defibrillator. Patient agreeable with LifeVest. Will be to discharge afterlife this has been placed. Continue patient on Coreg lisinopril (2) Hypokalemia Current Visit: Yes Status: Acute Plan to address problem: Hypokalemia corrected. (3) NSVT (nonsustained ventricular tachycardia) Current Visit: Yes Status: Acute Plan to address problem: Seen to respond to correction of potassium. Further episodes since correcting potassium. (4) Acute renal insufficiency Current Visit: No Status: Acute Plan to address problem: Has corrected resolved. (5) Diarrhea Current Visit: Yes Status: Acute Plan to address problem: Began prior to hospital stay no foul-smelling. Added Lomotil. (6) UTI (urinary tract infection) Current Visit: Yes Status: Acute Plan to address problem: She was treated with Levaquin patient asymptomatic at present. Continue antibiotics. No dysuria. No antibiotics required at discharge. Treated in house. (7) Alcoholic cirrhosis Current Visit: Yes Status: Chronic Plan to address problem: Alcohol cessation. (8) History of alcohol abuse Current Visit: Yes Status: Chronic (9) NSVT- Asymptomatic during the incident today (10) Resistant Hypomagnesemia- Replace and recheck- (11) hypotension: Hold lisinopril (12) THC dependance Can discharge when lifevest obtained. History Interval history: Patient seen and examined, lying down, reports no distress, no palpitation. Pending life vest, BP better . no adverse event reported overnight Hospitalist Physical - Physical exam Narrative exam: General appearance: Present: no acute distress - EENT Eyes: Present: PERRL, EOM intact ENT: hearing intact, clear oral mucosa, dentition normal - Neck Neck: Present: supple, normal ROM - Respiratory Respiratory: bilateral: CTA - Cardiovascular Rhythm: regular - Extremities Extremities: no ischemia, pulses intact, pulses symmetrical, No edema, normal temperature Peripheral Pulses: within normal limits - Abdominal General gastrointestinal: soft, non-tender, non-distended, hypoactive bowel sounds - Integumentary Integumentary: Present: clear, warm, dry - Psychiatric Psychiatric: appropriate mood/affect, intact judgment & insight, cooperative - Neurologic Neurologic: CNII-XII intact, moves all extremities - Constitutional Vitals: Temp Pulse Resp BP Pulse Ox 97.5 F L 59 L 18 142/85 100 05/15/19 12:05 05/15/19 12:05 05/15/19 12:05 05/15/19 17:22 05/15/19 12:05 General appearance: Present: no acute distress Results - Labs CBC & Chem 7: 05/11/19 05:05 05/11/19 05:05 Labs: Laboratory Last Values WBC 7.6 K/mm3 (4.5-11.0) 05/11/19 05:05 RBC 3.03 M/mm3 (3.65-5.03) L 05/11/19 05:05 Hgb 10.1 gm/dl (10.1-14.3) 05/11/19 05:05 Hct 30.1 % (30.3-42.9) L 05/11/19 05:05 MCV 99 fl (79-97) H 05/11/19 05:05 MCH 33 pg (28-32) H 05/11/19 05:05 MCHC 34 % (30-34) 05/11/19 05:05 RDW 13.9 % (13.2-15.2) 05/11/19 05:05 Plt Count 537 K/mm3 (140-440) H 05/11/19 05:05 Lymph % (Auto) 10.5 % (13.4-35.0) L 05/04/19 05:18 [place] % (Auto) 13.3 % (0.0-7.3) H 05/04/19 05:18 Eos % (Auto) 0.1 % (0.0-4.3) 05/04/19 05:18 Baso % (Auto) 0.4 % (0.0-1.8) 05/04/19 05:18 Lymph # 1.3 K/mm3 (1.2-5.4) 05/04/19 05:18 [place] # 1.7 K/mm3 (0.0-0.8) H 05/04/19 05:18 Eos # 0.0 K/mm3 (0.0-0.4) 05/04/19 05:18 Baso # 0.0 K/mm3 (0.0-0.1) 05/04/19 05:18 Seg Neutrophils % 75.7 % (40.0-70.0) H 05/04/19 05:18 Seg Neutrophils # 9.6 K/mm3 (1.8-7.7) H 05/04/19 05:18 PT 13.0 Sec. (12.2-14.9) 05/08/19 08:23 INR 0.99 (0.87-1.13) 05/08/19 08:23 APTT 29.4 Sec. (24.2-36.6) 05/04/19 06:39 Sodium 137 mmol/L (137-145) 05/11/19 05:05 Potassium 4.9 mmol/L (3.6-5.0) D 05/11/19 05:05 Chloride 105.7 mmol/L (98-107) 05/11/19 05:05 Carbon Dioxide 16 mmol/L (22-30) L 05/11/19 05:05 Anion Gap 20 mmol/L 05/11/19 05:05 BUN 5 mg/dL (7-17) L 05/11/19 05:05 Creatinine 0.5 mg/dL (0.7-1.2) L 05/11/19 05:05 Estimated GFR > 60 ml/min 05/11/19 05:05 BUN/Creatinine Ratio 10 % 05/11/19 05:05 Glucose 75 mg/dL (65-100) 05/11/19 05:05 Calcium 8.5 mg/dL (8.4-10.2) 05/11/19 05:05 Magnesium 1.80 mg/dL (1.7-2.3) 05/10/19 05:01 Total Bilirubin 3.60 mg/dL (0.1-1.2) H 05/04/19 05:18 AST 50 units/L (5-40) H 05/04/19 05:18 ALT 17 units/L (7-56) 05/04/19 05:18 Alkaline Phosphatase 69 units/L (35-129) 05/04/19 05:18 Ammonia 39.0 umol/L (25-60) 05/05/19 07:22 Total Creatine Kinase 55 units/L (30-135) 05/04/19 06:39 CK-MB (CK-2) 1.2 ng/mL (0.0-4.0) 05/04/19 06:39 CK-MB (CK-2) Rel Index 2.1 (0-4) 05/04/19 06:39 Troponin T < 0.010 ng/mL (0.00-0.029) 05/04/19 06:39 Total Protein 5.4 g/dL (6.3-8.2) L 05/04/19 05:18 Albumin 3.1 g/dL (3.9-5) L 05/04/19 05:18 Albumin/Globulin Ratio 1.3 % 05/04/19 05:18 Lipase 4 units/L (13-60) L 05/04/19 06:59 Vitamin B1 <6 nmol/L (8-30) L 05/04/19 06:59 Vitamin B12 634.6 pg/mL (211-911) 05/04/19 06:59 TSH 0.397 mlU/mL (0.270-4.200) 05/05/19 07:22 Urine Color [place] (Yellow) 05/04/19 17:15 Urine Turbidity Slightly-cloudy (Clear) 05/04/19 17:15 Urine pH 6.0 (5.0-7.0) 05/04/19 17:15 Ur Specific [place] 1.025 (1.003-1.030) 05/04/19 17:15 Urine Protein 30 mg/dl mg/dL (Negative) 05/04/19 17:15 Urine Glucose (UA) Neg mg/dL (Negative) 05/04/19 17:15 Urine Ketones Tr mg/dL (Negative) 05/04/19 17:15 Urine Blood Sm (Negative) 05/04/19 17:15 Urine Nitrite Neg (Negative) 05/04/19 17:15 Urine Bilirubin Sm (Negative) 05/04/19 17:15 Urine Ictotest Negative (Negative) 05/04/19 17:15 Urine Urobilinogen 4.0 mg/dL (<2.0) 05/04/19 17:15 Ur Leukocyte Esterase Mod (Negative) 05/04/19 17:15 Urine WBC (Auto) > 182.0 /HPF (0.0-6.0) H 05/04/19 17:15 Urine RBC (Auto) 3.0 /HPF (0.0-6.0) 05/04/19 17:15 U Epithel Cells (Auto) 2.0 /HPF (0-13.0) 05/04/19 17:15 Urine Bacteria (Auto) 2+ /HPF (Negative) 05/04/19 17:15 Urine Mucus Few /HPF 05/04/19 17:15 Urine Opiates Screen Presumptive negative 05/04/19 17:15 Urine Methadone Screen Presumptive negative 05/04/19 17:15 Ur Barbiturates Screen Presumptive negative 05/04/19 17:15 Ur Phencyclidine Scrn Presumptive negative 05/04/19 17:15 Ur Amphetamines Screen Presumptive negative 05/04/19 17:15 U Benzodiazepines Scrn Presumptive negative 05/04/19 17:15 Urine Cocaine Screen Presumptive negative 05/04/19 17:15 U Marijuana (THC) Screen Presumptive positive 05/04/19 17:15 Drugs of Abuse Note Disclamer 05/04/19 17:15 Active Medications - Current Medications Current Medications: Generic Name Dose Route Start Last Admin Trade Name Freq PRN Reason Stop Dose Admin Acetaminophen 325 mg 05/05/19 16:25 05/11/19 21:31 Tylenol PO 325 mg Q6H PRN Administration Non Cardiac Pain or Temp>100.5 Albuterol 2.5 mg 05/05/19 16:32 Proventil IH Q4HRT PRN Wheezing Carvedilol 3.125 mg 05/07/19 22:00 05/15/19 09:39 Coreg PO Not Given BID BRIELLE Diphenoxylate HCl/Atropine 1 tab 05/07/19 15:11 Lomotil PO Q6H PRN Diarrhea Haloperidol Lactate 5 mg 05/04/19 13:16 Haldol IV Q1H PRN Unrespon. to mult. doses BZD's Levothyroxine Sodium 25 mcg 05/06/19 06:00 05/15/19 06:16 Synthroid PO 25 mcg DAILY@0600 BRIELLE Administration Loperamide HCl 2 mg 05/07/19 14:20 05/07/19 15:26 Imodium PO 2 mg Q2H PRN Administration Diarrhea Lorazepam 2 mg 05/04/19 13:16 Ativan IV Q1H PRN CIWA-Ar 8-15 Lorazepam 4 mg 05/04/19 13:16 Ativan IV Q1H PRN CIWA-Ar 16-25 Metoclopramide HCl 10 mg 05/04/19 12:20 Reglan IV Q8H PRN Nausea And Vomiting Ondansetron HCl 4 mg 05/04/19 12:20 Zofran IV Q4H PRN N/V unrelieved by Reglan Sodium Bicarbonate 650 mg 05/13/19 10:00 05/15/19 09:39 Sodium Bicarbonate PO 650 mg BID BRIELLE Administration Thiamine HCl 100 mg 05/04/19 14:00 05/15/19 09:39 Vitamin B-1 PO 100 mg QDAY BRIELLE Administration Nutrition/Malnutrition Assess - Dietary Evaluation Nutrition/Malnutrition Findings: Nutrition Notes Start: 05/04/19 12:51 Freq: Status: Active Protocol: Document 05/11/19 12:52 LM (Rec: 05/11/19 13:02 LM [id number]) Nutrition Notes Initial or Follow up Reassessment Other Pertinent Diagnosis Hypothyroidism, ETOH cirrhosis , hypokalemia, bilat hand pain Current Diet GI soft cardiac Labs/Tests Reviewed Pertinent Medications Reviewed Height 5 ft 6 in Weight 86.2 kg [place] Body Weight (kg) 59.09 BMI 30.7 Subjective/Other Information Pt stated she only ate cornflakes milk this AM and Glucerna this AM. Pt does not want eggs, toast, or grits. Encouraged pt to eat before drinking ONS. Percent of energy/protein needs met: less than 20% of kcal and protein needs Burn Absent Trauma Absent GI Symptoms None Minimum of two criteria No physical signs of malnutrition #1 Nutrition Diagnosis Inadequate oral intake Diagnosis Progress(for reassessment Continues documentation) Is patient on ventilator? No Is Patient Ambulatory and/or Out of Bed Yes REE-([facility]-ambulatory/OOB) [ [id number] [id number]] Calculation Used for Recommendations [facility] Additional Notes PRO needs (1-1.2g/kg): 82-98g/ day Fluid needs: 1mL/kcal Nutrition Intervention Change Diet Order: Continue GI soft diet cardiac Add Supplement/Snack (indicate name/kcal Glucerna strawberry TID /protein ) Provides kCal: 660 Provides Protein (gm) 30 Goal #1 Meet at least 80% of kcal and protein needs Anticipated Discharge Needs: Cardiac diet with ONS as needed Follow-Up By: 05/16/19 Additional Comments F/U for PO/ONS intakes
[2019-05-16] MEDS: LEVOTHYROXINE 25 MCG TAB PO SCH (06:48)
[2019-05-16] MEDS: SODIUM BICARBONATE 650 MG TAB PO SCH (09:24)
[2019-05-16] MEDS: THIAMINE 100 MG TAB PO SCH (09:24)
[2019-05-16 09:25] VITALS: BP 111/75
[2019-05-16] MEDS: carvediloL 3.125 MG TAB PO SCH (09:25)
--- NOTE | 2019-05-16 16:47 | Discharge Summary ---
Providers - Providers Date of Admission: 05/04/19 08:39 Date of discharge: 05/16/19 Attending physician: ERICKA STEWART 05/04/19 13:12 Consult to Physician [CONS] Routine Comment: Consulting Provider: ANNA LIVINGSTON Physician Instructions: Reason For Exam: alcohol liver disease, Dr. Livingston's pt 05/05/19 16:19 Consult to Physician [CONS] Routine Comment: Consulting Provider: SHAYNA DURANT Physician Instructions: Reason For Exam: 7beat NSVT, recent syncopal episode last admission 05/08/19 11:36 Consult to Cardiac Rehabilitation [CONS] Routine Reason For Exam: Cardiac Rehab Evaluation Primary care physician: [employer] Hospitalization Reason for admission: Severe symptomatic hypokalemia Condition: Stable Pertinent studies: Echocardiogram: EF estimated at 30-35% Hospital course: Final discharge diagnosis: -Severe alcoholic cardiomyopathy with EF of 20% -NSVT -Severe symptomatic hypokalemia -Intractable N/V -Hypomagnesemia -Diarrhea -Acute cystitis without hematuria -Alcohol dependency with withdrawal -Alcoholic liver disease Hospital cause: Pt was admitted and placed on both potassium and magnesium supplements in addition to antiemetics and antidiarrheal agents. She also received antibiotic for UTI. In addition, she was placed on CIWA protocol. Echocardiogram done showed EF of 30-35%. Further evaluation with [facility] was done by the cardiology which showed EF of 20% with normal coronaries. Medical management with life vest was then recommended. Subsequently, she improved clinically and was then cleared by the cardiology for discharge with clinic follow-up. Prior to discharge, patient was counseled on alcohol use cessation. Disposition: [id number] HOME UNDER [facility] Time spent for discharge: 40 minutes Core Measure Documentation - Palliative Care Palliative Care/ Comfort Measures: Not Applicable - Core Measures Any of the following diagnoses?: none Exam - Constitutional Vitals: Temp Pulse Resp BP Pulse Ox 98.5 F 84 18 111/75 97 05/16/19 03:41 05/16/19 11:30 05/16/19 10:00 05/16/19 09:25 05/16/19 10:00 General appearance: Present: no acute distress, well-nourished - EENT Eyes: Present: PERRL, EOM intact ENT: hearing intact, clear oral mucosa - Neck Neck: Present: supple, normal ROM - Respiratory Respiratory effort: normal Respiratory: bilateral: CTA - Cardiovascular Rhythm: regular Heart Sounds: Present: S1 & S2. Absent: rub, click - Extremities Extremities: No edema Peripheral Pulses: within normal limits - Abdominal General gastrointestinal: Present: soft, non-tender, non-distended, normal bowel sounds - Integumentary Integumentary: Present: clear, warm, dry - Musculoskeletal Musculoskeletal: gait normal, strength equal bilaterally - Psychiatric Psychiatric: appropriate mood/affect, intact judgment & insight - Neurologic Neurologic: CNII-XII intact, moves all extremities Plan Follow up with: BERNADETTE GANN MD [Staff Physician] - 7 Days (Follow up in our [place] office with Dr. Gann on 05/16/2019 @ 1:00PM. ) PRIMARY CARE, [Primary Care Provider] - 7 Days Prescriptions: carvediloL [Coreg] 3.125 mg PO BID #60 tablet Loperamide [Imodium] 2 mg PO Q2H PRN #30 capsule PRN Reason: Diarrhea Levothyroxine [Synthroid] 25 mcg PO DAILY@0600 #30 tablet Thiamine [Vitamin B-1] 100 mg PO QDAY #30 tablet Lisinopril [Zestril TAB] 2.5 mg PO QDAY #30 tablet
== END 2019-05-16 18:47 | disposition home health service (06) | DRG 872 ==
LOC: ED 04:01 → 4A 08:39
PROVIDERS: ADMIT Internal Medicine; ATTEND Internal Medicine
PROC: 4A023N7 Measurement of Cardiac Sampling and Pressure, Left Heart, Percutaneous Approach (ICD-10-PCS; principal; 2019-05-08)
PROC: B2111ZZ Fluoroscopy of Multiple Coronary Arteries using Low Osmolar Contrast (ICD-10-PCS; 2019-05-08)
PROC: B2151ZZ Fluoroscopy of Left Heart using Low Osmolar Contrast (ICD-10-PCS; 2019-05-08)
DX: A41.9 Sepsis, unspecified organism (principal); I47.1 Supraventricular tachycardia; I42.6 Alcoholic cardiomyopathy; N30.00 Acute cystitis without hematuria; F10.239 Alcohol dependence with withdrawal, unspecified; E83.42 Hypomagnesemia; E87.6 Hypokalemia; E03.9 Hypothyroidism, unspecified; K70.30 Alcoholic cirrhosis of liver without ascites; I95.9 Hypotension, unspecified; F12.90 Cannabis use, unspecified, uncomplicated; K21.9 Gastro-esophageal reflux disease without esophagitis; I10 Essential (primary) hypertension; M19.90 Unspecified osteoarthritis, unspecified site; N28.9 Disorder of kidney and ureter, unspecified; Z90.710 Acquired absence of both cervix and uterus; Z83.3 Family history of diabetes mellitus; Z82.3 Family history of stroke; Z71.41 Alcohol abuse counseling and surveillance of alcoholic
CPT/HCPCS: 36415; 70450; 74022; 80048; 80053; 80307; 81001; 82140; 82550; 82553; 82607; 83690; 83735; 84207; 84425; 84443; 84484; 85025; 85027; 85610; 85730; 93005; 93010; 93306; 93458; 96374; G0378; C1894; J0696; J1644; J2060; J2250; J3010; J3475; J3480; J7040; Q9967